=== PATIENT | male | born 1945 | race Hispanic/Latino ===

== ENCOUNTER 2016-11-10 15:16 | Emergency (ER) | payer MEDICARE, MEDICAID ==
[2016-11-10 15:17] VITALS: BMI 26.6
[2016-11-10 15:47] VITALS: RESP 18
[2016-11-10] MEDS ORDERED: Phenylephrine 1% Nasal Spray (15 ml) NAS STA (16:36)
--- NOTE | 2016-11-10 16:41 | C.PDOC ---
History Of Present Illness 71 year old patient, with a past medical history of hypertension, presents to the ED complaining of injuries after falling prior to arrival. Patient states he slipped in the rain and fell face first onto the [place]. Patient now complains of a mild headache and nasal pain. He notes he only fell due to the rain and denies any other complaints. - HPI Time Seen by Provider: 11/10/16 16:00 Chief Complaint (Nursing): Trauma History Per: Patient History/Exam Limitations: no limitations Onset/Duration Of Symptoms: Mins (just prior to arrival) Location Of Injury: Anterior: Face Severity: Mild Pain Scale Rating Of: 3 Recent travel outside of the [place]: No - Fall Fall:Prior To Injury: Slipped Past Medical History Reviewed: Historical Data, Nursing Documentation, Vital Signs Vital Signs: Last Vital Signs Temp 97.7 F 11/10/16 16:57 Pulse 66 11/10/16 16:57 Resp 18 11/10/16 16:57 BP 171/86 H 11/10/16 16:57 Pulse Ox 100 11/10/16 17:47 - Medical History PMH: Arthritis, HTN, Seizures - [facility] Procedures CLOSED ENDOSCOPIC BIOPSY OF LARGE INTESTINE (01/20/13) ESOPHAGOGASTRODUODENOSCOPY [EGD] W/CLOSED BIOPSY (01/20/13) Family History: States: Unknown Family Hx - Social History Hx Tobacco Use: No Hx Alcohol Use: No Hx Substance Use: No - Immunization History Hx Tetanus Toxoid Vaccination: Yes Hx Influenza Vaccination: Yes Hx Pneumococcal Vaccination: No Review Of Systems Except As Marked, All Systems Reviewed And Found Negative. Constitutional: Negative for: Fever ENT: Positive for: Nose Pain Cardiovascular: Negative for: Chest Pain Respiratory: Negative for: Shortness of Breath Gastrointestinal: Negative for: Nausea, Vomiting Neurological: Positive for: Headache. Negative for: Weakness, Numbness, Dizziness Physical Exam - Physical Exam Appears: Non-toxic, No Acute Distress Skin: Warm, Dry Head: Atraumatic, Normacephalic Eye(s): bilateral: Normal Inspection, PERRL, EOMI Ear(s): Bilateral: Normal Nose: Epistaxis (dried blood), Deformity, Tenderness (mild), No Septal Hematoma , Other (dry blood to bilateral nares) Oral Mucosa: Moist Throat: Normal Neck: Normal ROM, No Midline Cervical Tenderness, No Paracervical Tenderness, No Step Off Deformity, Supple Chest: Symmetrical Cardiovascular: Rhythm Regular Respiratory: Normal Breath Sounds, No Rales, No Rhonchi, No Wheezing Gastrointestinal/Abdominal: Soft, No Tenderness Back: Normal Inspection, No CVA Tenderness Extremity: Normal ROM Neurological/Psych: Oriented x3, Normal Speech, Normal Cognition Gait: Steady ED Course And Treatment O2 Sat by Pulse Oximetry: 100 (room air) Pulse Ox Interpretation: Normal Medical Decision Making Medical Decision Making: Impression: 71 y/o male with headache and nasal pain s/p fall Plan: * Head CT w/o contrast * Maxillofacial CT w/o contrast * Adacel * Phenylephrine 545: pt with nasal bone fracture. bleeding controlled. ct head neg. advise outpt f/u and return precautions Disposition - Disposition Referrals: Byron Morales MD [Staff Provider] - Disposition: HOME/ ROUTINE Disposition Time: 17:44 Condition: STABLE Additional Instructions: please follow up with ENT. return to er with worsening symptoms or concerns. Instructions: Nasal Fracture (ED), Head Injury (ED) - Clinical Impression Clinical Impression: Nasal bone fracture, Head injury - Scribe Statement Pily Landa Provider Attestation: All medical record entries made by the Scribe were at my direction and personally dictated by me. I have reviewed the chart and agree that the record accurately reflects my personal performance of the history, physical exam, medical decision making, and the department course for this patient. I have also personally directed, reviewed, and agree with the discharge instructions and disposition.
[2016-11-10 16:58] VITALS: BP 171/86; PULSE 66; TEMP 97.7
[2016-11-10 17:20] VITALS: O2SAT 100
[2016-11-10] MEDS ORDERED: Phenylephrine 1% Nasal Spray (15 ml) ONE (17:20)
--- NOTE | 2016-11-10 17:36 | CT ---
PROCEDURE: CT HEAD WITHOUT CONTRAST. HISTORY: fall COMPARISON: Comparison is made to the previous study dated 09/21/2015 TECHNIQUE: Axial computed tomography images were obtained through the head/brain without intravenous contrast. Radiation dose: Total exam DLP = 838.43 mGy-cm. This CT exam was performed using one or more of the following dose reduction techniques: Automated exposure control, adjustment of the mA and/or kV according to patient size, and/or use of iterative reconstruction technique. FINDINGS: HEMORRHAGE: No intracranial hemorrhage. BRAIN: Small encephalomalacia at the right temporal lobe at the region of previously seen hemorrhagic contusion. Mild atrophy. VENTRICLES: Unremarkable. No hydrocephalus. CALVARIUM: Unremarkable. PARANASAL SINUSES: Unremarkable as visualized. No significant inflammatory changes. MASTOID AIR CELLS: Unremarkable as visualized. No inflammatory changes. OTHER FINDINGS: None. IMPRESSION: No evidence of acute intracranial hemorrhage intracranial collection mass effect or midline shift. Small encephalomalacia at the right temporal lobe at the region of previously seen hemorrhagic contusion.
--- NOTE | 2016-11-10 17:43 | CT ---
PROCEDURE: CT MAXILLOFACIAL BONES WITHOUT CONTRAST HISTORY: fall COMPARISON: None TECHNIQUE: Contiguous axial CT images of the maxillofacial bones were obtained. Coronal and sagittal reformats were generated. Radiation dose: Total exam DLP = 825.35 mGy-cm. This CT exam was performed using one or more of the following dose reduction techniques: Automated exposure control, adjustment of the mA and/or kV according to patient size, and/or use of iterative reconstruction technique. FINDINGS: NASAL BONES: There is nondisplaced left nasal bone fracture. There is also displaced nasal septal fracture. Opacification of the left nasal cavity could be due to hemorrhage. ORBITS: Unremarkable. PARANASAL SINUSES/ MASTOIDS: Clear. MAXILLA: Unremarkable. MANDIBLE/ TEMPOROMANDIBULAR JOINTS: Unremarkable. SKULL BASE: Unremarkable. TEMPORAL BONES: Middle ears and mastoid grossly unremarkable. OTHER FINDINGS: Advanced degenerative changes at the cervical spine P IMPRESSION: Nasal bone fracture. Displaced nasal septum fracture. Opacification of the left nasal cavity could be due to hemorrhage. Otherwise no acute fracture.
== END 2016-11-10 18:05 | disposition home or self-care (01) ==
LOC: C.ER 15:16
DX: S02.2XXA Fracture of nasal bones, initial encounter for closed fracture (principal); W01.0XXA Fall on same level from slipping, tripping and stumbling without subsequent striking against object, initial encounter; Y92.480 Sidewalk as the place of occurrence of the external cause

== ENCOUNTER 2016-11-24 14:02 | Inpatient (IN) | payer MEDICARE, MEDICAID ==
[2016-11-24 14:02] VITALS: BMI 26.6
[2016-11-24 15:18] LABS: BASO # 0.1 K/uL (0.0-0.2); BASO % 0.9 % (0.0-2.0); EOS # 0.2 K/uL (0.0-0.7); EOS % 2.4 % (0.0-4.0); HEMATOCRIT 35.4 % (35.0-51.0); LYMPH # 0.8 K/uL (1.0-4.3); LYMPH % 11.9 % (20.0-40.0); MEAN CELL VOLUME 88.6 fL (80.0-94.0); MEAN CORPUSCULAR HGB CONC 32.7 g/dL (33.0-37.0); MEAN PLATELET VOLUME 7.2 fL (7.2-11.7); MONO # 0.5 K/uL (0.0-0.8); RED CELL DISTRIBUTION WIDTH 14.8 % (11.5-14.5); WHITE BLOOD COUNT 6.9 K/uL (4.8-10.8)
[2016-11-24 15:26] LABS: CHLORIDE 97 mmol/L (98-107); SODIUM 134 mmol/L (132-148)
[2016-11-24 15:29] LABS: ALB/GLOB RATIO 1.5 (1.0-2.1); AST/SGOT 28 U/L (17-59); BILIRUBIN,TOTAL 0.5 mg/dL (0.2-1.3); CARBON DIOXIDE 30 mmol/L (22-30); GFR AFRICAN-AMERICAN > 60; TOTAL PROTEIN 6.2 g/dL (6.3-8.3)
[2016-11-24 15:30] LABS: ALKALINE PHOSPHATASE 109 U/L (38-126); ALT/SGPT 24 U/L (21-72); BLOOD UREA NITROGEN 13 mg/dL (9-20); GLUCOSE,RANDOM 79 mg/dL (75-110)
[2016-11-24 15:36] LABS: INR 0.9
--- NOTE | 2016-11-24 15:42 | CT ---
PROCEDURE: CT HEAD WITHOUT CONTRAST. HISTORY: seizure COMPARISON: 11/10/2016 TECHNIQUE: Axial computed tomography images were obtained through the head/brain without intravenous contrast. Radiation dose: Total exam DLP = 981.84 mGy-cm. This CT exam was performed using one or more of the following dose reduction techniques: Automated exposure control, adjustment of the mA and/or kV according to patient size, and/or use of iterative reconstruction technique. FINDINGS: HEMORRHAGE: Very small amount of subdural blood in the interhemispheric fissure posteriorly and along the tentorium cerebelli, right greater than left. No other extra-axial collection is identified. No subarachnoid blood no intraventricular hemorrhage. BRAIN: No mass effect or edema. Minimal encephalomalacia right temporal lobe at the location of prior hemorrhagic contusion. No significant generalized atrophy. No significant chronic white matter ischemic change. No evidence of acute infarct. VENTRICLES: Unremarkable. No hydrocephalus. CALVARIUM: Unremarkable. PARANASAL SINUSES: Unremarkable as visualized. No significant inflammatory changes. MASTOID AIR CELLS: Unremarkable as visualized. No inflammatory changes. OTHER FINDINGS: None. IMPRESSION: Small subdural hemorrhage in the interhemispheric fissure and over the tentorium cerebelli. No other extra-axial collection. No parenchymal hemorrhage. No intraventricular hemorrhage. Minimal encephalomalacia right temporal lobe status post hemorrhagic contusion. These findings were discussed by telephone with Dr. Lechuga at 3:40 p.m. on 11/24/2016.
--- NOTE | 2016-11-24 15:44 | C.PDOC ---
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 Patient is unable to recall details of the event and states he "just woke up in the ambulance." Patient states he has a history of seizures and has been compliant with his Rx for Dilantin. (+) headache. no visual changes. No tongue biting. He denies nausea, vomiting, urinary/bowel incontinence, upper/lower extremity numbness/weakness. Time Seen by Provider: 11/24/16 14:50 Chief Complaint (Nursing): Seizure History Per: Patient, EMS History/Exam Limitations: no limitations Recent Seizure Activity Began: Just Before Arrival Length Of Seizures (Duration): Unknown Past Medical History Reviewed: Historical Data, Nursing Documentation, Vital Signs Vital Signs: Last Vital Signs Temp 98.6 F 11/24/16 17:23 Pulse 70 11/24/16 17:23 Resp 18 11/24/16 17:23 BP 161/64 H 11/24/16 17:23 Pulse Ox 98 11/24/16 19:14 - Medical History PMH: Arthritis, HTN, Seizures Denies: Chronic Kidney Disease Surgical History: No Surg Hx - [facility] Procedures CLOSED ENDOSCOPIC BIOPSY OF LARGE INTESTINE (01/20/13) ESOPHAGOGASTRODUODENOSCOPY [EGD] W/CLOSED BIOPSY (01/20/13) Family History: States: Unknown Family Hx - Social History Hx Tobacco Use: No Hx Alcohol Use: No Hx Substance Use: No - Immunization History Hx Tetanus Toxoid Vaccination: Yes Hx Influenza Vaccination: Yes Hx Pneumococcal Vaccination: No Review Of Systems Except As Marked, All Systems Reviewed And Found Negative. Gastrointestinal: Negative for: Nausea, Vomiting Genitourinary: Negative for: Incontinence Neurological: Positive for: Seizures, Headache Physical Exam - Physical Exam Appears: Non-toxic, No Acute Distress Skin: Normal Color, Warm, Dry Head: Normacephalic, Tenderness (left lateral), Laceration (2cm, to left parietal lobe) Eye(s): bilateral: Normal Inspection, PERRL, EOMI Ear(s): Bilateral: Normal Nose: Normal, No Discharge Oral Mucosa: Moist Tongue: Normal Appearing, No Bite Neck: Normal ROM, Supple Lymphatic: Normal Exam Chest: Symmetrical, No Deformity, No Tenderness Cardiovascular: Rhythm Regular, No Murmur Respiratory: Normal Breath Sounds, No Rales, No Rhonchi, No Wheezing Gastrointestinal/Abdominal: Soft, No Tenderness, No Guarding Back: Normal Inspection, No Vertebral Tenderness, No Paraspinal Tenderness Extremity: Normal ROM, Capillary Refill (less than 2 seconds ) Neurological/Psych: Oriented x3, Normal Speech, Normal Cognition, Other (no focal deficits ) Gait: Steady ED Course And Treatment - Laboratory Results Result Diagrams: 11/24/16 15:14 11/24/16 15:14 ECG: Interpreted By Me, Viewed By Me ECG Rhythm: Sinus Rhythm Interpretation Of ECG: Sinus Rhythm at rate 74bpm. Nonspecific changes. Rate From EC O2 Sat by Pulse Oximetry: 98 (on RA) Pulse Ox Interpretation: Normal - CT Scan/US CT Head Other Rad Studies (CT/US): Interpreted By Me, Read By Radiologist, Radiology Report Reviewed CT/US Interpretation: Accession No. : [id number]. Patient Name / ID : LAUREL ALVARENGA / [id number]. Exam Date : 11/24/2016 15:23:54 ( Approved ). Study Comment : Sex / Age : M / 71Y. Creator : Ashwin Rosales MD. Dictator : Ashwin Rosales MD. Heel Seat Pounder : Legal Project Manager : Ashwin Rosales MD. Approver2 : Report Date : 11/24/2016 15:40:58. My Comment : . PROCEDURE : CT HEAD WITHOUT CONTRAST. HISTORY: seizure. COMPARISON: 11/10/2016. TECHNIQUE: Axial computed tomography images were obtained through the head/ brain without intravenous contrast. Radiation dose: Total exam DLP = 981.84 mGy-cm. This CT exam was performed using one or more of the following dose reduction techniques: Automated exposure control, adjustment of the mA and/or kV according to patient size, and/or use of iterative reconstruction technique. FINDINGS: HEMORRHAGE: Very small amount of subdural blood in the interhemispheric fissure posteriorly and along the tentorium cerebelli, right greater than left. No other extra-axial collection is identified. No subarachnoid blood no intraventricular hemorrhage. BRAIN: No mass effect or edema. Minimal encephalomalacia right temporal lobe at the location of prior hemorrhagic contusion. No significant generalized atrophy. No significant chronic white matter ischemic change. No evidence of acute infarct. VENTRICLES : Unremarkable. No hydrocephalus. CALVARIUM: Unremarkable. PARANASAL SINUSES : Unremarkable as visualized. No significant inflammatory changes. MASTOID AIR CELLS: Unremarkable as visualized. No inflammatory changes. OTHER FINDINGS : None. IMPRESSION: Small subdural hemorrhage in the interhemispheric fissure and over the tentorium cerebelli. No other extra-axial collection. No parenchymal hemorrhage. No intraventricular hemorrhage. Minimal encephalomalacia right temporal lobe status post hemorrhagic contusion. These findings were discussed by telephone with Dr. Lechuga at 3:40 p.m. on 11/24/2016. Progress Note: labs, EKG, CT Head ordered and reviewed. Patient recieved Dilantin IV, Tylenol PO. Case discussed with Dr. Crooks, who instructs admission and repeat Head CT tomorrow. Case discussed with Dr. Murdock, who agrees with plan for admission. Laceration - Laceration Repair left partial scalp Wound Length (In cm): 2 cm Description Of Wound: Irregular Wound Cleansed With: Betadine, Sterile Saline Anesthesia: Lidocaine 1%, With Epi Wound Examination: Irrigated With Saline, No FB With Wound Exploration, No Tendon Injury With Wound Exploration Wound Closure: Ag (2) Wound Complexity: Simple Disposition - Disposition Disposition: HOSPITALIZED Disposition Time: 16:26 Condition: STABLE - Clinical Impression Clinical Impression: Subdural hemorrhage, Seizure - PA / SOLAR PANEL TECHNICIAN / Resident Statement MD/DO has reviewed & agrees with the documentation as recorded. - Scribe Statement The provider has reviewed the documentation as recorded by the Scribe (Tamiko Landa) All medical record entries made by the Scribe were at my direction and personally dictated by me. I have reviewed the chart and agree that the record accurately reflects my personal performance of the history, physical exam, medical decision making, and the department course for this patient. I have also personally directed, reviewed, and agree with the discharge instructions and disposition.
[2016-11-24] MEDS ORDERED: Phenytoin 100 mg/2 ml Inj IVP STA (15:55)
[2016-11-24] MEDS ORDERED: Bacitracin 500 Units/gm Oint Foilpak UD ONE (16:24)
[2016-11-24] MEDS ORDERED: Lidocaine 2% w Epi 1:100,000 Inj IJ ONE (16:32)
[2016-11-24 17:00] LABS: RBC URINE < 1 /hpf (0-3); URINE BACTERIA RARE (<OCC); URINE BILIRUBIN NEGATIVE (NEGATIVE); URINE BLOOD NEGATIVE (NEGATIVE); URINE COLOR Yellow (YELLOW); URINE GLUCOSE (UA) NORMAL (Normal); URINE KETONE NEGATIVE (NEGATIVE); URINE LEUKOCYTE ESTERASE NEG Leu/uL (Negative); URINE PROTEIN NEGATIVE (NEGATIVE); URINE UROBILINOGEN NORMAL mg/dL (0.2-1.0); WBC URINE < 1 /hpf (0-5)
--- NOTE | 2016-11-24 18:51 | DS ---
This is a 71-year-old gentleman with a known seizure disorder, does not have any recollection for the incident. Apparently suffered a grand mal seizure, fell, struck his head, suffered a left parietal laceration. CT showed a small amount of subdural blood layering along the tentorium. The patient is bright, awake and alert. He is oriented x 3, follows all commands. Pupils are equal, reactive. EOMs are full. Face is symmetric. He is moving all extremities with 5/5 strength. Sens ory exam is grossly intact. CT of the brain shows a very minimal amount of layering of subdural blood along the tentorium of no c linical significance. IMPRESSION AND PLAN: The patient is being admitted for seizure management to get his anticonvulsants drug level back up. My recommendation would be just simply to repeat a CT tomorrow morning. It is very unlikely that will be worsened and then from my standpoint, he can be safely discharged. Javi Crooks MD cc: 131 TT: 11/24/2016 18:51:29 jn
[2016-11-24 19:35] VITALS: RESP 20
[2016-11-25 07:44] LABS: HEMATOCRIT 38.3 % (35.0-51.0); MEAN CELL VOLUME 88.9 fL (80.0-94.0); MEAN CORPUSCULAR HEMOGLOBIN 29.9 pg (27.0-31.0); MEAN CORPUSCULAR HGB CONC 33.6 g/dL (33.0-37.0); MEAN PLATELET VOLUME 7.5 fL (7.2-11.7); RED CELL DISTRIBUTION WIDTH 14.7 % (11.5-14.5); WHITE BLOOD COUNT 6.3 K/uL (4.8-10.8)
[2016-11-25 07:48] LABS: CHLORIDE 99 mmol/L (98-107)
[2016-11-25 07:49] LABS: POTASSIUM 4.1 mmol/L (3.6-5.2); SODIUM 137 mmol/L (132-148)
[2016-11-25 07:50] LABS: BILIRUBIN,TOTAL 0.6 mg/dL (0.2-1.3); CARBON DIOXIDE 33 mmol/L (22-30); GFR AFRICAN-AMERICAN > 60
[2016-11-25 07:51] LABS: ALB/GLOB RATIO 1.4 (1.0-2.1); ALKALINE PHOSPHATASE 113 U/L (38-126); ALT/SGPT 23 U/L (21-72); AST/SGOT 24 U/L (17-59); BLOOD UREA NITROGEN 13 mg/dL (9-20); CALCIUM 8.5 mg/dl (8.6-10.4); GLUCOSE,RANDOM 86 mg/dL (75-110); TOTAL PROTEIN 6.2 g/dL (6.3-8.3)
[2016-11-25] MEDS: Multiple Vitamins Tab PO SCH (10:35)
--- NOTE | 2016-11-25 11:54 | CARD ---
APPROVED REPORT EKG Measurement Heart [id number] OR [id number] <Conclusion> Normal sinus rhythm Incomplete right bundle branch block Left anterior fascicular block Minimal voltage criteria for LVH, may be normal variant Septal infarct, age undetermined Abnormal ECG
--- NOTE | 2016-11-25 13:14 | CP.PCM.HP ---
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 Patient is unable to recall details of the event and states he "just woke up in the ambulance." Patient states he has a history of seizures and has been compliant with his Rx for Dilantin. (+) headache. no visual changes. No tongue biting. He denies nausea, vomiting, urinary/bowel incontinence, upper/lower extremity numbness/weakness. Present on Admission - Present on Admission Any Indicators Present on Admission: Yes Review of Systems - Review of Systems Systems not reviewed;Unavailable: Acuity of Condition - Constitutional Constitutional: Fatigue, Lethargy, Malaise - EENT Eyes: absent: As Per HPI, Blind Spots, Blurred Vision, Change in Vision, Decreased Night Vision, Diplopia, Discharge, Dry Eye, Exophthalmos, Floaters, Irritation, Itchy Eyes, Loss of Peripheral Vision, Pain, Photophobia, Requires Corrective Lenses, Sees Flashes, Spots in Vision, Tunnel Vision, Other Visual Disturbances, Loss of Vision, Other Nose/Mouth/Throat: absent: As Per HPI, Epistaxis, Nasal Congestion, Nasal Discharge, Nasal Obstruction, Nasal Trauma, Nose Pain, Post Nasal Drip, Sinus Pain, Sinus Pressure, Bleeding Gums, Change in Voice, Dental Pain, Dry Mouth, Dysphagia, Halitosis, Hoarsness, Lip Swelling, Mouth Lesions, Mouth Pain, Odynophagia, Sore Throat, Throat Swelling, Tongue Swelling, Facial Pain, Neck Pain, Neck Mass, Other - Cardiovascular Cardiovascular: absent: As Per HPI, Acrocyanosis, Chest Pain, Chest Pain at Rest , Chest Pain with Activity, Claudication, Diaphoresis, Dyspnea, Dyspnea on Exertion, Edema, Irregular Heart Rhythm, Pain Radiating to Arm/Neck/Jaw, Leg Edema, Leg Ulcers, Lightheadedness, Orthopnea, Palpitations, Paroxysmal Nocturnal Dyspnea, Pedal Edema, Radiating Pain, Rapid Heart Rate, Slow Heart Rate, Syncope, Other - Respiratory Respiratory: absent: As Per HPI, Cough, Dyspnea, Hemoptysis, Dyspnea on Exertion , Wheezing, Snoring, Stridor, Pain on Inspiration, Chest Congestion, Excessive Mucous Production, Change in Mucous Color, Pain with Coughing, Other - Gastrointestinal Gastrointestinal: absent: As Per HPI, Abdominal Pain, Belching, Bloating, Change in Bowel Habits, Change in Stool Character, Coffee Ground Emesis, Constipation, Cramping, Diarrhea, Dyspepsia, Dysphagia, Early Satiety, Excessive Flatus, Fecal Incontinence, Heartburn, Hematemesis, Hematochezia, Loose Stools, Melena, Nausea, Odynophagia, Temesmus, Vomiting, Other - Neurological Neurological: Abnormal Movements, Dizziness. absent: As Per HPI, Abnormal Gait , Abnormal Hearing, Abnormal Speech, Behavioral Changes, Burning Sensations, Confusion, Convulsions, Disequilibrium, Numbness, Focal Weakness, Frequent Falls , Headaches, Lack of Coordination, Loss of Vision, Memory Loss, Paresthesias, Radicular Pain, Restless Legs, Sensory Deficit, Syncope, Tingling, Tremor, Vertigo, Weakness, Other Visual Disturbances, Other - Psychiatric Psychiatric: absent: As Per HPI, Abnormal Sleep Pattern, Anhedonia, Anxiety, Auditory Hallucinations, Behavioral Changes, Change in Appetite, Change in Libido, Confusion, Depression, Difficulty Concentrating, Hallucinations, Homicidal Ideation, Hopelessness, Irritability, Memory Loss, Mood Swings, Panic Attacks, Paranoia, Suicidal Ideation, Visual Hallucinations, Tactile Hallucinations, Other Past Patient History - Infectious Disease Hx of Infectious Diseases: None - Past Medical History & Family History Past Medical History?: Yes - Past Social History Smoking Status: Former Smoker - CARDIAC Hx Hypertension: Yes - PULMONARY Hx Respiratory Disorders: No - NEUROLOGICAL Hx Seizures: Yes - HEENT Hx HEENT Problems: Yes Other/Comment: glasses for reading - RENAL Hx Chronic Kidney Disease: No - ENDOCRINE/METABOLIC Hx Endocrine Disorders: No - HEMATOLOGICAL/ONCOLOGICAL Hx Blood Disorders: No - INTEGUMENTARY Hx Dermatological Problems: No - MUSCULOSKELETAL/RHEUMATOLOGICAL Hx Arthritis: Yes - GASTROINTESTINAL Hx Gastrointestinal Disorders: No - GENITOURINARY/GYNECOLOGICAL Hx Genitourinary Disorders: No - PSYCHIATRIC Hx Substance Use: No - SURGICAL HISTORY Hx Surgeries: Yes Hx Orthopedic Surgery: Yes (LEFT SHOULDER) - ANESTHESIA Hx Anesthesia: Yes Hx Anesthesia Reactions: No Hx Malignant Hyperthermia: No Has any member of the family had a problem w/ anesthesia?: No Meds Allergies/Adverse Reactions: Allergies Allergy/AdvReac Type Severity Reaction Status Date / Time No Known Allergies Allergy Verified 11/24/16 14:13 Physical Exam - Constitutional Appears: No Acute Distress, Confused - Head Exam Head Exam: ATRAUMATIC, NORMAL INSPECTION, NORMOCEPHALIC - Eye Exam Eye Exam: EOMI, Normal appearance, PERRL Pupil Exam: NORMAL ACCOMODATION, PERRL - ENT Exam ENT Exam: Mucous Membranes Moist, Normal Exam - Respiratory Exam Respiratory Exam: Clear to Auscultation Bilateral, NORMAL BREATHING PATTERN - Cardiovascular Exam Cardiovascular Exam: REGULAR RHYTHM - GI/Abdominal Exam GI & Abdominal Exam: Normal Bowel Sounds, Soft. absent: Tenderness Results - Vital Signs Recent Vital Signs: Last Vital Signs Temp 97.7 F 11/25/16 04:25 Pulse 97 H 11/25/16 11:26 Resp 20 11/25/16 04:25 BP 163/94 H 11/25/16 11:26 Pulse Ox 100 11/25/16 11:26 - Labs Result Diagrams: 11/25/16 07:27 11/25/16 07:27 Labs: Laboratory Results - last 24 hr 11/24/16 11/24/16 11/25/16 16:02 23:50 07:27 WBC 6.3 RBC 4.30 L Hgb 12.9 Hct 38.3 MCV 88.9 MCH 29.9 MCHC 33.6 RDW 14.7 H Plt Count 223 MPV 7.5 Sodium Potassium Chloride Carbon Dioxide Anion Gap BUN Creatinine Est GFR ( Amer) Est GFR (Non-Af Amer) Random Glucose Calcium Total Bilirubin AST ALT Alkaline Phosphatase Total Protein Albumin Globulin Albumin/Globulin Ratio Urine Color Yellow Urine Clarity Clear Urine pH 7.0 Ur Specific [place] 1.010 Urine Protein Negative Urine Glucose (UA) Normal Urine Ketones Negative Urine Blood Negative Urine Nitrate Negative Urine Bilirubin Negative Urine Urobilinogen Normal Ur Leukocyte Esterase Neg Urine WBC (Auto) < 1 Urine RBC (Auto) < 1 Ur Squamous Epith Cells < 1 Urine Bacteria Rare Urine Opiates Screen Negative Urine Methadone Screen Negative Ur Barbiturates Screen Negative Phenytoin Ur Phencyclidine Scrn Negative Ur Amphetamines Screen Negative U Benzodiazepines Scrn Negative U Oth Cocaine Metabols Negative U Cannabinoids Screen Negative 11/25/16 11/25/16 07:27 07:27 WBC RBC Hgb Hct MCV MCH MCHC RDW Plt Count MPV Sodium 137 Potassium 4.1 Chloride 99 Carbon Dioxide 33 H Anion Gap 9 L BUN 13 Creatinine 0.9 Est GFR ( Amer) > 60 Est GFR (Non-Af Amer) > 60 Random Glucose 86 Calcium 8.5 L Total Bilirubin 0.6 AST 24 ALT 23 Alkaline Phosphatase 113 Total Protein 6.2 L Albumin 3.6 Globulin 2.6 Albumin/Globulin Ratio 1.4 Urine Color Urine Clarity Urine pH Ur Specific [place] Urine Protein Urine Glucose (UA) Urine Ketones Urine Blood Urine Nitrate Urine Bilirubin Urine Urobilinogen Ur Leukocyte Esterase Urine WBC (Auto) Urine RBC (Auto) Ur Squamous Epith Cells Urine Bacteria Urine Opiates Screen Urine Methadone Screen Ur Barbiturates Screen Phenytoin 18.7 Ur Phencyclidine Scrn Ur Amphetamines Screen U Benzodiazepines Scrn U Oth Cocaine Metabols U Cannabinoids Screen Assessment & Plan (1) Subdural hemorrhage Status: Suspected (2) Seizure Status: Chronic (3) Head injury Status: Acute
--- NOTE | 2016-11-25 13:14 | CP.PCM.PN ---
Subjective - Date & Time of Evaluation Date of Evaluation: 11/25/16 Time of Evaluation: 10:00 - Subjective Subjective: seen & evaluated Objective - Vital Signs/Intake and Output Vital Signs (last 24 hours): Temp Pulse Resp BP Pulse Ox 97.7 F 97 H 20 163/94 H 100 11/25/16 04:25 11/25/16 11:26 11/25/16 04:25 11/25/16 11:26 11/25/16 11:26 Intake and Output: 11/25/16 11/25/16 06:59 18:59 Output Total 1000 Balance -1000 - Medications Medications: Current Medications Acetaminophen (Tylenol 325mg Tab) 650 mg PO Q6 PRN PRN Reason: Headache Last Admin: 11/25/16 10:57 Dose: 650 mg Levetiracetam (Keppra) 500 mg PO BID [facility] Last Admin: 11/25/16 10:58 Dose: 500 mg Lisinopril (Zestril) 2.5 mg PO DAILY [facility] Last Admin: 11/25/16 12:55 Dose: 2.5 mg Multivitamins (Hexavitamin) 1 tab PO DAILY [facility] Last Admin: 11/25/16 10:35 Dose: Not Given Phenytoin Sodium (Dilantin) 100 mg PO QID [facility] Last Admin: 11/25/16 09:30 Dose: 100 mg - Labs Labs: 11/25/16 07:27 11/25/16 07:27 PT 10.1 SECONDS (9.7-12.2) 11/24/16 15:14 INR 0.9 11/24/16 15:14 APTT 31 SECONDS (21-34) 11/24/16 15:14 - Constitutional Appears: No Acute Distress - Head Exam Head Exam: ATRAUMATIC, NORMAL INSPECTION, NORMOCEPHALIC - Eye Exam Eye Exam: EOMI, Normal appearance, PERRL Pupil Exam: NORMAL ACCOMODATION, PERRL
--- NOTE | 2016-11-25 23:09 | CON ---
DATE: 11/25/2016 ATTENDING PHYSICIAN: Dr. Murdock REASON FOR CONSULTATION: Breakthrough seizures. HISTORY OF PRESENT ILLNESS: The patient is a 71-year-old gentleman with past medical history of meningitis as a child with a seizure disorder, on Dilantin. The patient had an episode of seizures followed by postictal confusion. The patient stated that he was with a friend and then saw himself in the ambulance. The patient is unable to give a detailed history. The patient does not recall how frequently gets the seizure. Does not recall when was the last seizure he had, although patient is alert, awake, oriented x 3. The patient stated that he has been on Dilantin for years as far as he recalls. In addition , the patient is complaining from unsteadiness and tendency to fall for a long time. PAST MEDICAL HISTORY: Seizure disorder, meningitis as a child. SOCIAL HISTORY: Nonsmoker, ethanol or drug abuser. ALLERGIES: No known allergic reaction to medications. FAMILY HISTORY: Noncontributory. MEDICATIONS: Dilantin. VITAL SIGNS: Blood pressure 163/94, respiration 20, temperature afebrile, pulse 97. LABORATORY DATA: Reviewed. PHYSICAL EXAMINATION: MENTAL STATUS: The patient is alert, awake, oriented x 3. Normal naming, repetition, comprehension, decreased attention span. Short-term memory, slow mental processing. Impaired calculation, recall. CRANIAL NERVES: Pupils are 2 mm bilaterally reactive. No facial asymmetry. Positive end gaze nystagmus bilaterally. No facial palsy, V1-V3 intact. MOTOR: Normal tone in upper extremities. No pronation drift. Fine finger movement impaired. Alternative movement impaired. Upper extremity, deltoid, elbow lead electrical engineer 5/5. Lower extremities, hip flexion, knee flexion and extension, ankle 5/5. Deep tendon reflexes 1-2 in the upper and lower extremities. Plantars flexion. SENSORY: Pinprick, light touch symmetrical. COORDINATION: Keibxg-dg-zaxs intact. Zxwr-au-igkb impaired. IMAGING: CAT scan of the brain reviewed, consistent with atrophy and minimal calcification in bilateral basal ganglia. IMPRESSION: Breakthrough seizures, probably secondary to low Dilantin level. The patient's Dilantin level was 3 at admission. Repeat Dilantin is pending. I strongly recommend to start the patient on Keppra rather than Dilantin because of the compliance and Dilantin needs continuous Dilantin levels and at least 750 mg of Keppra. I have started the patient on 500. Can be increased to 750, and then taper off Dilantin after discharge, 1 tablet every week or every 2 weeks. The patient does have a baseline dementia and the patient's ataxia could be secondary to patient's fluctuating Dilantin levels and longe time use of dilantin can cause neuropathy, it can be addressed as an out patient. The other option can be Lamictal, and then gradually increase Lamictal and taper off Dilantin. I strongly recommend the patient to be followed up by neurologist as an outpatient after discharge. No further workup recommended. The patient is known with a history of seizures in the past. follow up dilantin level. CAT scan did not reveal subdural hematoma or bleed. No need for EEG, as well. Thank you for the consultation. I will sign off the case. If needed, I can be called. Geronimo Crabtree MD cc: [id number] TT: 11/25/2016 23:09:14 Confirmation # [id number] Dictation # [id number] OMER
[2016-11-26] MEDS: Multiple Vitamins Tab PO SCH (10:09)
--- NOTE | 2016-11-26 10:44 | PN ---
DATE: 11/26/2016 ATTENDING PHYSICIAN: Dr. Murdock. The patient is complaining from a headache. No nausea, no vomiting. The patient is awake, alert, or iented to person, place, and time. Slow mental processing, decreased attention span, short-term maya ry. PHYSICAL EXAMINATION: VITAL SIGNS: Blood pressure 126/75, pulse 66, respirations 20. CRANIAL NERVES: Pupils are symmetrical, reactive. No facial asymmetry. No field defect. No photop hobia, no phonophobia, no nausea, no vomiting. MOTOR: Upper extremity, deltoid, elbow splicer helper 5/5. Lower extremities, hip, knee, ankle 5/5. COORDINATION: Qlkfzo-rt-hlqb intact. Uups-ta-hkml impaired. The patient is ataxic. IMPRESSION: After reviewing the CAT scan of the brain, the CAT scan is consistent with subdural smal l thin subdural hematoma in the falx cerebri and falx cerebelli extending to the left temporal region , and there is a questionable right frontal contusion. Status post a fall and soft tissue swelling in the left parietal region, and traumatic thin subdural hematoma, and questionable contrecoup contusion in the right temporal anterior region. We will repea t the CAT scan of the brain, and in addition, for his breakthrough seizures, I strongly recommend to continue the patient on Keppra and then taper off gradually Dilantin after discharge. The patient is preferable to be transferred to subacute rehab for lower extremity strengthening and a mbulation, and that is one of the reasons because of the patient's ataxia and falls, and the patient' s Dilantin should be tapered off because of ____compliant and because of the frequent falls. Thank you for the consultation. I will sign off the case. If needed, I can be called. Geronimo Crabtree MD cc: [id number] TT: 11/26/2016 10:44:00 Confirmation # [id number] Dictation # [id number]
--- NOTE | 2016-11-26 11:12 | CT ---
PROCEDURE: CT HEAD WITHOUT CONTRAST. HISTORY: f/u hematoma COMPARISON: None available. TECHNIQUE: Axial computed tomography images were obtained through the head/brain without intravenous contrast. Radiation dose: Total exam DLP = 981.84 mGy-cm. This CT exam was performed using one or more of the following dose reduction techniques: Automated exposure control, adjustment of the mA and/or kV according to patient size, and/or use of iterative reconstruction technique. FINDINGS: HEMORRHAGE: There has been no significant interval change in the small right tentorial subdural hematoma and small subdural hemorrhage along the posterior interhemispheric fissure on the right. BRAIN: There is redemonstration of a 13 mm high attenuation area in the posterior right temporal lobe with surrounding low attenuation stable since August 2015. Allred-white matter differentiation is preserved. There is no mass, mass effect or territorial infarction.There are coarse atherosclerotic calcifications in the cavernous carotid arteries. VENTRICLES: There is mild age-related global parenchymal volume loss and proportionate enlargement of the ventricles and cortical sulci. CALVARIUM: The skull base and calvarium are normal. PARANASAL SINUSES: Predominantly clear. MASTOID AIR CELLS: Predominantly clear. OTHER FINDINGS: None. IMPRESSION: No significant interval change in small right tentorial subdural hematoma and small subdural hemorrhage along the posterior interhemispheric fissure on the right. Suspect 13 mm encephalomalacia/ old contusions in the right posterior temporal lobe.
--- NOTE | 2016-11-26 13:50 | CARD ---
APPROVED REPORT EXAM: Two-dimensional and M-mode echocardiogram with Doppler and color Doppler. Other Information Quality : AverageRhythm : NSR INDICATION Syncope SEIZURE M-Mode DIMENSIONS RVDd1.25 (2.1-3.2cm)Left Atrium (MM)2.93 (2.5-4.0cm) IVSd0.74 (0.7-1.1cm)Aortic Root3.28 (2.2-3.7cm) LVDd5.43 (4.0-5.6cm)Aortic Cusp Exc.1.52 (1.5-2.0cm) PWd0.74 (0.7-1.1cm)FS (%) 32 % LVDs3.67 (2.0-3.8cm)LVEF (%)60 (>50%) Aortic Valve AoV Peak Alybihvt013.8cm/Titus Peak GR.10mmHg Mitral Valve MV E Bndtivjf36.6cm/sMV A Rknlspam05.0cm/sE/A ratio1.1 TDI E/Lateral E'0.0E/Medial E'0.0 Tricuspid Valve TR Peak Xcdlsrxx976nt/sTR Peak Gr.27eyVaYMSA40svZi LEFT VENTRICLE The left ventricle is normal size. There is normal left ventricular wall thickness. The left ventricular function is normal. The left ventricular ejection fraction is within the normal range. No regional wall motion abnormalities noted. Transmitral Doppler flow pattern is Grade I-abnormal relaxation pattern. No left ventricle thrombus noted on this study. There is no ventricular septal defect visualized. There is no left ventricular aneurysm. There is no mass noted in the left ventricle. RIGHT VENTRICLE The right ventricle is normal size. There is normal right ventricular wall thickness. The right ventricular systolic function is normal. ATRIA The left atrium size is normal. The right atrium size is normal. The interatrial septum is intact with no evidence for an atrial septal defect. AORTIC VALVE The aortic valve is normal in structure and function. No aortic regurgitation is present. There is no aortic valvular stenosis. There is no aortic valvular vegetation. MITRAL VALVE The mitral valve is normal in structure and function. There is no evidence of mitral valve prolapse. There is no mitral valve stenosis. Mitral regurgitation is mild. TRICUSPID VALVE The tricuspid valve is normal in structure and function. There is mild tricuspid regurgitation. Right ventricular systolic pressure is estimated at 30-40 mmHg. There is no tricuspid valve prolapse or vegetation. There is no tricuspid valve stenosis. PULMONIC VALVE The pulmonary valve is normal in structure and function. There is no pulmonic valvular regurgitation. There is no pulmonic valvular stenosis. GREAT VESSELS The aortic root is normal in size. The ascending aorta is normal in size. The pulmonary artery is normal. The IVC is normal in size and collapses >50% with inspiration. PERICARDIAL EFFUSION The pericardium appears normal. There is no pleural effusion. <Conclusion> The left ventricular function is normal. The left ventricular ejection fraction is within the normal range. No regional wall motion abnormalities noted. Mitral regurgitation is mild. There is mild tricuspid regurgitation. Right ventricular systolic pressure is estimated at 30-40 mmHg.
--- NOTE | 2016-11-26 15:05 | VASCLAB ---
PROCEDURE: HISTORY: syncope COMPARISON: None available. TECHNIQUE: Grayscale and duplex Doppler evaluation of the cervical carotid and vertebral arteries were performed. The common carotid, carotid bifurcations and cervical Internal Carotid Artery (ICA) and proximal External Carotid Artery (ECA) were evaluated. The vertebral arteries were evaluated for gross patency and flow direction. Report prepared by Robe Sandoval, BS, RVT FINDINGS: RIGHT CAROTID ARTERIES: 1. Common Carotid Artery: No significant focal plaque formation of the right common carotid artery. Maximum Peak Systolic velocity: 75 cm/sec: End-diastolic velocity 19 cm/sec. 2. Carotid Bifurcation: Calcific plaque formation. Maximum Peak Systolic velocity: 70 cm/sec: End-diastolic velocity 16 cm/sec. 3. Internal Carotid Artery: Minimal plaque formation of the right proximal ICA which does not result in hemodynamically significant stenosis. Plaque description: Calcific 3.1. Proximal Segment: Peak systolic velocity 99 cm/sec: End-diastolic velocity 29 cm/sec - % stenosis 0-15% 3.2. Middle Segment: Peak systolic velocity 123 cm/sec: End-diastolic velocity 36 cm/sec - % stenosis 0-15% 3.3. Distal Segment: Peak systolic velocity 130 cm/sec: End-diastolic velocity 38 cm/sec - % stenosis 0-15% 4. External Carotid Artery: No significant focal plaque formation. Peak systolic velocity 115 cm/sec 5. ICA/CCA Ratio: 1.7 LEFT CAROTID ARTERIES: 1. Common Carotid Artery: No significant focal plaque formation of the left common carotid artery. Maximum Peak Systolic velocity: 91 cm/sec: End-diastolic velocity 22 cm/sec. 2. Carotid Bifurcation: Calcific plaque formation. Maximum Peak Systolic velocity: 75 cm/sec: End-diastolic velocity 14 cm/sec. 3. Internal Carotid Artery: Minimal plaque formation of the left proximal ICA which does not result in hemodynamically significant stenosis. Plaque description: 3.1. Proximal Segment: Peak systolic velocity 82 cm/sec: End-diastolic velocity 22 cm/sec - % stenosis 0-15% 3.2. Middle Segment: Peak systolic velocity 135 cm/sec: End-diastolic velocity 38 cm/sec - % stenosis 0-15% 3.3. Distal Segment: Peak systolic velocity 130 cm/sec: End-diastolic velocity 34 cm/sec - % stenosis 0-15% 4. External Carotid Artery: No significant focal plaque formation. Peak systolic velocity 116 cm/sec 5. ICA/CCA Ratio: 1.5 VERTEBRAL ARTERIES: 1. Right Vertebral Artery: The right vertebral artery flow direction is antegrade. 2. Left Vertebral Artery: The left vertebral artery flow direction is antegrade. OTHER FINDINGS: 1. Right Brachial Blood pressure: 132 mmHg. 2. Left Brachial Blood pressure: 126 mmHg. IMPRESSION: RIGHT: Duplex scan does not suggest hemodynamically significant stenosis of the right extracranial carotid arteries. LEFT: Duplex scan does not suggest hemodynamically significant stenosis of the left extracranial carotid arteries.
--- NOTE | 2016-11-27 04:40 | CP.PCM.PN ---
Subjective - Date & Time of Evaluation Date of Evaluation: 11/26/16 Objective - Vital Signs/Intake and Output Vital Signs (last 24 hours): Temp Pulse Resp BP Pulse Ox 97.6 F 58 L 20 129/75 99 11/26/16 23:35 11/27/16 03:49 11/26/16 23:35 11/26/16 23:35 11/26/16 23:35 - Medications Medications: Current Medications Acetaminophen (Tylenol 325mg Tab) 650 mg PO Q6 PRN PRN Reason: Headache Last Admin: 11/27/16 01:16 Dose: 650 mg Levetiracetam (Keppra) 500 mg PO BID [facility] Last Admin: 11/26/16 17:35 Dose: 500 mg Lisinopril (Zestril) 2.5 mg PO DAILY [facility] Last Admin: 11/26/16 10:09 Dose: 2.5 mg Multivitamins (Hexavitamin) 1 tab PO DAILY [facility] Last Admin: 11/26/16 10:09 Dose: 1 tab Phenytoin Sodium (Dilantin) 300 mg PO HS [facility] Last Admin: 11/26/16 21:23 Dose: 300 mg - Labs Labs: 11/25/16 07:27 11/25/16 07:27 PT 10.1 SECONDS (9.7-12.2) 11/24/16 15:14 INR 0.9 11/24/16 15:14 APTT 31 SECONDS (21-34) 11/24/16 15:14
[2016-11-27 08:29] VITALS: TEMP 97.5
[2016-11-27] MEDS: Multiple Vitamins Tab PO SCH (09:33)
--- NOTE | 2016-11-27 14:52 | CP.PCM.PN ---
Subjective - Date & Time of Evaluation Date of Evaluation: 11/27/16 Time of Evaluation: 11:00 - Subjective Subjective: Pt seen and examined today states feels better , c/o mild head ache , denies any chest pain, sob, blurred vision ]no overnight events reported by RN Objective - Vital Signs/Intake and Output Vital Signs (last 24 hours): Temp Pulse Resp BP Pulse Ox 97.5 F L 68 20 138/78 99 11/27/16 07:32 11/27/16 07:32 11/27/16 07:32 11/27/16 11:45 11/27/16 07:32 - Medications Medications: Current Medications Acetaminophen (Tylenol 325mg Tab) 650 mg PO Q6 PRN PRN Reason: Headache Last Admin: 11/27/16 01:16 Dose: 650 mg Levetiracetam (Keppra) 500 mg PO BID [facility] Last Admin: 11/27/16 09:32 Dose: 500 mg Lisinopril (Zestril) 2.5 mg PO DAILY [facility] Last Admin: 11/27/16 09:33 Dose: 2.5 mg Multivitamins (Hexavitamin) 1 tab PO DAILY [facility] Last Admin: 11/27/16 09:33 Dose: 1 tab Phenytoin Sodium (Dilantin) 300 mg PO HS [facility] Last Admin: 11/26/16 21:23 Dose: 300 mg - Labs Labs: 11/25/16 07:27 11/25/16 07:27 PT 10.1 SECONDS (9.7-12.2) 11/24/16 15:14 INR 0.9 11/24/16 15:14 APTT 31 SECONDS (21-34) 11/24/16 15:14 - Constitutional Appears: Well, No Acute Distress - Head Exam Additional comments: hermelinda to left kathi e of head - Respiratory Exam Respiratory Exam: Clear to Ausculation Bilateral, NORMAL BREATHING PATTERN - Cardiovascular Exam Cardiovascular Exam: REGULAR RHYTHM - Neurological Exam Neurological Exam: Alert, Awake, CN II-XII Intact, Oriented x3 Assessment and Plan - Assessment and Plan (Free Text) Assessment: A/P 71 YR old male admitted s/p fall . with sub dural hematoma
[2016-11-27 16:05] VITALS: BP 126/76; PULSE 74; O2SAT 98
--- NOTE | 2016-11-27 22:53 | CP.PCM.DIS ---
Provider - Provider Date of Admission: 11/24/16 15:56 Attending physician: Elmer Murdock MD Hospital Course - Lab Results Lab Results: Most Recent Lab Values WBC 6.3 K/uL (4.8-10.8) 11/25/16 07:27 RBC 4.30 Mil/uL (4.40-5.90) L 11/25/16 07:27 Hgb 12.9 g/dL (12.0-18.0) 11/25/16 07:27 Hct 38.3 % (35.0-51.0) 11/25/16 07:27 MCV 88.9 fL (80.0-94.0) 11/25/16 07:27 MCH 29.9 pg (27.0-31.0) 11/25/16 07:27 MCHC 33.6 g/dL (33.0-37.0) 11/25/16 07:27 RDW 14.7 % (11.5-14.5) H 11/25/16 07:27 Plt Count 223 K/uL (130-400) 11/25/16 07:27 MPV 7.5 fL (7.2-11.7) 11/25/16 07:27 Neut % (Auto) 76.8 % (50.0-75.0) H 11/24/16 15:14 Lymph % (Auto) 11.9 % (20.0-40.0) L 11/24/16 15:14 Dixie % (Auto) 8.0 % (0.0-10.0) 11/24/16 15:14 Eos % (Auto) 2.4 % (0.0-4.0) 11/24/16 15:14 Baso % (Auto) 0.9 % (0.0-2.0) 11/24/16 15:14 Neut # 5.3 K/uL (1.8-7.0) 11/24/16 15:14 Lymph # 0.8 K/uL (1.0-4.3) L 11/24/16 15:14 Dixie # 0.5 K/uL (0.0-0.8) 11/24/16 15:14 Eos # 0.2 K/uL (0.0-0.7) 11/24/16 15:14 Baso # 0.1 K/uL (0.0-0.2) 11/24/16 15:14 PT 10.1 SECONDS (9.7-12.2) 11/24/16 15:14 INR 0.9 11/24/16 15:14 APTT 31 SECONDS (21-34) 11/24/16 15:14 Sodium 137 mmol/L (132-148) 11/25/16 07:27 Potassium 4.1 mmol/L (3.6-5.2) 11/25/16 07:27 Chloride 99 mmol/L (98-107) 11/25/16 07:27 Carbon Dioxide 33 mmol/L (22-30) H 11/25/16 07:27 Anion Gap 9 (10-20) L 11/25/16 07:27 BUN 13 mg/dL (9-20) 11/25/16 07:27 Creatinine 0.9 MG/DL (0.8-1.5) 11/25/16 07:27 Est GFR ( Amer) > 60 11/25/16 07:27 Est GFR (Non-Af Amer) > 60 11/25/16 07:27 POC Glucose (mg/dL) 82 mg/dL (65-110) 11/27/16 11:58 Random Glucose 86 mg/dL (75-110) 11/25/16 07:27 Calcium 8.5 mg/dl (8.6-10.4) L 11/25/16 07:27 Total Bilirubin 0.6 mg/dL (0.2-1.3) 11/25/16 07:27 AST 24 U/L (17-59) 11/25/16 07:27 ALT 23 U/L (21-72) 11/25/16 07:27 Alkaline Phosphatase 113 U/L (38-126) 11/25/16 07:27 Total Creatine Kinase 119 U/L (55-170) 11/24/16 15:14 CK-MB (Mass) 3.97 ng/mL (0.0-3.38) H 11/24/16 15:14 Troponin I 0.0130 ng/mL (0.00-0.120) 11/24/16 15:14 Total Protein 6.2 g/dL (6.3-8.3) L 11/25/16 07:27 Albumin 3.6 g/dL (3.5-5.0) 11/25/16 07:27 Globulin 2.6 gm/dL (2.2-3.9) 11/25/16 07:27 Albumin/Globulin Ratio 1.4 (1.0-2.1) 11/25/16 07:27 Urine Color Yellow (YELLOW) 11/24/16 16:02 Urine Clarity Clear (Clear) 11/24/16 16:02 Urine pH 7.0 (5.0-8.0) 11/24/16 16:02 Ur Specific [employer] 1.010 (1.003-1.030) 11/24/16 16:02 Urine Protein Negative mg/dL (NEGATIVE) 11/24/16 16:02 Urine Glucose (UA) Normal mg/dL (Normal) 11/24/16 16:02 Urine Ketones Negative mg/dL (NEGATIVE) 11/24/16 16:02 Urine Blood Negative (NEGATIVE) 11/24/16 16:02 Urine Nitrate Negative (NEGATIVE) 11/24/16 16:02 Urine Bilirubin Negative (NEGATIVE) 11/24/16 16:02 Urine Urobilinogen Normal mg/dL (0.2-1.0) 11/24/16 16:02 Ur Leukocyte Esterase Neg Amelia/uL (Negative) 11/24/16 16:02 Urine WBC (Auto) < 1 /hpf (0-5) 11/24/16 16:02 Urine RBC (Auto) < 1 /hpf (0-3) 11/24/16 16:02 Ur Squamous Epith Cells < 1 /hpf (0-5) 11/24/16 16:02 Urine Bacteria Rare (<OCC) 11/24/16 16:02 Urine Opiates Screen Negative (NEGATIVE) 11/24/16 23:50 Urine Methadone Screen Negative (NEGATIVE) 11/24/16 23:50 Ur Barbiturates Screen Negative (NEGATIVE) 11/24/16 23:50 Phenytoin 18.7 ug/mL (10-20) 11/25/16 07:27 Ur Phencyclidine Scrn Negative (NEGATIVE) 11/24/16 23:50 Ur Amphetamines Screen Negative (NEGATIVE) 11/24/16 23:50 U Benzodiazepines Scrn Negative (NEGATIVE) 11/24/16 23:50 U Oth Cocaine Metabols Negative (NEGATIVE) 11/24/16 23:50 U Cannabinoids Screen Negative (NEGATIVE) 11/24/16 23:50 - Hospital Course Hospital Course: Pt seen and examined today states feels better , c/o mild head ache , denies any chest pain, sob, blurred vision ]no overnight events reported by RN , pt is for discharge today Discharge Exam - Head Exam Head Exam: ATRAUMATIC, NORMAL INSPECTION, NORMOCEPHALIC - Eye Exam Eye Exam: EOMI, Normal appearance, PERRL Pupil Exam: NORMAL ACCOMODATION, PERRL - ENT Exam ENT Exam: Mucous Membranes Moist - Respiratory Exam Respiratory Exam: Clear to PA & Lateral, NORMAL BREATHING PATTERN - Cardiovascular Exam Cardiovascular Exam: REGULAR RHYTHM, +S1, +S2 - GI/Abdominal Exam GI & Abdominal Exam: Normal Bowel Sounds Discharge Plan - Follow Up Plan Condition: STABLE Disposition: REHAB FACILITY/REHAB UNIT Instructions: Subdural Hematoma (DC), Recurrent Seizures in Adults (DC) Additional Instructions: Please admit pat under Dr. Murdock service - call Dr. Murdock upon patient arrival tot facility continue medication as per Med. REc. Referrals: Elmer Murdock MD [Staff Provider] -
== END 2016-11-27 16:20 | DRG 83 ==
LOC: C.ER 14:02 → C.9E 15:56 → C.6T 19:22
PROVIDERS: ADMIT Internal Medicine; ATTEND Internal Medicine
PROC: 0HQ0XZZ Repair Scalp Skin, External Approach (ICD-10-PCS; principal; 2016-11-24)
DX: S06.5X9A Traumatic subdural hemorrhage with loss of consciousness of unspecified duration, initial encounter (principal); F05 Delirium due to known physiological condition; G40.409 Other generalized epilepsy and epileptic syndromes, not intractable, without status epilepticus; F03.90 Unspecified dementia, unspecified severity, without behavioral disturbance, psychotic disturbance, mood disturbance, and anxiety; I10 Essential (primary) hypertension; R29.6 Repeated falls; S01.01XA Laceration without foreign body of scalp, initial encounter; W19.XXXA Unspecified fall, initial encounter; M19.90 Unspecified osteoarthritis, unspecified site; Y99.9 Unspecified external cause status; Z86.61 Personal history of infections of the central nervous system; Z87.891 Personal history of nicotine dependence

== ENCOUNTER 2017-01-16 12:16 | Inpatient (IN) | payer MEDICARE, MEDICAID ==
[2017-01-16 12:17] VITALS: BMI 26.6
--- NOTE | 2017-01-16 12:51 | CT ---
PROCEDURE: CT HEAD WITHOUT CONTRAST. HISTORY: Code Stroke COMPARISON: None available. TECHNIQUE: Axial computed tomography images were obtained through the head/brain without intravenous contrast. Radiation dose: Total exam DLP = 1008 mGy-cm. This CT exam was performed using one or more of the following dose reduction techniques: Automated exposure control, adjustment of the mA and/or kV according to patient size, and/or use of iterative reconstruction technique. FINDINGS: HEMORRHAGE: Bilateral small convexity subdural hematomas are appreciated 6 mm greatest thickness at the right and 4 mm at the left. There is also a falcine subdural hematoma identified at the posterior falx extending inferiorly into the right along the superior left side of the tentorium. It tentorial subdural measures approximately 1 cm. No midline shift is identified and there is questionable limited loss of the bilateral frontal sulci. No intraparenchymal hemorrhage identified and there is no accompanying fracture of the calvarium of the skull base. Posterior fossa contents and brainstem appear normal. Instill abusive parent sinuses orbits and skullbase are remarkable only for bilateral sphenoid sinusitis. Vascular calcification identified in the cavernous internal carotid artery segments bilaterally. Diffuse cerebral atrophy chronic microangiopathy appear stable. BRAIN: Discussed above VENTRICLES: No hydrocephalus identified. CALVARIUM: Unremarkable. PARANASAL SINUSES: Sinusitis changes discussed above. MASTOID AIR CELLS: Unremarkable as visualized. No inflammatory changes. OTHER FINDINGS: None. IMPRESSION: Very mild bilateral convexity subdural hematomas are identified as well as prior fall seen extending to the left tentorium superiorly as discussed above. Limited local mass effect effaces the bilateral frontal sulci minimally. No intraparenchymal hemorrhage. No cortical edema to suggest acute or subacute brain infarction this time. MRI may be useful for follow-up or CT. Findings discussed with Dr. Arechiga by telephone 01/08/2017 12:42 p.m..
[2017-01-16 12:59] LABS: BASO % 0.4 % (0.0-2.0); EOS # 0.1 K/uL (0.0-0.7); EOS % 1.4 % (0.0-4.0); HEMOGLOBIN 12.4 g/dL (12.0-18.0); LYMPH # 0.7 K/uL (1.0-4.3); LYMPH % 10.5 % (20.0-40.0); MEAN CELL VOLUME 88.1 fL (80.0-94.0); MEAN CORPUSCULAR HEMOGLOBIN 29.6 pg (27.0-31.0); MEAN CORPUSCULAR HGB CONC 33.7 g/dL (33.0-37.0); MEAN PLATELET VOLUME 7.5 fL (7.2-11.7); MONO # 0.6 K/uL (0.0-0.8); MONO % 8.2 % (0.0-10.0); NEUT # 5.6 K/uL (1.8-7.0); NEUT % 79.5 % (50.0-75.0); RBC 4.19 Mil/uL (4.40-5.90); RED CELL DISTRIBUTION WIDTH 13.9 % (11.5-14.5)
--- NOTE | 2017-01-16 13:03 | C.PDOC ---
History Of Present Illness 71 y/o male, with PMHx of seizures, and subdural hematoma, is brought to the ED via ALS for evaluation of left sided weakness which has now resolved. As per ALS , patient was walking on the streets when he suddenly collapsed. Pt recalls falling down, and complains of mild headache. Pt was evaluated here multiple times in the past for seizures. Otherwise, denies any tongue biting, urine incontinence, or any other associated symptoms at this time. Time Seen by Provider: 01/16/17 12:18 Chief Complaint (Nursing): Weakness/Neurological Deficit History Per: EMS History/Exam Limitations: no limitations Onset/Duration Of Symptoms: Hrs Current Symptoms Are (Timing): Still Present Recent travel outside of the [place]: No Additional History Per: EMS Past Medical History Reviewed: Historical Data, Nursing Documentation, Vital Signs Vital Signs: Last Vital Signs Temp 98.2 F 01/17/17 08:00 Pulse 58 L 01/17/17 08:58 Resp 13 01/17/17 08:58 BP 105/57 L 01/17/17 08:58 Pulse Ox 100 01/17/17 11:06 - Medical History PMH: Arthritis, HTN, Seizures Denies: Chronic Kidney Disease - [facility] Procedures CLOSED ENDOSCOPIC BIOPSY OF LARGE INTESTINE (01/20/13) ESOPHAGOGASTRODUODENOSCOPY [EGD] W/CLOSED BIOPSY (01/20/13) REPAIR SCALP SKIN, EXTERNAL APPROACH (11/24/16) Family History: States: Unknown Family Hx - Social History Hx Tobacco Use: No Hx Alcohol Use: No Hx Substance Use: No - Immunization History Hx Tetanus Toxoid Vaccination: Yes Hx Influenza Vaccination: Yes Hx Pneumococcal Vaccination: No Review Of Systems Except As Marked, All Systems Reviewed And Found Negative. Constitutional: Negative for: Fever, Chills Cardiovascular: Negative for: Chest Pain Genitourinary: Negative for: Incontinence Neurological: Positive for: Weakness (left sided ), Headache (mild) Physical Exam - Physical Exam Appears: Non-toxic, No Acute Distress, Chronically Ill Skin: Normal Color, Warm, Dry Head: Normacephalic, Laceration (1cm of laceration to posterior occipital scalp) Eye(s): bilateral: Normal Inspection, EOMI Neck: Normal ROM, Supple Chest: Symmetrical Cardiovascular: Rhythm Regular, No Murmur Respiratory: Normal Breath Sounds, No Rales, No Rhonchi, No Wheezing Neurological/Psych: Oriented x3 ED Course And Treatment - Laboratory Results Result Diagrams: 01/17/17 06:34 01/17/17 06:34 ECG: Interpreted By Me, Viewed By Me ECG Rhythm: Sinus Rhythm ECG Interpretation: No Acute Changes Interpretation Of ECG: LVH. Rate From EC (bpm) O2 Sat by Pulse Oximetry: 100 (RA) Pulse Ox Interpretation: Normal - CT Scan/US Head CT Other Rad Studies (CT/US): Read By Radiologist, Radiology Report Reviewed CT/US Interpretation: FINDINGS: HEMORRHAGE: Bilateral small convexity subdural hematomas are appreciated 6 mm greatest thickness at the right and 4 mm at the left. There is also a falcine subdural hematoma identified at the posterior falx extending inferiorly into the right along the superior left side of the tentorium. It tentorial subdural measures approximately 1 cm. No midline shift is identified and there is questionable limited loss of the bilateral frontal sulci. No intraparenchymal hemorrhage identified and there is no accompanying fracture of the calvarium of the skull base. Posterior fossa contents and brainstem appear normal. Instill abusive parent sinuses orbits and skullbase are remarkable only for bilateral sphenoid sinusitis. Vascular calcification identified in the cavernous internal carotid artery segments bilaterally. Diffuse cerebral atrophy chronic microangiopathy appear stable. BRAIN: Discussed above. VENTRICLES: No hydrocephalus identified. CALVARIUM: Unremarkable. PARANASAL SINUSES: Sinusitis changes discussed above. MASTOID AIR CELLS: Unremarkable as visualized. No inflammatory changes. OTHER FINDINGS: None. IMPRESSION: Very mild bilateral convexity subdural hematomas are identified as well as prior fall seen extending to the left tentorium superiorly as discussed above. Limited local mass effect effaces the bilateral frontal sulci minimally. No intraparenchymal hemorrhage. No cortical edema to suggest acute or subacute brain infarction this time. MRI may be useful for follow-up or CT. Findings discussed with Dr. Arechiga by telephone 01/08/2017 12 :42 p.m.. Critical Care Time - Critical Care Note Total Time (in mins): 45 Documented critical care: time excludes all time spent performing seperately billable procedures. Laceration - Laceration Repair No standard instances Wound Length (In cm): 2 Description Of Wound: Linear Wound Cleansed With: Sterile Saline Anesthesia: Lidocaine 1%, With Epi Wound Examination: Irrigated With Saline Wound Closure: [place] (4) Wound Complexity: Simple NIHSS Stroke Scale - Date/Time Evaluation Performed Date Performed: 01/16/17 Time Performed: 19:00 - How Severe is the Stoke Level of Consciousness: 0=Alert LOC to Questions: 0=Both comments correct LOC to commands: 0=Obeys both correctly Best Gaze: 0=Normal Visual: 0=No visual loss Facial: 0=Normal Motor Arm - Left: 0=No drift Motor Arm - Right: 0=No drift Motor Leg - Left: 0=No drift Motor Leg - Right: 0=No drift Limb Ataxia: 0=Absent Sensory: 0=Normal Best Language: 0=No aphasia Dysarthia: 0=Normal articulation Extinction & Inattention (Neglect): 0=Normal, no object Score: 0 Severity Of Stroke: 0= No Stroke rTPA Inclusion/Exclusion - Refusal of Treatment Patient Refused Treatment: No - Inclusion Criteria for Altepase Patient is 18 years or Older: Yes The Clinical Diagnosis of Ischemic Stroke That is Causing a Potentially Disabling Neurological Deficit: No Time of Onset is Well Established to be Less Than 270 Minute Before Treatment Would Begin: Yes Risk/Benefit Discussed With Patient/Family Member Present: No - Exclusion Criteria for Altepase Active Internal Bleeding: Yes Medical Decision Making Medical Decision Making: code stroke, neuro intact on arrival. - ct shows subdural EKG, CXR, head CT, blood work, urinalysis ordered and reviewed. received call from radiology, for new subdurals. case discussed with dr maria , advises no operative intervention. updated dr guzman, dr dobson accepts icu , dr stoner accepts. no anticoagulant use, pt remains awake, alert neuro intact in er Disposition - Disposition Disposition: HOSPITALIZED Disposition Time: 01:00 Condition: CRITICAL - Clinical Impression Clinical Impression: Subdural hematoma - Scribe Statement The provider has reviewed the documentation as recorded by the Scribe Shelton Landa All medical record entries made by the Amandaibe were at my direction and personally dictated by me. I have reviewed the chart and agree that the record accurately reflects my personal performance of the history, physical exam, medical decision making, and the department course for this patient. I have also personally directed, reviewed, and agree with the discharge instructions and disposition.
[2017-01-16 13:04] LABS: ALBUMIN 3.7 g/dL (3.5-5.0); PROTHROMBIN TIME 10.6 SECONDS (9.7-12.2)
[2017-01-16 13:07] LABS: ALB/GLOB RATIO 1.4 (1.0-2.1); AST/SGOT 32 U/L (17-59); BLOOD UREA NITROGEN 14 mg/dL (9-20); GFR AFRICAN-AMERICAN > 60; GFR NON-AFRICAN AMERICAN > 60
[2017-01-16 13:08] LABS: ALT/SGPT 27 U/L (21-72); CALCIUM 8.4 mg/dl (8.6-10.4); HDL CHOLESTEROL 62 mg/dL (30-70)
--- NOTE | 2017-01-16 13:17 | RAD ---
HISTORY: Code stroke protocol. Portable study 12:55 COMPARISON: 09/20/2015 FINDINGS: LUNGS: No active pulmonary disease. Stable, chronic interstitial lung disease. PLEURA: No significant pleural effusion identified, no pneumothorax apparent. CARDIOVASCULAR: No radiographic findings to suggest acute or significant cardiovascular disease. OSSEOUS STRUCTURES: No significant abnormalities. VISUALIZED UPPER ABDOMEN: Normal. OTHER FINDINGS: None. IMPRESSION: No active disease. No significant interval change compared to the prior examination(s).
[2017-01-16] MEDS ORDERED: Lidocaine 2% w Epi 1:100,000 Inj IJ ONE (13:18)
[2017-01-16 13:19] LABS: LDL CHOLESTEROL 76 mg/dL (0-129)
[2017-01-16] MEDS ORDERED: Lidocaine 1%/Epinephrine 1:100000 30 ml vial IJ STA (13:19)
[2017-01-16] MEDS ORDERED: levETIRAcetam 1,000 MG in Sodium Chloride 0.9% 100 ML IVPB STA (16:44)
[2017-01-16 17:38] LABS: SQUAMOUS EPITHIAL < 1 /hpf (0-5); URINE BACTERIA FEW (<OCC); URINE BILIRUBIN NEGATIVE (NEGATIVE); URINE BLOOD NEGATIVE (NEGATIVE); URINE CLARITY Hazy (Clear); URINE COLOR Yellow (YELLOW); URINE GLUCOSE (UA) NORMAL (Normal); URINE LEUKOCYTE ESTERASE NEG Leu/uL (Negative); URINE NITRATE NEGATIVE (NEGATIVE); URINE PROTEIN 1+ mg/dL (NEGATIVE)
--- NOTE | 2017-01-16 17:39 | CP.PCM.CON ---
<Jabari Tanssyca KaneJameel - Last Filed: 01/16/17 18:46> History of Present Illness - History of Present Illness History of Present Illness: 71 year old male with past medical history of meningitis, epilepsy who presented to the ED by ambulance [place]. Patient was admitted to the ICU where he was seen and examined at bedside. Patient states he does not recall the fall and just remembers waking up in the hospital. Patient states he had a similar episode about 2-3 months ago where he fell but does not recall the incident. He states that he did follow up with his primary physician who changed his dose of Dilantin. Patient states he did feel a bit dizzy right before falling but does not recall anything else. Per nurse patient's sister in law states the patient has been drinking and not taking his seizure medication. The patient denies alcohol use. PMD: Dr. Murdock Medical History: Meningitis, epilepsy, cataracts Surgical History: Left shoulder surgery Medications: Dilantin and Keppra Allergies: NKDA Social: Lives with sister in law, quit smoking 8 years ago and used to smoke 2 packs per day for many years, denies alcohol and drug use. Review of Systems - Constitutional Constitutional: absent: Fever - EENT Eyes: absent: Blurred Vision Ears: absent: Decreased Hearing - Cardiovascular Cardiovascular: absent: Chest Pain, Dyspnea, Lightheadedness, Palpitations - Respiratory Respiratory: absent: Dyspnea - Gastrointestinal Gastrointestinal: Nausea, Vomiting. absent: Constipation, Diarrhea - Genitourinary Genitourinary: absent: Dysuria - Musculoskeletal Musculoskeletal: Tingling (Right Left lower Extremity calf ) - Neurological Neurological: absent: Dizziness, Headaches Past Patient History - Infectious Disease Hx of Infectious Diseases: None - Past Medical History & Family History Past Medical History?: Yes - Past Social History Smoking Status: Former Smoker - CARDIAC Hx Hypertension: Yes - PULMONARY Hx Respiratory Disorders: No - NEUROLOGICAL Hx Seizures: Yes - HEENT Hx HEENT Problems: Yes Other/Comment: glasses for reading - RENAL Hx Chronic Kidney Disease: No - ENDOCRINE/METABOLIC Hx Endocrine Disorders: No - HEMATOLOGICAL/ONCOLOGICAL Hx Blood Disorders: No - INTEGUMENTARY Hx Dermatological Problems: No - MUSCULOSKELETAL/RHEUMATOLOGICAL Hx Falls: Yes - GASTROINTESTINAL Hx Gastrointestinal Disorders: No - GENITOURINARY/GYNECOLOGICAL Hx Genitourinary Disorders: No - PSYCHIATRIC Hx Substance Use: No - SURGICAL HISTORY Hx Surgeries: Yes Hx Orthopedic Surgery: Yes (LEFT SHOULDER) - ANESTHESIA Hx Anesthesia: Yes Hx Anesthesia Reactions: No Hx Malignant Hyperthermia: No Meds Allergies/Adverse Reactions: Allergies Allergy/AdvReac Type Severity Reaction Status Date / Time No Known Allergies Allergy Verified 01/16/17 12:32 - Medications Medications: Current Medications Levetiracetam 1,000 mg/ Sodium (Chloride) 110 mls @ 420 mls/hr IVPB Q12 SEBAS Sodium Chloride (Sodium Chloride 0.9%) 1,000 mls @ 60 mls/hr IV .[id number] SEBAS Pantoprazole Sodium (Protonix Inj) 40 mg IVP DAILY SEBAS Physical Exam - Constitutional Appears: Well, No Acute Distress - Head Exam Head Exam: ATRAUMATIC, NORMAL INSPECTION - Eye Exam Eye Exam: EOMI, Normal appearance, PERRL Pupil Exam: NORMAL ACCOMODATION - Respiratory Exam Respiratory Exam: Clear to Auscultation Bilateral, NORMAL BREATHING PATTERN - Cardiovascular Exam Cardiovascular Exam: REGULAR RHYTHM, RRR, +S1, +S2. absent: JVD - GI/Abdominal Exam GI & Abdominal Exam: Normal Bowel Sounds, Soft. absent: Tenderness - Neurological Exam Neurological exam: Alert, CN II-XII Intact, Oriented x3, Reflexes Normal - Expanded Neurological Exam Expanded Patient oriented to: person, place, time Upper motor neuron: Babinski Sign: Normal Sensory exam: Lower Extremity Light Touch: Normal, Upper Extremity Light Touch: Normal Neuro motor strength exam: Left Upper Extremity: 5, Right Upper Extremity: 5, Left Lower Extremity: 5, Right Lower Extremity: 3 (secondary to pain ) Coma Scale Eye Opening: SPONTANEOUS Coma Scale Motor Response: OBEYS COMMANDS Coma Scale Verbal: Oriented Coma Scale Total: 15 - Psychiatric Exam Psychiatric exam: Normal Affect, Normal Mood - Skin Skin Exam: Dry, Intact, Normal Color, Warm Results - Vital Signs Recent Vital Signs: Last Vital Signs Temp 98.4 F 01/16/17 16:00 Pulse 74 01/16/17 16:50 Resp 16 01/16/17 16:50 BP 135/72 01/16/17 16:46 Pulse Ox 98 01/16/17 16:50 - Labs Result Diagrams: 01/16/17 12:50 01/16/17 12:50 Assessment & Plan (1) Subdural hemorrhage Assessment and Plan: 71 year old male with past medical history of meningitis, epilepsy who presented to the ED by ambulance [place] the [place]. Neuro: Alert and Oriented x3 Cranial Nerves intact no deficit on exam CT of head showed subdural hematomas f/u with repeat head CT w/o contrast Keppra 1000mg BID Neurology Consult: Dr. Robertson --> help appreciated Possible Alcohol withdrawal - sister in law states patient has been drinking although patient denies - Monitor - f/u Venous doppler secondary to right calf tenderness Pulm: No acute issues CV: No acute issues Heme: No acute issues Renal: No acute issues Replenished K+ GI: f/u swallow evaluation ID: No acute issues DVT proph - SCDs contraindication due to calf tenderness; VTE contraindication secondary to subdural GI Proph: Pepcid 20mg IVP Daily Code Status: full code Case discussed with Dr. Karissa Tan PGY-1 Status: Acute Priority: High <Adam Hancock - Last Filed: 01/16/17 19:09> Meds - Medications Medications: Current Medications Famotidine (Pepcid) 20 mg IVP Q12 SEBAS Levetiracetam 1,000 mg/ Sodium (Chloride) 110 mls @ 420 mls/hr IVPB Q12 SEBAS Sodium Chloride (Sodium Chloride 0.9%) 1,000 mls @ 60 mls/hr IV .[id number] SEBAS Last Admin: 01/16/17 17:48 Dose: 60 mls/hr Potassium Chloride (Potassium Chloride 10 Meq/100 Ml) 10 meq in 100 mls @ 100 mls/hr IVPB ONCE ONE Stop: 01/16/17 19:53 Last Admin: 01/16/17 18:59 Dose: 100 mls/hr Results - Vital Signs Recent Vital Signs: Last Vital Signs Temp 98.4 F 01/16/17 16:00 Pulse 62 01/16/17 18:50 Resp 15 01/16/17 18:50 BP 154/61 H 01/16/17 18:46 Pulse Ox 100 01/16/17 18:50 - Labs Result Diagrams: 01/16/17 12:50 01/16/17 12:50 Labs: Laboratory Results - last 24 hr 01/16/17 17:20 Urine Color Yellow Urine Clarity Hazy Urine pH 8.0 Ur Specific Ada 1.023 Urine Protein 1+ H Urine Glucose (UA) Normal Urine Ketones Negative Urine Blood Negative Urine Nitrate Negative Urine Bilirubin Negative Urine Urobilinogen 2.0 Ur Leukocyte Esterase Neg Urine WBC (Auto) 2 Urine RBC (Auto) 2 Ur Squamous Epith Cells < 1 Urine Bacteria Few H Attending/Attestation - Attestation I have personally seen and examined this patient.: Yes I have fully participated in the care of the patient.: Yes I have reviewed all pertinent clinical information: Yes Notes (Text): 01/16/17 19:08 I have seen and examined the patient. Medical records, lab studies, and imaging were reviewed by me and a management plan was formulated on multidisciplinary rounds with resident Dr. Tan. I agree with their above documented assessment and plan. Patient was subtherapeutic secondary to non-compliance because of ETOH abuse. Small traumatic SDH, Repeat head ct in am. Neurology consulted. Keppra dose increased, hopefully maintain patient on one med to improve compliance. Will monitor for withdrawal symptoms. Critical Care Time 35 minutes. Multi-disciplinary rounds were performed with house staff, nursing, speech therapy, respiratory therapy, pharmacy and nutrition with integrated input from the primary team/attending and other consulting services. The documented time is cumulative and includes review of patient data/exams/labs/chart review and examination of the patient on rounds and throughout the day; time is exclusive of any procedures or teaching time.
[2017-01-16] MEDS: Sodium Chloride 0.9% 1,000 ML IV SCH (17:48)
[2017-01-16] MEDS ORDERED: Potassium Chloride 10 mEq ER Tab PO ONE ×2 (18:52)
[2017-01-16 19:08] LABS: MAGNESIUM 1.8 mg/dL (1.6-2.3)
[2017-01-16] MEDS ORDERED: Phytonadione 10 mg/ml Inj (Adult) IV STA (20:37)
[2017-01-16] MEDS: levETIRAcetam 1,000 MG in Sodium Chloride 0.9% 100 ML IVPB SCH (21:42)
--- NOTE | 2017-01-16 23:59 | CP.PCM.HP ---
History of Present Illness - History of Present Illness History of Present Illness: 71 year old male with past medical history of meningitis, epilepsy who presented to the ED by ambulance [place]. Patient was admitted to the ICU where he was seen and examined at bedside. Patient states he does not recall the fall and just remembers waking up in the hospital. Patient states he had a similar episode about 2-3 months ago where he fell but does not recall the incident. He states that he did follow up with his primary physician who changed his dose of Dilantin. Patient states he did feel a bit dizzy right before falling but does not recall anything else. Per nurse patient's sister in law states the patient has been drinking and not taking his seizure medication. The patient denies alcohol use. PMD: Dr. Murdock Medical History: Meningitis, epilepsy, cataracts Surgical History: Left shoulder surgery Medications: Dilantin and Keppra Allergies: NKDA Social: Lives with sister in law, quit smoking 8 years ago and used to smoke 2 packs per day for many years, denies alcohol and drug use. Present on Admission - Present on Admission Any Indicators Present on Admission: Yes Review of Systems - Review of Systems Systems not reviewed;Unavailable: Altered Mental Status, Intoxicated - Constitutional Constitutional: Fatigue, Lethargy, Malaise - EENT Eyes: absent: As Per HPI, Blind Spots, Blurred Vision, Change in Vision, Decreased Night Vision, Diplopia, Discharge, Dry Eye, Exophthalmos, Floaters, Irritation, Itchy Eyes, Loss of Peripheral Vision, Pain, Photophobia, Requires Corrective Lenses, Sees Flashes, Spots in Vision, Tunnel Vision, Other Visual Disturbances, Loss of Vision, Other Nose/Mouth/Throat: absent: As Per HPI, Epistaxis, Nasal Congestion, Nasal Discharge, Nasal Obstruction, Nasal Trauma, Nose Pain, Post Nasal Drip, Sinus Pain, Sinus Pressure, Bleeding Gums, Change in Voice, Dental Pain, Dry Mouth, Dysphagia, Halitosis, Hoarsness, Lip Swelling, Mouth Lesions, Mouth Pain, Odynophagia, Sore Throat, Throat Swelling, Tongue Swelling, Facial Pain, Neck Pain, Neck Mass, Other - Cardiovascular Cardiovascular: absent: As Per HPI, Acrocyanosis, Chest Pain, Chest Pain at Rest , Chest Pain with Activity, Claudication, Diaphoresis, Dyspnea, Dyspnea on Exertion, Edema, Irregular Heart Rhythm, Pain Radiating to Arm/Neck/Jaw, Leg Edema, Leg Ulcers, Lightheadedness, Orthopnea, Palpitations, Paroxysmal Nocturnal Dyspnea, Pedal Edema, Radiating Pain, Rapid Heart Rate, Slow Heart Rate, Syncope, Other - Gastrointestinal Gastrointestinal: absent: As Per HPI, Abdominal Pain, Belching, Bloating, Change in Bowel Habits, Change in Stool Character, Coffee Ground Emesis, Constipation, Cramping, Diarrhea, Dyspepsia, Dysphagia, Early Satiety, Excessive Flatus, Fecal Incontinence, Heartburn, Hematemesis, Hematochezia, Loose Stools, Melena, Nausea, Odynophagia, Temesmus, Vomiting, Other - Genitourinary Genitourinary: absent: As Per HPI, Change in Urinary Stream, Difficulty Urinating, Dysuria, Flank Pain, Hematuria, Pyuria, Nocturia, Urinary Incontinence, Urinary Frequency, Urinary Hesitance, Urinary Urgency, Voiding Freq/Small Amts, Freq UTI, Hx Renal/Bladder Calculi, Hx /Renal Surgery, Bladder Distension, Other - Musculoskeletal Musculoskeletal: Abnormal Gait, Back Pain, Myalgias, Numbness, Stiffness, Tingling - Neurological Neurological: Dizziness, Syncope - Psychiatric Psychiatric: Confusion - Endocrine Endocrine: absent: As Per HPI, Change in Body Appearance, Change in Libido, Cold Intolorance, Deepening of Voice, Excessive Sweating, Fatigue, Flushing, Heat Intolorance, Increase in Ring/Shoe/Hat Size, Palpitations, Polydipsia, Polyphagia, Polyuria, Other Past Patient History - Infectious Disease Hx of Infectious Diseases: None - Past Medical History & Family History Past Medical History?: Yes - Past Social History Smoking Status: Former Smoker - CARDIAC Hx Hypertension: Yes - PULMONARY Hx Respiratory Disorders: No - NEUROLOGICAL Hx Seizures: Yes - HEENT Hx HEENT Problems: Yes Other/Comment: glasses for reading - RENAL Hx Chronic Kidney Disease: No - ENDOCRINE/METABOLIC Hx Endocrine Disorders: No - HEMATOLOGICAL/ONCOLOGICAL Hx Blood Disorders: No - INTEGUMENTARY Hx Dermatological Problems: No - MUSCULOSKELETAL/RHEUMATOLOGICAL Hx Falls: Yes - GASTROINTESTINAL Hx Gastrointestinal Disorders: No - GENITOURINARY/GYNECOLOGICAL Hx Genitourinary Disorders: No - PSYCHIATRIC Hx Substance Use: No - SURGICAL HISTORY Hx Surgeries: Yes Hx Orthopedic Surgery: Yes (LEFT SHOULDER) - ANESTHESIA Hx Anesthesia: Yes Hx Anesthesia Reactions: No Hx Malignant Hyperthermia: No Meds Allergies/Adverse Reactions: Allergies Allergy/AdvReac Type Severity Reaction Status Date / Time No Known Allergies Allergy Verified 01/16/17 12:32 Results - Vital Signs Recent Vital Signs: Last Vital Signs Temp 99.1 F 01/16/17 20:00 Pulse 68 01/16/17 23:30 Resp 12 01/16/17 23:30 BP 125/60 01/16/17 22:46 Pulse Ox 98 01/16/17 23:30 - Labs Result Diagrams: 01/17/17 06:34 01/17/17 06:34 Labs: Laboratory Results - last 24 hr 01/16/17 01/16/17 17:20 18:56 Phosphorus 2.7 Magnesium 1.8 Urine Color Yellow Urine Clarity Hazy Urine pH 8.0 Ur Specific [place] 1.023 Urine Protein 1+ H Urine Glucose (UA) Normal Urine Ketones Negative Urine Blood Negative Urine Nitrate Negative Urine Bilirubin Negative Urine Urobilinogen 2.0 Ur Leukocyte Esterase Neg Urine WBC (Auto) 2 Urine RBC (Auto) 2 Ur Squamous Epith Cells < 1 Urine Bacteria Few H Assessment & Plan (1) CVA (cerebral vascular accident) Status: Acute (2) Subdural hematoma Status: Acute (3) Head injury Status: Acute
[2017-01-17 06:47] LABS: BASO % 0.3 % (0.0-2.0); EOS # 0.1 K/uL (0.0-0.7); EOS % 1.7 % (0.0-4.0); HEMOGLOBIN 11.3 g/dL (12.0-18.0); LYMPH # 0.7 K/uL (1.0-4.3); LYMPH % 11.5 % (20.0-40.0); MEAN CELL VOLUME 88.3 fL (80.0-94.0); MEAN CORPUSCULAR HEMOGLOBIN 29.5 pg (27.0-31.0); MEAN CORPUSCULAR HGB CONC 33.4 g/dL (33.0-37.0); MEAN PLATELET VOLUME 8.5 fL (7.2-11.7); MONO # 0.6 K/uL (0.0-0.8); MONO % 9.8 % (0.0-10.0); NEUT # 4.6 K/uL (1.8-7.0); NEUT % 76.7 % (50.0-75.0); NRBC % 0.1 % (0.0-2.0); RBC 3.82 Mil/uL (4.40-5.90); RED CELL DISTRIBUTION WIDTH 13.5 % (11.5-14.5); WHITE BLOOD COUNT 5.9 K/uL (4.8-10.8)
[2017-01-17 06:58] LABS: ALBUMIN 2.9 g/dL (3.5-5.0)
[2017-01-17 07:01] LABS: ALB/GLOB RATIO 1.2 (1.0-2.1); AST/SGOT 35 U/L (17-59); GFR AFRICAN-AMERICAN > 60; GFR NON-AFRICAN AMERICAN > 60
[2017-01-17 07:02] LABS: ALT/SGPT 25 U/L (21-72); BLOOD UREA NITROGEN 14 mg/dL (9-20); CALCIUM 7.7 mg/dl (8.6-10.4); MAGNESIUM 1.9 mg/dL (1.6-2.3)
--- NOTE | 2017-01-17 07:48 | CON ---
DATE: ATTENDING PHYSICIAN: Elmer Murdock MD LOCATION: The patient's room number is ICU, bed 3. REASON FOR CONSULTATION: Abnormal CAT scan. CHIEF COMPLAINT: The patient was brought in by EMT with history change in mental status.. [place]. The emergency room CAT scan showed subdural hematoma from neurologic point of view. I was called in to evaluate him for further management. HISTORY OF PRESENT ILLNESS: Mr. Abdiel Basilio is a 71-year-old thinly-built male who claims that he was walking in the park. Next thing, he realized he is in the hospital. He claims that he stepped on something and next thing he realized he is in the hospital. No history of weakness, tonic-clonic activity. There is no history of significant head trauma. No similar episodes happened in the past. The patient is known to have seizure disorder being on Dilantin as well as Keppra. As per the family members stating that he is noncompliant with his medications. He is also known to be drinking regularly. PAST MEDICAL HISTORY: Meningitis, epilepsy, cataract. MEDICATIONS: Dilantin and Keppra. PERSONAL HISTORY: He quit smoking 8 years ago and history of alcohol use. ALLERGIES: NO KNOWN ALLERGIES. REVIEW OF SYSTEMS: As per H and P. PHYSICAL EXAMINATION VITAL SIGNS: Blood pressure 154/61 with mean arterial pressure of 92, respiratory rate of 16, temperature afebrile. NECK: Supple. No carotid bruits. LUNGS: Fair entry. HEART: Sounds are regular. EXTREMITIES: Distal muscle atrophy noted. NEUROLOGIC: The patient is arousable. He knows he is in the hospital. He knows what brought him to the hospital. No seizures since he has been admitted to hospital. CRANIAL NERVE EXAMINATION: Visual field intact. Pupils reactive to light. Extraocular movements normal. No nystagmus. No facial or sensory deficit. No facial asymmetry. Hearing is normal. Tongue is midline. Good gag. MOTOR EXAMINATION: He could able to lift both upper extremities against the gravity without any drift. DEEP TENDON REFLEXES: Biceps, brachioradialis, and triceps 2+. Both knees are 1+, both ankles are absent. Plantars are equivocal response on both side. COORDINATION: Ygxbfi-[id number]-[id number] test is intact. CONCLUSION: Upon reviewing his neurological examination, the patient has been presenting with postconcussion syndrome with CAT scan showed subdural hematoma. Reason for fall is not clear. Probably, he may had seizures that made him to the fall or he has stepped on something to hit his head. However, there is no clear obvious head trauma noted. The patient also is significantly suffering from bilateral symmetric sensory motor neuropathy. CT of the head reviewed by me showed a 6 mm on right side, left side 4 mm subdural hematoma. There is no mass on the right, no shift noted. Mild atrophy noted. LABORATORY DATA: Blood workup: WBC 7.0, hemoglobin 12.4, hematocrit 36.9, and platelets 205. PT 10.6, INR 1.0, PTT 29. Sodium 138, potassium 3.5, chloride 96, BUN 14, glucose 190, hemoglobin A1c 5.5, phosphorus 2.7, magnesium 1.8, protein 1+ in the urine. Phenytoin level is 0.3. RECOMMENDATIONS: 1. Knowing he is alcoholic and noncompliant with the medication, the patient should benefited with the one medication with least side effect medication, which Keppra can be continued with the therapeutic range. I would like to start him back on Keppra 1000 mg twice a day and I have recommended him to have reference program. 2. Follow up CT of the head to be done tomorrow. The patient can be kept fall precaution. The patient is not a surgical candidate. The patient could benefited with multivitamin and especially V1 to be given. Jimmy Robertson MD MTDD
--- NOTE | 2017-01-17 09:47 | CT ---
PROCEDURE: CT HEAD WITHOUT CONTRAST. HISTORY: s/p subdural COMPARISON: 01/16/2017 TECHNIQUE: Axial computed tomography images were obtained through the head/brain without intravenous contrast. Radiation dose: Total exam DLP = 924.05 mGy-cm. This CT exam was performed using one or more of the following dose reduction techniques: Automated exposure control, adjustment of the mA and/or kV according to patient size, and/or use of iterative reconstruction technique. FINDINGS: HEMORRHAGE: There is redemonstration of a right convexity subdural hematoma measuring 6 mm in maximum width with regional mass effect and effacement of ipsilateral cortical sulci. There is also no change in small left parietal subdural hematoma measuring 3 mm in with and subdural hematoma along the left interhemispheric fissure. There is also no change in left tentorial subdural hematoma. BRAIN: No midline shift or herniation. VENTRICLES: There is layering blood in the occipital horn of the left lateral ventricle. Mild age-related global volume loss. CALVARIUM: Unremarkable. PARANASAL SINUSES: There is abnormal soft tissue in the left sphenoid chamber. The remaining included paranasal sinuses are clear. MASTOID AIR CELLS: Unremarkable as visualized. No inflammatory changes. OTHER FINDINGS: None. IMPRESSION: No significant interval change in bilateral convexity, left posterior interhemispheric fissure and left tentorial subdural hematoma with regional mass effect on the right and effacement of the ipsilateral cortical sulci. Small amount of layering hemorrhage in the occipital horn of the left lateral ventricle. No evidence of midline shift or herniation. No obstructive hydrocephalus.
[2017-01-17] MEDS: levETIRAcetam 1,000 MG in Sodium Chloride 0.9% 100 ML IVPB SCH ×2 (10:12→21:53)
[2017-01-17] MEDS: Sodium Chloride 0.9% 1,000 ML IV SCH (12:53)
--- NOTE | 2017-01-17 14:54 | DS ---
HISTORY OF PRESENT ILLNESS: This is a 71-year-old individual well known to the with history of alcohol abuse, actually was seen by myself probably about a month ago with a small nonoperative subdural hematoma. Apparently, he was found down today possibly was brought to the [facility] ER and found to once again had a small acute subdural hematoma. PAST MEDICAL HISTORY, MEDICATIONS, ALLERGIES: Reviewed. PHYSICAL EXAMINATION: GENERAL: The patient has a Childwold coma score of 15. He is bright, awake, alert. He is oriented x3. HEENT: Pupils are equal and reactive. EOMs are full. NEUROLOGIC: Cranial nerves are all intact. He has 5/5 strength throughout. He has no drift. CT of the brain shows a relatively small right-sided acute subdural hematoma. There is almost no mass effect. IMPRESSION AND PLAN: My recommendation would be simply to observe the fellow overnight. Repeat the CT in the morning ____ that there is no change in the CAT scan. I think at that time he can be safely discharged. Javi Crokos MD
--- NOTE | 2017-01-17 15:57 | PN ---
DATE: 01/17/2017 TIME: 1:35 p.m. NEUROLOGICAL PROBLEM: Subdural hematoma, history of seizures, and alcohol abuse. PHYSICAL EXAMINATION: GENERAL: The patient is sleepy and easily arousable on calling his name. Denies any headache. No visual or bulbar dysfunction. He moves all 4 extremities against the gravity. VITAL SIGNS: Blood pressure 117/55, mean arterial pressure of 70, respiratory rate 16, and temperature afebrile. The patient is on ant epileptic drug Keppra, which is 1000 b.i.d. He has been doing well. No clinical seizures. The patient should have followup CT of the head and the patient should have MRI of the brain as well, when medically stable. The patient will be followed closely with you. Jimmy Robertson MD MTDD
--- NOTE | 2017-01-17 22:51 | CP.PCM.PN ---
Subjective - Date & Time of Evaluation Date of Evaluation: 01/17/17 Time of Evaluation: 10:00 - Subjective Subjective: Pt seen and examined, sitting in chair, on physiotherapy, is feeling better, asymptomatic Objective - Vital Signs/Intake and Output Vital Signs (last 24 hours): Temp Pulse Resp BP Pulse Ox 97.5 F L 67 18 94/58 L 97 01/17/17 16:00 01/17/17 20:00 01/17/17 20:00 01/17/17 20:00 01/17/17 20:00 Intake and Output: 01/17/17 01/18/17 18:59 06:59 Intake Total 1000 120 Output Total 450 200 Balance 550 -80 - Medications Medications: Current Medications Famotidine (Pepcid) 20 mg IVP Q12 [facility] Last Admin: 01/17/17 21:53 Dose: 20 mg Levetiracetam 1,000 mg/ Sodium (Chloride) 110 mls @ 420 mls/hr IVPB Q12 [facility] Last Admin: 01/17/17 21:53 Dose: 420 mls/hr Sodium Chloride (Sodium Chloride 0.9%) 1,000 mls @ 60 mls/hr IV .[id number] [facility] Last Admin: 01/17/17 12:53 Dose: 60 mls/hr Thiamine HCl (Vitamin B1 Tab) 100 mg PO DAILY [facility] Last Admin: 01/17/17 10:12 Dose: 100 mg - Labs Labs: 01/17/17 06:34 01/17/17 06:34 PT 10.6 SECONDS (9.7-12.2) 01/16/17 12:50 INR 1.0 01/16/17 12:50 APTT 29 SECONDS (21-34) 01/16/17 12:50 - Constitutional Appears: No Acute Distress - Head Exam Head Exam: ATRAUMATIC, NORMAL INSPECTION, NORMOCEPHALIC - Eye Exam Eye Exam: EOMI, Normal appearance, PERRL Pupil Exam: NORMAL ACCOMODATION, PERRL - ENT Exam ENT Exam: Mucous Membranes Moist, Normal Exam - Cardiovascular Exam Cardiovascular Exam: REGULAR RHYTHM, +S1, +S2. absent: Murmur - GI/Abdominal Exam GI & Abdominal Exam: Soft, Normal Bowel Sounds. absent: Tenderness Assessment and Plan (1) CVA (cerebral vascular accident) Status: Acute (2) Subdural hematoma Status: Acute (3) Head injury Status: Acute (4) Head injury with skull fracture Status: Acute
[2017-01-18] MEDS: Sodium Chloride 0.9% 1,000 ML IV SCH (06:29)
[2017-01-18] MEDS: levETIRAcetam 1,000 MG in Sodium Chloride 0.9% 100 ML IVPB SCH ×2 (09:30→22:26)
--- NOTE | 2017-01-18 19:25 | PN ---
DATE OF EVALUATION: 01/18/2017 TIME OF EVALUATION: 02:15 p.m. PROBLEM: Postconcussion syndrome, subdural hematoma and history of seizures. PHYSICAL EXAMINATION: VITAL SIGNS: Blood pressure 160/76, mean arterial pressure of 104, respiratory rate 16, and temperature afebrile. The patient is complaining of mild headache; however, he could able to get out of the bed and he could able to use the commode by himself. Rest of the examination is unchanged. The patient will be followed closely with you during the hospitalization. The patient is also requested to have an MRI of the brain for further localization and further progression of the epidural hematoma. Jimmy Robertson MD
--- NOTE | 2017-01-18 22:28 | CP.PCM.PN ---
Subjective - Date & Time of Evaluation Date of Evaluation: 01/18/17 Time of Evaluation: 15:00 - Subjective Subjective: pt seen and evaluted, improvng, on physical therapy and rehab Objective - Vital Signs/Intake and Output Vital Signs (last 24 hours): Temp Pulse Resp BP Pulse Ox 97.8 F 63 18 167/81 H 96 01/18/17 16:00 01/18/17 17:00 01/18/17 17:00 01/18/17 17:00 01/18/17 17:00 Intake and Output: 01/18/17 01/19/17 18:59 06:59 Intake Total 830 Output Total 350 Balance 480 - Medications Medications: Current Medications Famotidine (Pepcid) 20 mg IVP Q12 [facility] Last Admin: 01/18/17 22:27 Dose: 20 mg Levetiracetam 1,000 mg/ Sodium (Chloride) 110 mls @ 420 mls/hr IVPB Q12 [facility] Last Admin: 01/18/17 22:26 Dose: 420 mls/hr Sodium Chloride (Sodium Chloride 0.9%) 1,000 mls @ 60 mls/hr IV .[id number] [facility] Last Admin: 01/18/17 06:29 Dose: 60 mls/hr Thiamine HCl (Vitamin B1 Tab) 100 mg PO DAILY [facility] Last Admin: 01/18/17 09:30 Dose: 100 mg - Labs Labs: 01/17/17 06:34 01/17/17 06:34 PT 10.6 SECONDS (9.7-12.2) 01/16/17 12:50 INR 1.0 01/16/17 12:50 APTT 29 SECONDS (21-34) 01/16/17 12:50 - Constitutional Appears: No Acute Distress - Head Exam Head Exam: ATRAUMATIC, NORMAL INSPECTION, NORMOCEPHALIC - Eye Exam Eye Exam: EOMI, Normal appearance, PERRL Pupil Exam: NORMAL ACCOMODATION, PERRL - Respiratory Exam Respiratory Exam: Clear to Ausculation Bilateral, NORMAL BREATHING PATTERN - Cardiovascular Exam Cardiovascular Exam: REGULAR RHYTHM, +S1, +S2. absent: Murmur - GI/Abdominal Exam GI & Abdominal Exam: Soft, Normal Bowel Sounds. absent: Tenderness - Rectal Exam Rectal Exam: Deferred Assessment and Plan (1) CVA (cerebral vascular accident) Status: Acute (2) Subdural hematoma Status: Acute (3) Head injury Status: Acute (4) Subdural hemorrhage Status: Acute
[2017-01-19] MEDS: Sodium Chloride 0.9% 1,000 ML IV SCH ×2 (01:06→15:07)
[2017-01-19] MEDS: levETIRAcetam 1,000 MG in Sodium Chloride 0.9% 100 ML IVPB SCH ×2 (10:59→22:26)
--- NOTE | 2017-01-19 13:40 | MRI ---
PROCEDURE: Magnetic Resonance Angiography Brain HISTORY: R/O VASCULITIS COMPARISON: None available. TECHNIQUE: 3D time of flight MR angiography of the intracranial arteries was performed. Rotating maximum intensity projection images were generated. FINDINGS: INTERNAL CEREBRAL ARTERIES: Normal in caliber an appearance. The skull base, petrous, cavernous and supraclinoid segments are bilaterally widely patient. ANTERIOR CEREBRAL ARTERIES: Normal in caliber and appearance. A1 and A2 segments are widely patent. Smaller distal branches unremarkable, as visualized. MIDDLE CEREBRAL ARTERIES: Normal in caliber an appearance. M1 and M2 segments are widely patent. Perisylvian branches grossly symmetric. POSTERIOR CIRCULATION: Basilar Artery: Normal in caliber an appearance. Distal Vertebral Arteries: Normal in caliber an appearance. The left vertebral artery is dominant, an anatomic variant. Posterior Cerebral Arteries: Normal in caliber an appearance. Posterior Inferior Cerebellar Arteries: Normal in caliber an appearance. ANEURYSM/ VASCULAR MALFORMATIONS: None. OTHER FINDINGS: None. IMPRESSION: No evidence of vasculitis, arterial narrowing or definite significant stenosis.
--- NOTE | 2017-01-19 13:52 | MRI ---
PROCEDURE: MRI BRAIN WITHOUT CONTRAST HISTORY: [facility] COMPARISON: Head CT without contrast 01/17/2017. TECHNIQUE: Multiplanar multisequential MR imaging of the brain has been performed without intravenous contrast as requested. FINDINGS: HEMORRHAGE: Multifocal launch hemorrhage is identified once again in the interval and does not appear dramatically changed in the interval. Bilateral convexity and left parafalcine/tentorial subdural hematomas are stable remaining under 1 cm greatest thickness. The right convexity subdural remains greater in volume than the left which is rather minimal in general. Long TR white-matter changes at the right greater the left anterior inferior temporal lobe suggests contusions and minimally at the right frontal lobe laterally. Limited mass-effect identified at the inferior convexity sulci which remain slightly effaced. Sub tentorial imaging appears unremarkable as well as images of the brainstem. No hydrocephalus. No generalized mass effect. Stable diffuse cerebral atrophy an limited chronic microangiopathy are again identified. DWI: No evidence of an acute or early subacute infarction. BRAIN PARENCHYMA: Discussed in hemorrhage section above. VENTRICLES: Unremarkable. No hydrocephalus. CRANIUM: Unremarkable. ORBITS: Grossly unremarkable. PARANASAL SINUSES/MASTOIDS: Clear VASCULAR SYSTEM: Skull base flow voids intact. OTHER FINDINGS: None. IMPRESSION: No acute brain infarction or change in mass effect pattern related to the multifocal subdural hematomas at the bilateral convexities, left parafalcine and left tentorial regions. Multiple small bilateral temporal lobe contusions are identified inferiorly and possibly also the right frontal lobe posterior laterally. No definitive acute intracranial hemorrhage is appreciable and follow-up CT is recommended.
--- NOTE | 2017-01-19 14:42 | CARD ---
APPROVED REPORT EKG Measurement Heart [id number] <Conclusion> Normal sinus rhythm Left anterior fascicular block Left ventricular hypertrophy with QRS widening Cannot rule out Septal infarct, age undetermined Abnormal ECG
--- NOTE | 2017-01-19 14:43 | VASCLAB ---
PROCEDURE: Lower Extremity Venous Duplex Exam. HISTORY: right calf tenderness PRIORS: None. TECHNIQUE: Bilateral common femoral, femoral, popliteal and posterior tibial, peroneal and great saphenous veins were evaluated. Flow was assessed with color Doppler, compressibility, assessment of phasic flow and augmentation response. Report prepared by Aamir Still, T FINDINGS: RIGHT: 1. Common Femoral Vein: 1.1. Compressibility - Fully compressible: Thrombus - None : Flow - Phasic: Augmentation -Normal: Reflux - . 2. Femoral Vein: 2.1. Compressibility - Fully compressible: Thrombus - None : Flow - Phasic: Augmentation -Normal: Reflux - . 3. Popliteal Vein: 3.1. Compressibility - Fully compressible: Thrombus - None : Flow - Phasic: Augmentation -Normal: Reflux - . 4. Posterior Tibial Vein: 4.1. Compressibility - Fully compressible: Thrombus - None: Flow - : Augmentation -: Reflux - . 5. Peroneal Vein: 5.1. Compressibility - Fully compressible: Thrombus - None: Flow - : Augmentation -: Reflux - . 6. Great Saphenous Vein: 6.1. Compressibility - Fully compressible: Thrombus - None: Flow - : Augmentation - : Reflux - . LEFT: 1. Common Femoral Vein: 1.1. Compressibility - Fully compressible: Thrombus - None: Flow - Phasic: Augmentation -Normal: Reflux - . 2. Femoral Vein: 2.1. Compressibility - Fully compressible: Thrombus - None: Flow - Phasic: Augmentation -Normal: Reflux - . 3. Popliteal Vein: 3.1. Compressibility - Fully compressible: Thrombus - None : Flow - Phasic: Augmentation -Normal: Reflux - . 4. Posterior Tibial Vein: 4.1. Compressibility - Fully compressible: Thrombus - None: Flow - : Augmentation -: Reflux - . 5. Peroneal Vein: 5.1. Compressibility - Fully compressible: Thrombus - None: Flow - : Augmentation -: Reflux - . 6. Great Saphenous Vein: 6.1. Compressibility - Fully compressible: Thrombus - None: Flow - : Augmentation - : Reflux - . OTHER FINDINGS: Right: None significant. Left: None significant. IMPRESSION: Right: No evidence of deep or superficial vein thrombosis of the right lower extremity. Left: No evidence of deep or superficial vein thrombosis of the left lower extremity.
--- NOTE | 2017-01-19 23:36 | CP.PCM.PN ---
Subjective - Date & Time of Evaluation Date of Evaluation: 01/19/17 Time of Evaluation: 16:25 - Subjective Subjective: Pt seen and examined in ICU, is improving Objective - Vital Signs/Intake and Output Vital Signs (last 24 hours): Temp Pulse Resp BP Pulse Ox 97.6 F 52 L 18 144/82 97 01/19/17 15:00 01/19/17 15:00 01/19/17 15:00 01/19/17 15:00 01/19/17 15:00 Intake and Output: 01/19/17 01/20/17 18:59 06:59 Intake Total 960 Output Total 400 Balance 560 - Medications Medications: Current Medications Famotidine (Pepcid) 20 mg IVP Q12 [facility] Last Admin: 01/19/17 22:58 Dose: 20 mg Levetiracetam 1,000 mg/ Sodium (Chloride) 110 mls @ 420 mls/hr IVPB Q12 [facility] Last Admin: 01/19/17 22:26 Dose: 420 mls/hr Thiamine HCl (Vitamin B1 Tab) 100 mg PO DAILY [facility] Last Admin: 01/19/17 10:59 Dose: 100 mg - Labs Labs: 01/17/17 06:34 01/17/17 06:34 PT 10.6 SECONDS (9.7-12.2) 01/16/17 12:50 INR 1.0 01/16/17 12:50 APTT 29 SECONDS (21-34) 01/16/17 12:50
[2017-01-20 07:54] VITALS: RESP 20
--- NOTE | 2017-01-20 09:33 | PN ---
NEUROLOGICAL PROBLEM: Status post fall, postconcussion syndrome with the subdural hematoma and history of seizures, and noncompliant with the medication. PHYSICAL EXAMINATION VITAL SIGNS: Blood pressure of 150/88, mean arterial pressure of 108, respiratory rate of 16, and temperature is afebrile. DIAGNOSTIC DATA: The patient did have MRI of the brain that showed multiple contusion in the temporal lobe which probably secondary to his trauma and subdural hematoma in the temporal as well as bilateral convexities. There is no mass effect noted. No intracranial hemorrhage also not noted. MRA does not show any stenosis or vasculitis. RECOMMENDATIONS: 1. The patient is tolerating Keppra, let him continue the Keppra their recommended dose. 2. The patient should continue multivitamins and no platelets for the next 4 to 6 weeks. The patient will be followed while he is in the hospital, however, neurologically the patient is stable at present. Jimmy Robertson MD MTDD
[2017-01-20] MEDS: levETIRAcetam 1,000 MG in Sodium Chloride 0.9% 100 ML IVPB SCH ×2 (11:00→21:29)
[2017-01-21 02:40] LABS: LEVETIRACETAM 19.9 mcg/mL
--- NOTE | 2017-01-21 08:20 | CP.PCM.PN ---
Subjective - Date & Time of Evaluation Date of Evaluation: 01/20/17 Time of Evaluation: 20:45 - Subjective Subjective: pt is out of ICU, B.P is stable, bradycardic, pt is stable now Objective - Vital Signs/Intake and Output Vital Signs (last 24 hours): Temp Pulse Resp BP Pulse Ox 97.5 F L 68 20 150/78 98 01/21/17 04:20 01/21/17 04:20 01/21/17 04:20 01/21/17 04:20 01/21/17 04:20 Intake and Output: 01/21/17 01/21/17 06:59 18:59 Intake Total 470 Output Total 300 Balance 170 - Medications Medications: Current Medications Famotidine (Pepcid) 20 mg IVP Q12 [facility] Last Admin: 01/20/17 21:28 Dose: 20 mg Levetiracetam 1,000 mg/ Sodium (Chloride) 110 mls @ 420 mls/hr IVPB Q12 [facility] Last Admin: 01/20/17 21:29 Dose: 420 mls/hr Lisinopril (Zestril) 10 mg PO DAILY [facility] Last Admin: 01/20/17 12:43 Dose: 10 mg Ondansetron HCl (Zofran Inj) 4 mg IVP Q6H PRN PRN Reason: Nausea/Vomiting Last Admin: 01/20/17 21:28 Dose: 4 mg Thiamine HCl (Vitamin B1 Tab) 100 mg PO DAILY [facility] Last Admin: 01/20/17 11:00 Dose: 100 mg - Labs Labs: 01/17/17 06:34 01/17/17 06:34 PT 10.6 SECONDS (9.7-12.2) 01/16/17 12:50 INR 1.0 01/16/17 12:50 APTT 29 SECONDS (21-34) 01/16/17 12:50
[2017-01-21] MEDS: levETIRAcetam 1,000 MG in Sodium Chloride 0.9% 100 ML IVPB SCH ×2 (10:23→21:05)
--- NOTE | 2017-01-21 22:55 | CP.PCM.PN ---
Subjective - Date & Time of Evaluation Date of Evaluation: 01/21/17 - Subjective Subjective: HEADACHE, NO FEVER, NO SOB, S/P HEAD INJURY Objective - Vital Signs/Intake and Output Vital Signs (last 24 hours): Temp Pulse Resp BP Pulse Ox 98.1 F 65 20 156/75 H 99 01/21/17 15:25 01/21/17 15:25 01/21/17 15:25 01/21/17 19:54 01/21/17 15:25 Intake and Output: 01/21/17 01/22/17 18:59 06:59 Intake Total 350 340 Balance 350 340 - Medications Medications: Current Medications Acetaminophen (Tylenol 325mg Tab) 650 mg PO Q6 PRN PRN Reason: Pain, moderate (4-7) Last Admin: 01/21/17 18:17 Dose: 650 mg Famotidine (Pepcid) 20 mg IVP Q12 [facility] Last Admin: 01/21/17 21:06 Dose: 20 mg Levetiracetam 1,000 mg/ Sodium (Chloride) 110 mls @ 420 mls/hr IVPB Q12 [facility] Last Admin: 01/21/17 21:05 Dose: 420 mls/hr Lisinopril (Zestril) 10 mg PO DAILY [facility] Last Admin: 01/21/17 10:23 Dose: 10 mg Ondansetron HCl (Zofran Inj) 4 mg IVP Q6H PRN PRN Reason: Nausea/Vomiting Last Admin: 01/21/17 08:33 Dose: 4 mg Thiamine HCl (Vitamin B1 Tab) 100 mg PO DAILY [facility] Last Admin: 01/21/17 10:23 Dose: 100 mg - Labs Labs: 01/17/17 06:34 01/17/17 06:34 PT 10.6 SECONDS (9.7-12.2) 01/16/17 12:50 INR 1.0 01/16/17 12:50 APTT 29 SECONDS (21-34) 01/16/17 12:50 - Constitutional Appears: Non-toxic, No Acute Distress - Head Exam Head Exam: ATRAUMATIC, NORMAL INSPECTION, NORMOCEPHALIC - Eye Exam Eye Exam: EOMI, Normal appearance, PERRL Pupil Exam: NORMAL ACCOMODATION - ENT Exam ENT Exam: Mucous Membranes Moist, Normal Exam, Normal Oropharynx, TM's Normal Bilaterally - Neck Exam Neck Exam: Normal Inspection - Respiratory Exam Respiratory Exam: NORMAL BREATHING PATTERN - Cardiovascular Exam Cardiovascular Exam: REGULAR RHYTHM, +S1, +S2 - GI/Abdominal Exam GI & Abdominal Exam: Soft, Normal Bowel Sounds - Rectal Exam Rectal Exam: NORMAL INSPECTION - Extremities Exam Extremities Exam: Normal Capillary Refill - Neurological Exam Neurological Exam: Abnormal Gait, Alert, Awake, CN II-XII Intact, Oriented x3 Assessment and Plan (1) Hypertension Status: Chronic (2) Head injury Status: Acute (3) Low back pain Status: Chronic (4) Seizure Status: Chronic
[2017-01-22] MEDS: levETIRAcetam 1,000 MG in Sodium Chloride 0.9% 100 ML IVPB SCH ×2 (09:33→21:23)
--- NOTE | 2017-01-22 14:01 | CT ---
PROCEDURE: CT HEAD WITHOUT CONTRAST. HISTORY: f/u COMPARISON: 01/17/17 TECHNIQUE: Axial computed tomography images were obtained through the head/brain without i ntravenous contrast. Radiation dose: Total exam DLP = 1833 mGy-cm. This CT exam was performed using one or more of the following dose reduction techniques: Automated exposure control, adjustment of the mA and/or kV according to patient size, and/or use of iterative reconstruction technique. FINDINGS: HEMORRHAGE: No change of a right convexity subdural hematoma measuring 6 mm in maximum width with regional mass effect and effacement of ipsilateral cortical sulci. Left tentorial subdural hematoma is also unchanged. BRAIN: No mass effect or edema. No atrophy or chronic microvascular ischemic changes. VENTRICLES: Unremarkable. No hydrocephalus. CALVARIUM: Unremarkable. PARANASAL SINUSES: Unremarkable as visualized. No significant inflammatory changes. MASTOID AIR CELLS: Unremarkable as visualized. No inflammatory changes. OTHER FINDINGS: None. IMPRESSION: No change of a right convexity subdural hematoma measuring 6 mm in maximum width with regional mass effect and effacement of ipsilateral cortical sulci. Left tentorial subdural hematoma is also unchanged.
--- NOTE | 2017-01-22 22:09 | CP.PCM.PN ---
Subjective - Date & Time of Evaluation Date of Evaluation: 01/22/17 - Subjective Subjective: headache, confused, restless at times, no sob, no chest pain Objective - Vital Signs/Intake and Output Vital Signs (last 24 hours): Temp Pulse Resp BP Pulse Ox 97.1 F L 69 20 121/68 95 01/22/17 15:31 01/22/17 19:49 01/22/17 15:31 01/22/17 19:49 01/22/17 15:31 Intake and Output: 01/22/17 01/23/17 18:59 06:59 Intake Total 400 Output Total 600 Balance -200 - Medications Medications: Current Medications Acetaminophen (Tylenol 325mg Tab) 650 mg PO Q6 PRN PRN Reason: Pain, moderate (4-7) Last Admin: 01/21/17 18:17 Dose: 650 mg Famotidine (Pepcid) 20 mg IVP Q12 [facility] Last Admin: 01/22/17 21:23 Dose: 20 mg Levetiracetam 1,000 mg/ Sodium (Chloride) 110 mls @ 420 mls/hr IVPB Q12 [facility] Last Admin: 01/22/17 21:23 Dose: 420 mls/hr Lisinopril (Zestril) 20 mg PO DAILY [facility] Last Admin: 01/22/17 19:13 Dose: 20 mg Ondansetron HCl (Zofran Inj) 4 mg IVP Q6H PRN PRN Reason: Nausea/Vomiting Last Admin: 01/22/17 02:19 Dose: 4 mg Tamsulosin HCl (Flomax) 0.4 mg PO DAILY [facility] Last Admin: 01/22/17 13:08 Dose: 0.4 mg Thiamine HCl (Vitamin B1 Tab) 100 mg PO DAILY [facility] Last Admin: 01/22/17 09:34 Dose: 100 mg - Labs Labs: 01/17/17 06:34 01/17/17 06:34 PT 10.6 SECONDS (9.7-12.2) 01/16/17 12:50 INR 1.0 01/16/17 12:50 APTT 29 SECONDS (21-34) 01/16/17 12:50 - Constitutional Appears: Unkempt, Older Than Stated Age, Chronically Ill - Head Exam Head Exam: NORMAL INSPECTION, NORMOCEPHALIC - Eye Exam Eye Exam: EOMI, Normal appearance Pupil Exam: NORMAL ACCOMODATION - ENT Exam ENT Exam: Mucous Membranes Moist, Normal Exam, Normal Oropharynx, TM's Normal Bilaterally - Neck Exam Neck Exam: Normal Inspection - Respiratory Exam Respiratory Exam: Clear to Ausculation Bilateral, NORMAL BREATHING PATTERN - Cardiovascular Exam Cardiovascular Exam: REGULAR RHYTHM, +S1, +S2 - GI/Abdominal Exam GI & Abdominal Exam: Soft, Normal Bowel Sounds - Rectal Exam Rectal Exam: NORMAL INSPECTION - Exam Exam: NORMAL INSPECTION - Extremities Exam Extremities Exam: Full ROM, Normal Capillary Refill, Normal Inspection - Neurological Exam Neurological Exam: Abnormal Gait, Altered, Awake, CN II-XII Intact, Oriented x3 Neuro motor strength exam: Left Upper Extremity: 5, Right Upper Extremity: 5, Left Lower Extremity: 5, Right Lower Extremity: 5 - Psychiatric Exam Psychiatric exam: Anxious, Flat Affect - Skin Skin Exam: Erythema, Intact Assessment and Plan (1) Hypertension Status: Chronic (2) Head injury Status: Acute (3) Low back pain Status: Chronic (4) Seizure Status: Chronic
[2017-01-23 08:46] VITALS: BP 133/76; PULSE 83; TEMP 97.8; O2SAT 97
[2017-01-23] MEDS: levETIRAcetam 1,000 MG in Sodium Chloride 0.9% 100 ML IVPB SCH (09:35)
--- NOTE | 2017-01-23 14:09 | CP.PCM.PN ---
Subjective - Date & Time of Evaluation Date of Evaluation: 01/23/17 Time of Evaluation: 10:00 - Subjective Subjective: Pt seen and examined today , awake , alert, confused, denies any headache, chest pain, dizziness, N/V/D unsteady gait No overnight events reported by RN repeat CT head - no changes from previous CT Objective - Vital Signs/Intake and Output Vital Signs (last 24 hours): Temp Pulse Resp BP Pulse Ox 97.8 F 83 20 133/76 97 01/23/17 08:05 01/23/17 08:05 01/23/17 08:05 01/23/17 08:05 01/23/17 08:05 Intake and Output: 01/23/17 01/23/17 06:59 18:59 Intake Total 460 Balance 460 - Medications Medications: Current Medications Acetaminophen (Tylenol 325mg Tab) 650 mg PO Q6 PRN PRN Reason: Pain, moderate (4-7) Last Admin: 01/23/17 09:36 Dose: 650 mg Famotidine (Pepcid) 20 mg IVP Q12 [facility] Last Admin: 01/23/17 09:35 Dose: 20 mg Levetiracetam 1,000 mg/ Sodium (Chloride) 110 mls @ 420 mls/hr IVPB Q12 [facility] Last Admin: 01/23/17 09:35 Dose: 420 mls/hr Lisinopril (Zestril) 20 mg PO DAILY [facility] Last Admin: 01/23/17 09:36 Dose: 20 mg Ondansetron HCl (Zofran Inj) 4 mg IVP Q6H PRN PRN Reason: Nausea/Vomiting Last Admin: 01/22/17 02:19 Dose: 4 mg Tamsulosin HCl (Flomax) 0.4 mg PO DAILY [facility] Last Admin: 01/23/17 09:35 Dose: 0.4 mg Thiamine HCl (Vitamin B1 Tab) 100 mg PO DAILY [facility] Last Admin: 01/23/17 09:36 Dose: 100 mg - Labs Labs: 01/17/17 06:34 01/17/17 06:34 PT 10.6 SECONDS (9.7-12.2) 01/16/17 12:50 INR 1.0 01/16/17 12:50 APTT 29 SECONDS (21-34) 01/16/17 12:50 - Constitutional Appears: Non-toxic, No Acute Distress, Confused - Respiratory Exam Respiratory Exam: Rhonchi, NORMAL BREATHING PATTERN - Cardiovascular Exam Cardiovascular Exam: REGULAR RHYTHM, +S1, +S2 - GI/Abdominal Exam GI & Abdominal Exam: Soft, Normal Bowel Sounds - Neurological Exam Neurological Exam: Alert (confused), Awake (confused ) Assessment and Plan - Assessment and Plan (Free Text) Assessment: A/P 71 y/o male, with PMHx of seizures, and subdural hematoma, admitted s/p fall with subdural hematoma Pt has unsteady gait and confused repeat CT head -No change of a right convexity subdural hematoma measuring 6 mm in maximum width with regional mass effect and effacement of ipsilateral cortical sulci. Left tentorial subdural hematoma is also unchanged. Discharge plan discussed with sister in law sami, refused the idea of [facility] , would like to take care of him at home and PT out patient CM pat also discussed with sister in law in length regarding discharge disposition and she refused the idea of [facility] D/W with Dr. Murdock, stable for discharge home today and f/u with Dr. Murdock office in 1 week
--- NOTE | 2017-01-23 22:46 | CP.PCM.DIS ---
Provider - Provider Date of Admission: 01/16/17 13:26 Attending physician: Elmer Murdock MD Diagnosis - Discharge Diagnosis (1) Hypertension Status: Chronic (2) Head injury Status: Acute (3) Low back pain Status: Chronic (4) Seizure Status: Chronic Hospital Course - Lab Results Lab Results: Micro Results 01/16/17 Unknown Naris MRSA Culture (Admit) - Final MRSA NOT DETECTED Most Recent Lab Values WBC 5.9 K/uL (4.8-10.8) 01/17/17 06:34 RBC 3.82 Mil/uL (4.40-5.90) L 01/17/17 06:34 Hgb 11.3 g/dL (12.0-18.0) L 01/17/17 06:34 Hct 33.7 % (35.0-51.0) L 01/17/17 06:34 MCV 88.3 fL (80.0-94.0) 01/17/17 06:34 MCH 29.5 pg (27.0-31.0) 01/17/17 06:34 MCHC 33.4 g/dL (33.0-37.0) 01/17/17 06:34 RDW 13.5 % (11.5-14.5) 01/17/17 06:34 Plt Count 172 K/uL (130-400) 01/17/17 06:34 MPV 8.5 fL (7.2-11.7) 01/17/17 06:34 Neut % (Auto) 76.7 % (50.0-75.0) H 01/17/17 06:34 Lymph % (Auto) 11.5 % (20.0-40.0) L 01/17/17 06:34 Clark % (Auto) 9.8 % (0.0-10.0) 01/17/17 06:34 Eos % (Auto) 1.7 % (0.0-4.0) 01/17/17 06:34 Baso % (Auto) 0.3 % (0.0-2.0) 01/17/17 06:34 Neut # 4.6 K/uL (1.8-7.0) 01/17/17 06:34 Lymph # 0.7 K/uL (1.0-4.3) L 01/17/17 06:34 Clark # 0.6 K/uL (0.0-0.8) 01/17/17 06:34 Eos # 0.1 K/uL (0.0-0.7) 01/17/17 06:34 Baso # 0.0 K/uL (0.0-0.2) 01/17/17 06:34 PT 10.6 SECONDS (9.7-12.2) 01/16/17 12:50 INR 1.0 01/16/17 12:50 APTT 29 SECONDS (21-34) 01/16/17 12:50 Sodium 135 mmol/L (132-148) 01/17/17 06:34 Potassium 4.1 mmol/L (3.6-5.2) 01/17/17 06:34 Chloride 99 mmol/L (98-107) 01/17/17 06:34 Carbon Dioxide 27 mmol/L (22-30) 01/17/17 06:34 Anion Gap 13 (10-20) 01/17/17 06:34 BUN 14 mg/dL (9-20) 01/17/17 06:34 Creatinine 0.8 MG/DL (0.8-1.5) 01/17/17 06:34 Est GFR ( Amer) > 60 01/17/17 06:34 Est GFR (Non-Af Amer) > 60 01/17/17 06:34 POC Glucose (mg/dL) 190 mg/dL (65-110) H 01/16/17 12:21 Random Glucose 85 mg/dL (75-110) 01/17/17 06:34 Hemoglobin A1c 5.5 % (4.2-6.5) 01/16/17 12:50 Calcium 7.7 mg/dl (8.6-10.4) L 01/17/17 06:34 Phosphorus 3.1 mg/dL (2.5-4.5) 01/17/17 06:34 Magnesium 1.9 mg/dL (1.6-2.3) 01/17/17 06:34 Total Bilirubin 0.6 mg/dL (0.2-1.3) 01/17/17 06:34 AST 35 U/L (17-59) 01/17/17 06:34 ALT 25 U/L (21-72) 01/17/17 06:34 Alkaline Phosphatase 108 U/L (38-126) 01/17/17 06:34 Troponin I 0.0170 ng/mL (0.00-0.120) 01/16/17 12:50 Total Protein 5.5 g/dL (6.3-8.3) L 01/17/17 06:34 Albumin 2.9 g/dL (3.5-5.0) L D 01/17/17 06:34 Globulin 2.5 gm/dL (2.2-3.9) 01/17/17 06:34 Albumin/Globulin Ratio 1.2 (1.0-2.1) 01/17/17 06:34 Triglycerides 58 mg/dL (0-149) 01/16/17 12:50 Cholesterol 164 mg/dL (0-199) 01/16/17 12:50 LDL Cholesterol Direct 76 mg/dL (0-129) 01/16/17 12:50 HDL Cholesterol 62 mg/dL (30-70) 01/16/17 12:50 Urine Color Yellow (YELLOW) 01/16/17 17:20 Urine Clarity Hazy (Clear) 01/16/17 17:20 Urine pH 8.0 (5.0-8.0) 01/16/17 17:20 Ur Specific [place] 1.023 (1.003-1.030) 01/16/17 17:20 Urine Protein 1+ mg/dL (NEGATIVE) H 01/16/17 17:20 Urine Glucose (UA) Normal mg/dL (Normal) 01/16/17 17:20 Urine Ketones Negative mg/dL (NEGATIVE) 01/16/17 17:20 Urine Blood Negative (NEGATIVE) 01/16/17 17:20 Urine Nitrate Negative (NEGATIVE) 01/16/17 17:20 Urine Bilirubin Negative (NEGATIVE) 01/16/17 17:20 Urine Urobilinogen 2.0 mg/dL (0.2-1.0) 01/16/17 17:20 Ur Leukocyte Esterase Neg Amelia/uL (Negative) 01/16/17 17:20 Urine WBC (Auto) 2 /hpf (0-5) 01/16/17 17:20 Urine RBC (Auto) 2 /hpf (0-3) 01/16/17 17:20 Ur Squamous Epith Cells < 1 /hpf (0-5) 01/16/17 17:20 Urine Bacteria Few (<OCC) H 01/16/17 17:20 Phenytoin < 3.0 ug/mL (10-20) L 01/16/17 12:50 Levetiracetam 19.9 mcg/mL 01/17/17 17:32 Blood Type O POSITIVE 01/16/17 12:50 Antibody Screen Negative 01/16/17 12:50 - Hospital Course Hospital Course: ADMITTED WITH FALL ,HEAD INJURY AND HE WAS GIVEN PT, HE DID WELL AND HE IS FOR DISCHARGE Discharge Exam - Head Exam Head Exam: NORMAL INSPECTION, NORMOCEPHALIC - Eye Exam Eye Exam: EOMI, Normal appearance, PERRL Pupil Exam: NORMAL ACCOMODATION - ENT Exam ENT Exam: Mucous Membranes Moist, Normal Exam, Normal Oropharynx, TM's Normal Bilaterally - Neck Exam Neck exam: Normal Inspection - Respiratory Exam Respiratory Exam: NORMAL BREATHING PATTERN - Cardiovascular Exam Cardiovascular Exam: REGULAR RHYTHM, +S1, +S2 - GI/Abdominal Exam GI & Abdominal Exam: Normal Bowel Sounds - Rectal Exam Rectal Exam: NORMAL INSPECTION - Neurological Exam Neurological exam: Abnormal Gait, Alert, CN II-XII Intact, Reflexes Normal - Psychiatric Exam Psychiatric exam: Anxious, Depressed, Flat Affect - Skin Skin Exam: Intact Discharge Plan - Discharge Medications Prescriptions: Amoxicillin/Clavulanate [Augmentin 875 MG-125 MG] 1 tab PO Q12 #14 tab levETIRAcetam [Keppra] 1,000 mg PO BID #60 syr Famotidine [Pepcid] 40 mg PO DAILY #30 Thiamine [Vitamin B1 Tab] 100 mg PO DAILY #30 tab Lisinopril [Zestril] 20 mg PO DAILY #30 tab - Follow Up Plan Condition: CRITICAL Disposition: HOME/ ROUTINE Instructions: Lisinopril (By mouth), Famotidine (By mouth), Thiamine (Vitamin B -1) (By mouth), Amoxicillin/Clavulanate Potassium (By mouth), Levetiracetam (By mouth), Complete Blenderized Diet (DC), Subdural Hematoma (DC), Stroke (DC) Additional Instructions: Please follow up with Dr. Murdock office in 1 week Continue medication as per Med. REc. continue PT/OT / out patient fall precautions, seizure precautions Referrals: Jimmy Robertson MD [Staff Provider] - Elmer Murdock MD [Staff Provider] -
== END 2017-01-23 15:50 | disposition home or self-care (01) | DRG 84 ==
LOC: C.ER 12:16 → C.9E 13:26 → C.9I 14:17 → C.6T 01-18 17:15
PROVIDERS: ADMIT Internal Medicine; ATTEND Internal Medicine
DX: S06.5X9A Traumatic subdural hemorrhage with loss of consciousness of unspecified duration, initial encounter (principal); G40.909 Epilepsy, unspecified, not intractable, without status epilepticus; I10 Essential (primary) hypertension; F10.10 Alcohol abuse, uncomplicated; W19.XXXA Unspecified fall, initial encounter; K21.9 Gastro-esophageal reflux disease without esophagitis; Z87.891 Personal history of nicotine dependence; Z91.14 Patient's other noncompliance with medication regimen

== ENCOUNTER 2017-01-23 16:58 | Inpatient (IN) | payer MEDICARE, MEDICAID ==
[2017-01-23 16:58] VITALS: BMI 26.6
[2017-01-27 16:16] VITALS: BP 137/75; PULSE 76; RESP 20; TEMP 98.1; O2SAT 96
== END 2017-01-27 19:42 | DRG 643 ==
LOC: C.ER 16:58 → C.9E 17:14 → C.3T 18:59 → OBSVTOIN 21:51 → C.9I 23:44 → C.3T 01-25 13:23
PROVIDERS: ADMIT Internal Medicine; ATTEND Internal Medicine
DX: E22.2 Syndrome of inappropriate secretion of antidiuretic hormone (principal); G03.9 Meningitis, unspecified; F03.90 Unspecified dementia, unspecified severity, without behavioral disturbance, psychotic disturbance, mood disturbance, and anxiety; F10.188 Alcohol abuse with other alcohol-induced disorder; G40.909 Epilepsy, unspecified, not intractable, without status epilepticus; M19.90 Unspecified osteoarthritis, unspecified site; I10 Essential (primary) hypertension; S06.5X9D Traumatic subdural hemorrhage with loss of consciousness of unspecified duration, subsequent encounter; R26.81 Unsteadiness on feet; Z87.891 Personal history of nicotine dependence; K27.9 Peptic ulcer, site unspecified, unspecified as acute or chronic, without hemorrhage or perforation; T42.6X5A Adverse effect of other antiepileptic and sedative-hypnotic drugs, initial encounter; T46.5X5A Adverse effect of other antihypertensive drugs, initial encounter; Y90.9 Presence of alcohol in blood, level not specified

== ENCOUNTER 2017-05-25 10:08 | Emergency (ER) | payer MEDICARE, MEDICAID ==
[2017-05-25 10:09] VITALS: BMI 25.4
[2017-05-25 11:30] VITALS: O2SAT 98
--- NOTE | 2017-05-25 11:37 | C.PDOC ---
History Of Present Illness DELAY IN SEEING PATIENT DUE TO REGISTRATION PROBLEM: 71 yo M with PMHx of chronic low back pain, epilepsy, hypertension, recent hx of subdural hematoma come in for evaluation of intermittent dizziness for past few days. Pt reports, "felt lightheaded when was walking this AM" . Otherwise, pt denies recent seizure, headache, vertigo, visual changes, focal deficits, neck pain, CP, SOB, dsypnea, diaphoresis, palpitation, abd. pain, N/V/D, back pain, UTI sx. Ambulate to ED for evaluation, appears comfortable, not in any apparent distress. Time Seen by Provider: 05/25/17 11:17 Chief Complaint (Nursing): Dizziness/Lightheaded History Per: Patient Past Medical History Reviewed: Historical Data, Nursing Documentation, Vital Signs Vital Signs: Last Vital Signs Temp 97.7 F 05/25/17 14:04 Pulse 81 05/25/17 14:04 Resp 18 05/25/17 14:04 BP 159/95 H 05/25/17 14:04 Pulse Ox 98 05/25/17 14:58 - Medical History PMH: Arthritis, Fractures, HTN, Seizures Denies: HIV, Chronic Kidney Disease [facility] [place] Procedures CLOSED ENDOSCOPIC BIOPSY OF LARGE INTESTINE (01/20/13) COMMUNICATIVE/COGNITIVE INTEGRATION SKILLS TREATMENT (01/27/17) DRESSING TECHNIQUES TREATMENT USING ASSIST EQUIPMENT (01/27/17) ESOPHAGOGASTRODUODENOSCOPY [EGD] W/CLOSED BIOPSY (01/20/13) GAIT TRAINING/FUNCTIONAL AMBULATION TREATMENT (01/27/17) GROOMING/PERSONAL HYGIENE TREATMENT USING ASSIST EQUIPMENT (01/27/17) HOME MANAGEMENT TREATMENT USING ASSIST EQUIPMENT (01/27/17) REPAIR SCALP SKIN, EXTERNAL APPROACH (11/24/16) THERAPEUTIC EXERCISE TREATMENT OF MUSCULOSK LOW BACK/LE (01/27/17) Family History: States: Unknown Family Hx - Social History Hx Tobacco Use: No Hx Alcohol Use: Yes Hx Substance Use: No - Immunization History Hx Tetanus Toxoid Vaccination: No Hx Influenza Vaccination: Yes Hx Pneumococcal Vaccination: No Review Of Systems Except As Marked, All Systems Reviewed And Found Negative. Constitutional: Negative for: Fever, Chills Eyes: Negative for: Vision Change ENT: Negative for: Ear Discharge, Nose Discharge Cardiovascular: Negative for: Chest Pain, Palpitations, Orthopnea, Paroxysmal Noc. Dyspnea, Edema, Light Headedness Respiratory: Negative for: Cough, Shortness of Breath, Wheezing Gastrointestinal: Negative for: Nausea, Vomiting, Abdominal Pain, Diarrhea Genitourinary: Negative for: Incontinence Musculoskeletal: Negative for: Neck Pain, Back Pain Neurological: Positive for: Dizziness. Negative for: Weakness, Numbness, Change in Speech, Seizures, Altered Mental Status, Headache Physical Exam - Physical Exam Appears: Well, Non-toxic, No Acute Distress Skin: Normal Color, Warm, No Rash Head: Normacephalic Eye(s): bilateral: PERRL, EOMI Ear(s): Bilateral: Normal Nose: No Flaring, No Discharge, No Deformity Oral Mucosa: Moist Tongue: Normal Appearing, No Lesions Lips: Normal Appearing Throat: No Exudate Neck: Supple Cardiovascular: Rhythm Regular, No Murmur, No JVD, Other ((-) carotid bruits B/L ) Respiratory: No Decreased Breath Sounds, No Accessory Muscle Use, No Rales, No Rhonchi Gastrointestinal/Abdominal: Soft, No Tenderness, No Distention, No Guarding Extremity: No Normal ROM, No Pedal Edema, No Deformity, No Swelling Neurological/Psych: Oriented x3, Normal Speech, Normal Motor, Normal Sensation, Normal Reflexes ED Course And Treatment - Laboratory Results Result Diagrams: 05/25/17 11:42 05/25/17 11:42 Lab Interpretation: No Acute Changes ECG: Interpreted By Me (ED attending), Viewed By Me ECG Interpretation: No Acute Changes Interpretation Of ECG: SR@75/min, LAD, LAFB, LVH, no acute ST-T changes. Compare to old EKG from 04/14/17- same, no new acute changes. O2 Sat by Pulse Oximetry: 98 (RA) Pulse Ox Interpretation: Normal - Other Rad CXR X-Ray: Viewed By Me, Read By Radiologist Interpretation: Chest x-ray two views. History: Shortness of breath. Comparison 01/24/2017. Findings: Biapical pleural thickening with upper lobe granulomatous changes. Right hilar prominence. Two small rounded nodular densities at the lung bases may represent nipple shadows. Chronic interstitial lung markings. Calcification at the aortic knob. Degenerative changes in the spine. Postsurgical changes at the left bony glenoid. Paravertebral osteophytosis. Impression: Biapical pleural thickening with upper lobe granulomatous changes. Right hilar prominence. Two small rounded nodular densities at the lung bases may represent nipple shadows. Chronic interstitial lung markings. Calcification at the aortic knob. - CT Scan/US CT - Head Other Rad Studies (CT/US): Read By Radiologist, Radiology Report Reviewed CT/US Interpretation: PROCEDURE: CT HEAD WITHOUT CONTRAST. HISTORY: dizziness , headache. COMPARISON: None available. TECHNIQUE: Axial computed tomography images were obtained through the head/brain without intravenous contrast. Radiation dose: Total exam DLP = 869 mGy-cm. This CT exam was performed using one or more of the following dose reduction techniques: Automated exposure control, adjustment of the mA and/or kV according to patient size, and/or use of iterative reconstruction technique. FINDINGS: HEMORRHAGE: Persistent chronic right frontoparietal subdural extra-axial collection measuring 4.7 x 0.6 centimeters. No significant adjacent mass effect on the ventricles. BRAIN: No mass effect or edema. Scattered focal lucencies in the subcortical and periventricular white matter suggestive for chronic microvascular ischemic change. Bilateral basal ganglia calcifications. Confluent low attenuation within the anterior left temporal lobe suggestive for encephalomalacia from chronic infarction. VENTRICLES: Unremarkable. No hydrocephalus. CALVARIUM: Unremarkable. PARANASAL SINUSES: Unremarkable as visualized. No significant inflammatory changes. MASTOID AIR CELLS: Unremarkable as visualized. No inflammatory changes. OTHER FINDINGS: Intracranial vascular calcifications. IMPRESSION: Persistent 4.7 x 0.6 centimeter right frontoparietal subdural extra-axial collection without adjacent significant mass effect on the ventricles. This may be better evaluated with MRI if clinically indicated. Confluent low attenuation seen within the anterior right temporal lobe which may represent encephalomalacia from chronic infarction. Again correlation with MRI may be helpful if clinically indicated. Chronic microvascular ischemic changes. Intracranial vascular calcifications. Progress Note: Pt was OBS in ED for 3 hurs and reports some improvement in symptoms. Pt walked in ED with baseline gait, no dizziness encounter. Afebrile , hemodynamicaly stable. NOn-toxic. Neuorlogicaly intact. Blodo work review and appears at baseline. EKG, CXR- no new acute changes. CT head results review- no new acute changes. Case discussed with ED attending, discahrge with outpt f/u recommend at present time. results review and discussed with pt, agrees with discharges and outpt f/u now. NIHSS Stroke Scale - Date/Time Evaluation Performed Date Performed: 05/25/17 Time Performed: 11:48 When Was NIHSS Performed: Baseline - How Severe is the Stroke Level of Consciousness: 0=Alert LOC to Questions: 0=Both comments correct Best Gaze: 0=Normal Visual: 0=No visual loss Facial: 0=Normal Motor Arm - Left: 0=No drift Motor Arm - Right: 0=No drift Motor Leg - Left: 0=No drift Motor Leg - Right: 0=No drift Limb Ataxia: 0=Absent Sensory: 0=Normal Best Language: 0=No aphasia Dysarthia: 0=Normal articulation Extinction & Inattention (Neglect): 0=Normal, no object Disposition Counseled Patient/Family Regarding: Studies Performed, Diagnosis, Need For Followup - Disposition Referrals: Elmer Murdock MD [Staff Provider] - Disposition: HOME/ ROUTINE Disposition Time: 12:54 Condition: STABLE Additional Instructions: Follow up with PMD, Neurology in 2-3 days for re-evaluation. Return to ED if any worsening or new changes. Instructions: Dizziness (ED) Forms: [employer] (Czech) - Clinical Impression Clinical Impression: Dizziness
[2017-05-25 11:45] LABS: BASO % 0.3 % (0.0-2.0); EOS # 0.1 K/uL (0.0-0.7); EOS % 0.8 % (0.0-4.0); HEMATOCRIT 42.6 % (35.0-51.0); LYMPH # 0.7 K/uL (1.0-4.3); LYMPH % 6.6 % (20.0-40.0); MEAN CELL VOLUME 86.3 fL (80.0-94.0); MEAN CORPUSCULAR HEMOGLOBIN 28.6 pg (27.0-31.0); MEAN CORPUSCULAR HGB CONC 33.1 g/dL (33.0-37.0); MEAN PLATELET VOLUME 7.8 fL (7.2-11.7); MONO # 0.5 K/uL (0.0-0.8); MONO % 4.7 % (0.0-10.0); PLATELET COUNT 238 K/uL (130-400); RED CELL DISTRIBUTION WIDTH 13.3 % (11.5-14.5)
[2017-05-25 11:51] LABS: WHITE BLOOD COUNT 10.8 K/uL (4.8-10.8)
[2017-05-25 12:00] LABS: ALB/GLOB RATIO 1.8 (1.0-2.1); ALKALINE PHOSPHATASE 87 U/L (38-126); ALT/SGPT 39 U/L (21-72); AST/SGOT 40 U/L (17-59); BILIRUBIN,TOTAL 0.6 mg/dL (0.2-1.3); BLOOD UREA NITROGEN 14 mg/dL (9-20); CALCIUM 8.4 mg/dl (8.6-10.4); CARBON DIOXIDE 31 mmol/L (22-30); CHLORIDE 94 mmol/L (98-107); GFR AFRICAN-AMERICAN > 60; GLUCOSE,RANDOM 94 mg/dL (75-110); POTASSIUM 3.9 mmol/L (3.6-5.2); SODIUM 132 mmol/L (132-148); TOTAL PROTEIN 6.6 g/dL (6.3-8.3)
[2017-05-25 12:15] LABS: EOSINOPHIL 2 % (0-4); NEUTROPHIL 85 % (50-75); TOTAL CELLS COUNTED 100
[2017-05-25 12:17] LABS: URINE BILIRUBIN NEGATIVE (NEGATIVE); URINE BLOOD NEGATIVE (NEGATIVE); URINE COLOR Yellow (YELLOW); URINE GLUCOSE (UA) NORMAL (Normal); URINE KETONE NEGATIVE (NEGATIVE); URINE LEUKOCYTE ESTERASE NEG Leu/uL (Negative); URINE PROTEIN NEGATIVE (NEGATIVE); URINE UROBILINOGEN NORMAL mg/dL (0.2-1.0); WBC URINE < 1 /hpf (0-5)
[2017-05-25] MEDS ORDERED: Sodium Chloride 0.9% 1,000 ML IV ONE (12:26)
[2017-05-25 12:32] LABS: THYROID STIMULATING HORMONE 1.86 mIU/L (0.46-4.68)
--- NOTE | 2017-05-25 12:32 | RAD ---
Chest x-ray two views History: Shortness of breath. Comparison 01/24/2017 Findings: Biapical pleural thickening with upper lobe granulomatous changes. Right hilar prominence. Two small rounded nodular densities at the lung bases may represent nipple shadows. Chronic interstitial lung markings. Calcification at the aortic knob. Degenerative changes in the spine. Postsurgical changes at the left bony glenoid. Paravertebral osteophytosis. Impression: Biapical pleural thickening with upper lobe granulomatous changes. Right hilar prominence. Two small rounded nodular densities at the lung bases may represent nipple shadows. Chronic interstitial lung markings. Calcification at the aortic knob.
[2017-05-25] MEDS ORDERED: Sodium Chloride 0.9% 1,000 ML ONE (12:37)
--- NOTE | 2017-05-25 12:49 | CT ---
PROCEDURE: CT HEAD WITHOUT CONTRAST. HISTORY: dizziness, headache COMPARISON: None available. TECHNIQUE: Axial computed tomography images were obtained through the head/brain without intravenous contrast. Radiation dose: Total exam DLP = 869 mGy-cm. This CT exam was performed using one or more of the following dose reduction techniques: Automated exposure control, adjustment of the mA and/or kV according to patient size, and/or use of iterative reconstruction technique. FINDINGS: HEMORRHAGE: Persistent chronic right frontoparietal subdural extra-axial collection measuring 4.7 x 0.6 centimeters. No significant adjacent mass effect on the ventricles. BRAIN: No mass effect or edema. Scattered focal lucencies in the subcortical and periventricular white matter suggestive for chronic microvascular ischemic change. Bilateral basal ganglia calcifications. Confluent low attenuation within the anterior left temporal lobe suggestive for encephalomalacia from chronic infarction. VENTRICLES: Unremarkable. No hydrocephalus. CALVARIUM: Unremarkable. PARANASAL SINUSES: Unremarkable as visualized. No significant inflammatory changes. MASTOID AIR CELLS: Unremarkable as visualized. No inflammatory changes. OTHER FINDINGS: Intracranial vascular calcifications. IMPRESSION: Persistent 4.7 x 0.6 centimeter right frontoparietal subdural extra-axial collection without adjacent significant mass effect on the ventricles. This may be better evaluated with MRI if clinically indicated. Confluent low attenuation seen within the anterior right temporal lobe which may represent encephalomalacia from chronic infarction. Again correlation with MRI may be helpful if clinically indicated. Chronic microvascular ischemic changes. Intracranial vascular calcifications.
[2017-05-25 14:08] VITALS: BP 159/95; PULSE 81; RESP 18; TEMP 97.7
--- NOTE | 2017-05-26 21:55 | CARD ---
APPROVED REPORT EKG Measurement Heart [id number] <Conclusion> Normal sinus rhythm Left anterior fascicular block Left ventricular hypertrophy with QRS widening Cannot rule out Anteroseptal infarct, age undetermined Abnormal ECG
== END 2017-05-25 15:20 | disposition home or self-care (01) ==
LOC: C.ER 10:08
DX: R42 Dizziness and giddiness (principal); I10 Essential (primary) hypertension
CPT/HCPCS: 70450; 71020; 80053; 81001; 83880; 84443; 84484; 85025; 85610; 85730; 93005; 96361; 96374; 99285; J2405; J7040

== ENCOUNTER 2017-11-04 15:42 | Emergency (ER) | payer MEDICARE, OTHER ==
[2017-11-04 15:43] VITALS: BMI 25.4
--- NOTE | 2017-11-04 17:02 | C.PDOC ---
History Of Present Illness 72 y/o male presents to the ER complaining of left clavicular pain. Patient fell and had an adducted shoulder 5 days ago at home. Patient states that the fall was accidental. He is taking occasional Tylenol without improvement. Denies having ETOH use, seizure activity, and other injuries. Time Seen by Provider: 11/04/17 16:22 Chief Complaint (Nursing): Upper Extremity Problem/Injury History Per: Patient History/Exam Limitations: no limitations Onset/Duration Of Symptoms: Days Current Symptoms Are (Timing): Still Present Severity: Moderate Past Medical History Reviewed: Historical Data, Nursing Documentation, Vital Signs Vital Signs: Last Vital Signs Temp 98.0 F 11/04/17 16:08 Pulse 67 11/04/17 16:08 Resp 19 11/04/17 16:08 BP 167/90 H 11/04/17 16:08 Pulse Ox 100 11/04/17 18:43 - Medical History PMH: Arthritis, Fractures, HTN, Seizures Denies: HIV, Chronic Kidney Disease Other Surgeries: Hx of surgeries - [facility] Procedures CLOSED ENDOSCOPIC BIOPSY OF LARGE INTESTINE (01/20/13) COMMUNICATIVE/COGNITIVE INTEGRATION SKILLS TREATMENT (01/27/17) DRESSING TECHNIQUES TREATMENT USING ASSIST EQUIPMENT (01/27/17) ESOPHAGOGASTRODUODENOSCOPY [EGD] W/CLOSED BIOPSY (01/20/13) GAIT TRAINING/FUNCTIONAL AMBULATION TREATMENT (01/27/17) GROOMING/PERSONAL HYGIENE TREATMENT USING ASSIST EQUIPMENT (01/27/17) HOME MANAGEMENT TREATMENT USING ASSIST EQUIPMENT (01/27/17) REPAIR SCALP SKIN, EXTERNAL APPROACH (11/24/16) THERAPEUTIC EXERCISE TREATMENT OF MUSCULOSK LOW BACK/LE (01/27/17) Family History: States: No Known Family Hx - Social History Hx Tobacco Use: No Hx Alcohol Use: Yes (Former; Takes Librium) Hx Substance Use: No - Immunization History Hx Tetanus Toxoid Vaccination: No Hx Influenza Vaccination: Yes Hx Pneumococcal Vaccination: No Review Of Systems Except As Marked, All Systems Reviewed And Found Negative. Musculoskeletal: Positive for: Other (left clavicular pain) Physical Exam - Physical Exam Appears: Non-toxic, No Acute Distress Skin: Normal Color, Warm, Ecchymosis (region of ecchymosis to left clavicular region ( 30 x 30 cm) ) Head: Atraumatic, Normacephalic Eye(s): bilateral: Normal Inspection Nose: Normal Oral Mucosa: Moist Neck: Supple Chest: Symmetrical Cardiovascular: Rhythm Regular Respiratory: Normal Breath Sounds, No Rales, No Rhonchi, No Wheezing Extremity: Normal ROM (left shoulder), Deformity (obvious deformity of left clavicle) Neurological/Psych: Oriented x3, Normal Speech, Normal Motor (left arm), Normal Sensation (left arm) ED Course And Treatment O2 Sat by Pulse Oximetry: 100 (RA) Pulse Ox Interpretation: Normal - Other Rad L shoulde X-Ray: Interpreted by Me (+ L clavicular fx, no pna/pnx/rib fx/shoulder fx/ disloc.) Progress Note: ice pack, sling, motrin, tramadol Reevaluation Time: 17:03 Reassessment Condition: Improved - Physician Consult Information Outcome Of Conversation: 1700: d/w Dr. Torito Foreman- nhi. 1700: d/w Dr. Baez- Ortho Laboratory Technical Specialist- requests CT scan and d/c home. will f/u in office. 1800: pt's PMD is Dr. Murdock- nhi. Medical Decision Making Medical Decision Making: L clavicular fx from fall ADDucted shoulder 5 days ago. OLD L shoulder surgery, no new shoulder injuries Disposition Doctor Will See Patient In The: Office Counseled Patient/Family Regarding: Studies Performed, Diagnosis - Disposition Referrals: Cordell Baez III, MD [Staff Provider] - Elmer Murdock MD [Staff Provider] - Disposition: HOME/ ROUTINE Disposition Time: 17:59 Condition: GOOD Additional Instructions: Keep L arm sling in place at all times, because moving the L shoulder can do more damage with the broken pieces of the clavicle! ice packs 1/2 hour per hour, nothing hot. Motrin 400-600 mg every 6 hours as needed for pain Tramadol 50 mg (narcotic) 1 tab every 6 hours (and before sleep) as needed for more severe pain Call Dr. Baez's office tomorrow (Orthopedic Surgeon) to make an appointment for outpatient follow-up. Dr. Murdock is aware Prescriptions: traMADol [Ultram] 50 mg PO Q6H PRN #20 tab PRN Reason: pain Instructions: Clavicle Fracture Forms: [email or web address] [facility] ([place]epali) - Clinical Impression Clinical Impression: Closed left clavicular fracture - Scribe Statement The provider has reviewed the documentation as recorded by the Scribe Edwar Jean Provider Attestation: All medical record entries made by the Amandaibe were at my direction and personally dictated by me. I have reviewed the chart and agree that the record accurately reflects my personal performance of the history, physical exam, medical decision making, and the department course for this patient. I have also personally directed, reviewed, and agree with the discharge instructions and disposition.
--- NOTE | 2017-11-04 17:06 | RAD ---
PROCEDURE: Radiographs of the Left Shoulder HISTORY: fall 5days ago COMPARISON: No prior. FINDINGS: BONES: There is comminuted fracture of the distal left clavicle without disruption of the acromioclavicular joint at this time. degenerative changes seen there instead as well as at the glenohumeral joint. The major fracture fragment is displaced inferiorly the with of the midshaft of the left clavicle. Orthopedic hermelinda are identified at the glenoid process region. JOINTS: As above. SOFT TISSUES: Soft tissue edema surrounds the fracture site at the distal left clavicle. OTHER FINDINGS: None. IMPRESSION: Comminuted distal left clavicle fracture with inferior distraction of the major fracture fragment but without apparent disruption of the acromioclavicular or glenohumeral joints.
--- NOTE | 2017-11-04 18:19 | CT ---
PROCEDURE: CT left clavicle/shoulder HISTORY: L clavicle Fx: CT shoulder and clavicle together COMPARISON: Not available TECHNIQUE: 2.5 mm contiguous axial sections were acquired through the left clavicle and shoulder. Sagittal and coronal images were reformatted from the axial scan. FINDINGS: There is a displaced, comminuted fracture of the distal left clavicle. No other fracture is identified. The acromioclavicular articulation is intact. There is mild acromioclavicular degenerative arthritis. The glenohumeral articulation is intact. There is evidence of old ORIF of the glenoid. The humeral head is intact. There is extensive subpleural and centrilobular pulmonary emphysema. IMPRESSION: Comminuted, displaced distal clavicular fracture with preservation of the acromioclavicular articulation.
[2017-11-04 18:51] VITALS: BP 170/92; PULSE 73; RESP 18; TEMP 97.9; O2SAT 99
== END 2017-11-04 18:48 | disposition home or self-care (01) ==
LOC: C.ER 15:42
DX: S42.032A Displaced fracture of lateral end of left clavicle, initial encounter for closed fracture (principal); W18.39XA Other fall on same level, initial encounter; Y92.009 Unspecified place in unspecified non-institutional (private) residence as the place of occurrence of the external cause

== ENCOUNTER 2017-12-12 22:43 | Emergency (ER) | payer MEDICARE, OTHER ==
[2017-12-12 22:43] VITALS: BMI 25.4
--- NOTE | 2017-12-12 23:08 | C.PDOC ---
History Of Present Illness 72 year old male presents to the ED for evaluation and having a witnessed seizure. Patient reports he was with his friends when he started seizing, patient does not remember the event, no urinary incontinence and did not bite his tongue. Patient suffers from seizures currently taking Kepra 500 mg twice a day. Patient's dose was recently increased to 500 months ago. Patient's last seizure was 1-2 months ago, quit drinking 8 years ago. Patient is not taking any new medications. Patient denies CP, LOC, weakness, numbness, SOB, headache, head injury. Time Seen by Provider: 12/12/17 23:04 Chief Complaint (Nursing): Seizure History Per: Patient, EMS History/Exam Limitations: no limitations Recent Seizure Activity Began: Just Before Arrival Number Of Seizures: One Length Of Seizures (Duration): Unknown Quality Of Seizure: Generalized Precipitating Factor(s): None Post-ictal Period: No Severity: None Recent travel outside of the [place]: No Additional History Per: Patient, EMS Past Medical History Reviewed: Historical Data, Nursing Documentation, Vital Signs Vital Signs: Last Vital Signs Temp 97.9 F 12/12/17 22:54 Pulse 72 12/12/17 22:54 Resp 16 12/12/17 22:54 BP 187/91 H 12/12/17 22:54 Pulse Ox 98 12/13/17 01:55 - Medical History PMH: Arthritis, Fractures, HTN, Seizures Denies: HIV, Chronic Kidney Disease Other Surgeries: right eye cataract and left shoulder Fx with pins and rods - [facility] Procedures CLOSED ENDOSCOPIC BIOPSY OF LARGE INTESTINE (01/20/13) COMMUNICATIVE/COGNITIVE INTEGRATION SKILLS TREATMENT (01/27/17) DRESSING TECHNIQUES TREATMENT USING ASSIST EQUIPMENT (01/27/17) ESOPHAGOGASTRODUODENOSCOPY [EGD] W/CLOSED BIOPSY (01/20/13) GAIT TRAINING/FUNCTIONAL AMBULATION TREATMENT (01/27/17) GROOMING/PERSONAL HYGIENE TREATMENT USING ASSIST EQUIPMENT (01/27/17) HOME MANAGEMENT TREATMENT USING ASSIST EQUIPMENT (01/27/17) REPAIR SCALP SKIN, EXTERNAL APPROACH (11/24/16) THERAPEUTIC EXERCISE TREATMENT OF MUSCULOSK LOW BACK/LE (01/27/17) Family History: States: Unknown Family Hx - Social History Hx Tobacco Use: No Hx Alcohol Use: Yes Hx Substance Use: No - Immunization History Hx Tetanus Toxoid Vaccination: No Hx Influenza Vaccination: Yes Hx Pneumococcal Vaccination: No Review Of Systems Constitutional: Negative for: Fever, Chills, Weakness, Malaise Eyes: Negative for: Pain, Vision Change, Conjunctivae Inflammation ENT: Negative for: Ear Pain, Ear Discharge, Nose Pain Cardiovascular: Negative for: Chest Pain, Palpitations, Orthopnea, Paroxysmal Noc. Dyspnea, Edema, Light Headedness Respiratory: Negative for: Cough, Shortness of Breath, SOB with Excertion, Pleuritic Pain, Sputum, Wheezing Gastrointestinal: Negative for: Nausea, Vomiting, Abdominal Pain, Diarrhea, Constipation, Melena Genitourinary: Negative for: Dysuria, Frequency, Incontinence, Hematuria Musculoskeletal: Negative for: Neck Pain, Back Pain, Hand Pain Skin: Negative for: Rash Neurological: Positive for: Seizures. Negative for: Weakness, Numbness, Incoordination, Confusion, Altered Mental Status, Headache, Dizziness Psych: Negative for: Anxiety, Depression Physical Exam - Physical Exam Appears: Non-toxic, No Acute Distress Skin: Normal Color, Warm, Dry Head: Atraumatic, Normacephalic Eye(s): bilateral: Normal Inspection, PERRL, EOMI Ear(s): Bilateral: Normal Oral Mucosa: Moist Tongue: Normal Appearing, No Lesions Lips: Normal Appearing, No Lesions Teeth: Normal Dentition Gingiva: Normal Appearing Throat: Normal Neck: Normal, Normal ROM, Supple Chest: Symmetrical Cardiovascular: Rhythm Regular Respiratory: Normal Breath Sounds, No Rales, No Rhonchi, No Wheezing Gastrointestinal/Abdominal: Soft, No Tenderness, No Guarding, No Rebound Extremity: Normal ROM, No Tenderness, No Swelling Extremity: Bilateral: Atraumatic, No Pedal Edema, Normal Color And Temperature, Normal ROM Neurological/Psych: Oriented x3, Normal Speech, Normal Cognition, Normal Cranial Nerves, Normal Motor, Normal Sensation, Normal Reflexes Gait: Steady ED Course And Treatment - Laboratory Results Result Diagrams: 12/12/17 23:20 12/12/17 23:20 ECG: Interpreted By Me, Viewed By Me ECG Rhythm: Sinus Rhythm, R BBB, PVC (occasional) Interpretation Of ECG: Occasional PVCs. UT 180. QRS 128. Qt 430. QTC 464. RBBB, left antefascicular block, LVH, no ischemic changes Rate From EC (BPM) O2 Sat by Pulse Oximetry: 98 (ON RA) Pulse Ox Interpretation: Normal - CT Scan/US CT head Other Rad Studies (CT/US): Read By Radiologist, Radiology Report Reviewed CT/US Interpretation: Name: COLETTE BARRAGAN Age: 72Years M Date: 12/12/2017. Requesting Physician: ScoutnicolshilpaalphonseKirsten kelly : 1945. [facility] Procedure Ordered As Accession Number of Images. CT HEAD WO CT HEAD W O CONTRAST [id number]. Provided Clinical History: seziure. EXAM: CT Head Without Intravenous Contrast. EXAM DATE/TIME: 12/12/2017 11:13 PM. CLINICAL HISTORY: 72 years old, male; Pain; Headache; Patient HX: 05-25-17; Additional info: Seziure. TECHNIQUE: Axial computed tomography images of the head/brain without intravenous contrast. All CT scans at this facility use at least one of these dose optimization techniques: automated. exposure control; mA and/or kV adjustment per patient size (includes targeted exams where dose is. matched to clinical indication); or iterative reconstruction. Coronal and sagittal reformatted images were created and reviewed. COMPARISON: No relevant prior studies available. FINDINGS: Brain: Moderate white matter disease and volume loss are identified. There is no acute infarct or. edema. No hemorrhage. Ventricles: Normal. No ventriculomegaly. Bones/joints: Normal. No acute fracture. Sinuses: Normal as visualized. No acute sinusitis. Mastoid air cells: Normal as visualized. No mastoid effusion. Soft tissues: Normal. IMPRESSION: There are no acute concerning abnormalities. Thank you for allowing us to participate in the care of your patient. Dictated and Authenticated by: Rachel Yuong MD Medical Decision Making Medical Decision Making: Impression: seizure Plan: * CT head * Labs * UA Disposition Counseled Patient/Family Regarding: Diagnosis, Need For Followup - Disposition Referrals: [facility] [Outside] [facility] [Outside] [facility] [place] [Outside] Elmer Murdock MD [Staff Provider] - Wilder Tucker MD [Staff Provider] - Disposition: HOME/ ROUTINE Disposition Time: 01:55 Condition: GOOD Additional Instructions: return if seizures continue Forms: [employer] (Yoruba) - Clinical Impression Clinical Impression: Seizure, Generalized-onset seizures - Scribe Statement The provider has reviewed the documentation as recorded by the Scribe Lucas Gilliland All medical record entries made by the Scribe were at my direction and personally dictated by me. I have reviewed the chart and agree that the record accurately reflects my personal performance of the history, physical exam, medical decision making, and the department course for this patient. I have also personally directed, reviewed, and agree with the discharge instructions and disposition.
[2017-12-12 23:25] LABS: BASO % 0.9 % (0.0-2.0); EOS # 0.1 K/uL (0.0-0.7); EOS % 2.6 % (0.0-4.0); HEMOGLOBIN 12.4 g/dL (12.0-18.0); LYMPH # 1.3 K/uL (1.0-4.3); LYMPH % 26.9 % (20.0-40.0); MEAN CELL VOLUME 86.8 fL (80.0-94.0); MEAN CORPUSCULAR HEMOGLOBIN 28.9 pg (27.0-31.0); MEAN CORPUSCULAR HGB CONC 33.3 g/dL (33.0-37.0); MEAN PLATELET VOLUME 8.1 fL (7.2-11.7); MONO # 0.5 K/uL (0.0-0.8); MONO % 9.9 % (0.0-10.0); NEUT # 2.9 K/uL (1.8-7.0); NEUT % 59.7 % (50.0-75.0); RBC 4.27 Mil/uL (4.40-5.90); RED CELL DISTRIBUTION WIDTH 14.2 % (11.5-14.5)
[2017-12-12 23:27] LABS: WHITE BLOOD COUNT 4.8 K/uL (4.8-10.8)
[2017-12-12 23:31] LABS: PROTHROMBIN TIME 10.5 SECONDS (9.7-12.2)
[2017-12-12 23:35] LABS: ALB/GLOB RATIO 1.7 (1.0-2.1); ALT/SGPT 29 U/L (21-72); AST/SGOT 25 U/L (17-59); BLOOD UREA NITROGEN 15 mg/dL (9-20); CALCIUM 8.5 mg/dl (8.6-10.4); GFR AFRICAN-AMERICAN > 60; GFR NON-AFRICAN AMERICAN > 60
[2017-12-12 23:42] LABS: URINE BILIRUBIN NEGATIVE (NEGATIVE); URINE BLOOD NEGATIVE (NEGATIVE); URINE CLARITY Clear (Clear); URINE COLOR Straw (YELLOW); URINE GLUCOSE (UA) NORMAL (Normal); URINE LEUKOCYTE ESTERASE NEG Leu/uL (Negative); URINE PROTEIN NEGATIVE (NEGATIVE); URINE UROBILINOGEN NORMAL mg/dL (0.2-1.0)
[2017-12-12 23:54] LABS: BARBITURATES, UR NEGATIVE (NEGATIVE); BENZODIAZEPINES, UR NEGATIVE (NEGATIVE); OPIATES, UR NEGATIVE (NEGATIVE); PHENCYCLIDINE, UR NEGATIVE (NEGATIVE)
[2017-12-13 06:41] VITALS: BP 157/90; PULSE 79; RESP 20; TEMP 98.4; O2SAT 99
--- NOTE | 2017-12-13 11:17 | CT ---
PROCEDURE: CT HEAD WITHOUT CONTRAST. HISTORY: Seizures COMPARISON: 05/25/2017. TECHNIQUE: Axial computed tomography images were obtained through the head/brain without intravenous contrast. Radiation dose: Total exam DLP = 869.18 mGy-cm. This CT exam was performed using one or more of the following dose reduction techniques: Automated exposure control, adjustment of the mA and/or kV according to patient size, and/or use of iterative reconstruction technique. FINDINGS: HEMORRHAGE: No intracranial hemorrhage. 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 There are mild chronic microangiopathic changes. There is no mass, mass effect or abnormal extra-axial fluid collection. There are coarse atherosclerotic calcifications in the cavernous carotid arteries. VENTRICLES: There is mild age-related global parenchymal volume loss and proportionate enlargement of the ventricles and cortical sulci. CALVARIUM: The skull base and calvarium are normal. PARANASAL SINUSES: Predominantly clear. MASTOID AIR CELLS: Predominantly clear. OTHER FINDINGS: None. IMPRESSION: No acute intracranial abnormality. No significant interval change. A preliminary report was provided by [employer].
--- NOTE | 2017-12-14 19:54 | CARD ---
APPROVED REPORT EKG Measurement Heart [id number] IL [id number] [id number] <Conclusion> Sinus rhythm with occasional premature ventricular complexes Right bundle branch block Left anterior fascicular block Bifascicular block Voltage criteria for left ventricular hypertrophy Cannot rule out Anteroseptal infarct, age undetermined Abnormal ECG
== END 2017-12-13 06:30 | disposition home or self-care (01) ==
LOC: C.ER 22:43
DX: R56.9 Unspecified convulsions (principal); I10 Essential (primary) hypertension; Z87.891 Personal history of nicotine dependence
CPT/HCPCS: 70450; 80053; 80185; 81001; 82948; 85025; 85610; 85730; 93005; 99285; G0480

== ENCOUNTER 2018-04-19 07:33 | Inpatient (IN) | payer MEDICARE, OTHER ==
[2018-04-19 07:39] VITALS: BMI 24.7
--- NOTE | 2018-04-19 07:50 | C.PDOC ---
Addendum entered and electronically signed by Ramona Adhikari PA-C 04/22/18 19:08: Addendum Addendum: 04/22/18 19:08 signature Original Note: History Of Present Illness 72 year old male presents to the ED for evaluation of right upper quadrant abdominal pain which began two days ago. Although patient has complaint of left shoulder pain in triage, he did not mention pain to the area until he was asked. Patient states he underwent surgery to the area and has been experiencing left shoulder pain for years. He denies fever, chills, chest pain and shortness of breath. Chief Complaint (Nursing): Abdominal Pain History Per: Patient History/Exam Limitations: no limitations Onset/Duration Of Symptoms: Days (2) Current Symptoms Are (Timing): Still Present Location Of Pain/Discomfort: RUQ Radiation Of Pain To:: None Quality Of Discomfort: "Pain" Associated Symptoms: denies: Fever, Chills, Chest Pain Additional History Per: Patient Past Medical History Reviewed: Historical Data, Nursing Documentation, Vital Signs Vital Signs: Last Vital Signs Temp 97.9 F 04/19/18 07:39 Pulse 83 04/19/18 07:39 Resp 18 04/19/18 07:39 BP 116/73 04/19/18 07:39 Pulse Ox 95 04/19/18 07:39 - Medical History PMH: Arthritis, Fractures (lft shoulder), HTN, Hypercholesterolemia, Seizures Denies: HIV, Chronic Kidney Disease Surgical History: No Surg Hx - [facility] Procedures CLOSED ENDOSCOPIC BIOPSY OF LARGE INTESTINE (01/20/13) COMMUNICATIVE/COGNITIVE INTEGRATION SKILLS TREATMENT (01/27/17) DRESSING TECHNIQUES TREATMENT USING ASSIST EQUIPMENT (01/27/17) ESOPHAGOGASTRODUODENOSCOPY [EGD] W/CLOSED BIOPSY (01/20/13) GAIT TRAINING/FUNCTIONAL AMBULATION TREATMENT (01/27/17) GROOMING/PERSONAL HYGIENE TREATMENT USING ASSIST EQUIPMENT (01/27/17) HOME MANAGEMENT TREATMENT USING ASSIST EQUIPMENT (01/27/17) REPAIR SCALP SKIN, EXTERNAL APPROACH (11/24/16) THERAPEUTIC EXERCISE TREATMENT OF MUSCULOSK LOW BACK/LE (01/27/17) Family History: States: Unknown Family Hx - Social History Hx Tobacco Use: No Hx Alcohol Use: No Hx Substance Use: No - Immunization History Hx Tetanus Toxoid Vaccination: No Hx Influenza Vaccination: Yes Hx Pneumococcal Vaccination: No Review Of Systems Constitutional: Negative for: Fever, Chills Cardiovascular: Negative for: Chest Pain Respiratory: Negative for: Shortness of Breath Gastrointestinal: Positive for: Abdominal Pain (right upper quadrant ). Negative for: Nausea, Vomiting Physical Exam - Physical Exam Appears: Non-toxic, No Acute Distress Skin: Normal Color, Warm, Dry Head: Atraumatic, Normacephalic Eye(s): bilateral: Normal Inspection Oral Mucosa: Moist Neck: Supple Chest: Symmetrical, No Deformity, No Tenderness Cardiovascular: Rhythm Regular, No Murmur Respiratory: Normal Breath Sounds, No Rales, No Rhonchi, No Wheezing Gastrointestinal/Abdominal: Soft, Tenderness (right upper quadrant ), No Guarding, No Rebound Extremity: Normal ROM, Capillary Refill (less than 2 seconds ) Neurological/Psych: Oriented x3, Normal Speech, Normal Cognition ED Course And Treatment - Laboratory Results Result Diagrams: 04/19/18 08:12 04/19/18 08:12 ECG: Interpreted By Me, Viewed By Me ECG Rhythm: Sinus Rhythm Interpretation Of ECG: Sinus rhythm at 78bpm. No acute changes. Rate From EC O2 Sat by Pulse Oximetry: 95 (on RA ) Pulse Ox Interpretation: Normal - Other Rad CXR X-Ray: Viewed By Me, Read By Radiologist Interpretation: Date of service: 04/19/2018. PROCEDURE: CHEST RADIOGRAPH, 1 VIEW. HISTORY: Abdominal pain. COMPARISON: 05/25/2017. FINDINGS: LUNGS: The lungs are well inflated and clear. PLEURA: No pneumothorax or pleural effusion. CARDIOVASCULAR: The heart is normal in size. No aortic atheroscler otic calcifications present. OSSEOUS STRUCTURES: There is an old comminuted displaced fracture in the left distal. Postsurgical changes in the left glenoid. VISUALIZED UPPER ABDOMEN: Normal. OTHER FINDINGS: None. IMPRESSION: No active pulmonary disease. - CT Scan/US Abdominal US Other Rad Studies (CT/US): Read By Radiologist, Radiology Report Reviewed CT/US Interpretation: Accession No. : [id number]. Patient Name / ID : LAUREL ALVARENGA / [id number]. Exam Date : 04/19/2018 08:32:41 ( Approved ). Study Comment : Sex / Age : M / 72Y. Creator : Ramy Denton MD. Dictator : Ramy Denton MD. Test Man : Mash Grinder : Ramy Denton MD. Approver2 : Report Date : 04/19/2018 09:18:58. My Comment : . Date of service: 04/19/2018. HISTORY: ruq pain. COMPARISON: None. TECHNIQUE: Sonographic evaluation of the right upper quadrant of the abdomen. FINDINGS: LIVER: Measures 15.5 cm in length. Normal echogenicity of the liver parenchyma. The common hepatic duct appears to measure 8.6 mm without choledocholithiasis appreciated. GALLBLADDER: Gallbladder is mildly distended with cholelithiasis in the lumen but no sonographic Vu sign, mural thickening or pericholecystic fluid collection evident. COMMON BILE DUCT: Measures 6.0 mm. No stones. No dilatation. PANCREAS: The pancreas is obscured by overlying bowel gas. RIGHT KIDNEY: Measures 9.2 cm in length. Normal ech ogenicity. No calculus, mass, or hydronephrosis. AORTA: No aneurysmal dilatation. IVC: Unremarkable. OTHER FINDINGS: None . IMPRESSION: Cholelithiasis identified in the gallbladder which is otherwise unremarkable. No sonographic Vu sign is reported. However, the common hepatic duct juan c sures 8.6 mm with common bile duct measuring 6.0 mm without choledocholithiasis. Consider follow-up MRCP exam or HIDA scan. Pancreas is not evaluated due to extensive overlying bowel gas. Progress Note: Bloodwork, urinalysis, US Abdomen, CXR, and EKG ordered and reviewed. Zosyn IV, Protonix IVP, and Toradol IVP given. Disposition - Disposition Disposition: HOME/ ROUTINE Disposition Time: 14:56 Condition: STABLE Forms: [facility] ([place]) - Clinical Impression Clinical Impression: Abdominal pain - PA / CLIENT SERVICES REPRESENTATIVE / Resident Statement MD/DO has reviewed & agrees with the documentation as recorded. - Scribe Statement The provider has reviewed the documentation as recorded by the Scribe (Tamiko Landa) All medical record entries made by the Scribe were at my direction and personally dictated by me. I have reviewed the chart and agree that the record accurately reflects my personal performance of the history, physical exam, medical decision making, and the department course for this patient. I have also personally directed, reviewed, and agree with the discharge instructions and disposition. Decision To Admit - Pt Status Changed To: Hospital Disposition Of: Observation - . Bed Request Type: Regular Admitting Physician: Elmer Murdock Patient Diagnosis: Abdominal pain
[2018-04-19 08:16] LABS: BASO # 0.1 K/uL (0.0-0.2); BASO % 0.8 % (0.0-2.0); EOS % 0.3 % (0.0-4.0); HEMOGLOBIN 12.7 g/dL (12.0-18.0); LYMPH # 0.9 K/uL (1.0-4.3); MEAN CELL VOLUME 86.5 fL (80.0-94.0); MEAN CORPUSCULAR HEMOGLOBIN 29.2 pg (27.0-31.0); MEAN CORPUSCULAR HGB CONC 33.7 g/dL (33.0-37.0); MEAN PLATELET VOLUME 7.6 fL (7.2-11.7); MONO # 0.9 K/uL (0.0-0.8); MONO % 5.9 % (0.0-10.0); NEUT # 13.3 K/uL (1.8-7.0); PLATELET COUNT 224 K/uL (130-400); RBC 4.36 Mil/uL (4.40-5.90); RED CELL DISTRIBUTION WIDTH 13.6 % (11.5-14.5)
[2018-04-19 08:17] LABS: WHITE BLOOD COUNT 15.3 K/uL (4.8-10.8)
[2018-04-19 08:25] LABS: INR 1.2; PROTHROMBIN TIME 13.1 SECONDS (9.7-12.2)
[2018-04-19 08:31] LABS: ALB/GLOB RATIO 1.6 (1.0-2.1); ALT/SGPT 25 U/L (21-72); AST/SGOT 23 U/L (17-59); BLOOD UREA NITROGEN 28 mg/dL (9-20); CALCIUM 9.2 mg/dl (8.6-10.4); GFR NON-AFRICAN AMERICAN 60; LIPASE 54 U/L (23-300)
--- NOTE | 2018-04-19 09:13 | RAD ---
Date of service: 04/19/2018 PROCEDURE: CHEST RADIOGRAPH, 1 VIEW HISTORY: Abdominal pain COMPARISON: 05/25/2017. FINDINGS: LUNGS: The lungs are well inflated and clear. PLEURA: No pneumothorax or pleural effusion. CARDIOVASCULAR: The heart is normal in size. No aortic atherosclerotic calcifications present. OSSEOUS STRUCTURES: There is an old comminuted displaced fracture in the left distal. Postsurgical changes in the left glenoid. VISUALIZED UPPER ABDOMEN: Normal. OTHER FINDINGS: None. IMPRESSION: No active pulmonary disease.
--- NOTE | 2018-04-19 09:22 | US ---
Date of service: 04/19/2018 HISTORY: ruq pain COMPARISON: None. TECHNIQUE: Sonographic evaluation of the right upper quadrant of the abdomen. FINDINGS: LIVER: Measures 15.5 cm in length. Normal echogenicity of the liver parenchyma. The common hepatic duct appears to measure 8.6 mm without choledocholithiasis appreciated. GALLBLADDER: Gallbladder is mildly distended with cholelithiasis in the lumen but no sonographic Vu sign, mural thickening or pericholecystic fluid collection evident. COMMON BILE DUCT: Measures 6.0 mm. No stones. No dilatation. PANCREAS: The pancreas is obscured by overlying bowel gas. RIGHT KIDNEY: Measures 9.2 cm in length. Normal echogenicity. No calculus, mass, or hydronephrosis. AORTA: No aneurysmal dilatation. IVC: Unremarkable. OTHER FINDINGS: None . IMPRESSION: Cholelithiasis identified in the gallbladder which is otherwise unremarkable. No sonographic Vu sign is reported. However, the common hepatic duct measures 8.6 mm with common bile duct measuring 6.0 mm without choledocholithiasis. Consider follow-up MRCP exam or HIDA scan. Pancreas is not evaluated due to extensive overlying bowel gas.
[2018-04-19 09:38] LABS: LYMPHOCYTE 5 % (20-40); MONOCYTE 6 % (0-10); NEUTROPHIL 89 % (50-75); PLATELET ESTIMATE NORMAL (NORMAL); TOTAL CELLS COUNTED 100
[2018-04-19] MEDS ORDERED: Piperacillin/Tazobact 3.375 gm 100 ML IV STA (11:28)
[2018-04-19] MEDS ORDERED: Piperacillin/Tazobact 3.375 gm 100 ML IVPB ONE (11:59)
[2018-04-19 12:56] LABS: SQUAMOUS EPITHIAL 1 /hpf (0-5); URINE BACTERIA RARE (<OCC); URINE BILIRUBIN NEGATIVE (NEGATIVE); URINE BLOOD NEGATIVE (NEGATIVE); URINE CLARITY Hazy (Clear); URINE COLOR Amber (YELLOW); URINE GLUCOSE (UA) NORMAL (Normal); URINE LEUKOCYTE ESTERASE NEG Leu/uL (Negative); URINE PROTEIN 1+ mg/dL (NEGATIVE)
--- NOTE | 2018-04-19 14:32 | CP.PCM.CON ---
<Skyla Reece - Last Filed: 04/19/18 19:00> History of Present Illness - History of Present Illness History of Present Illness: General Surgery consult - Dr. Felix Pt is a 72 y/o male, PMH of HLD and seizures, presented to the ED with constant, sharp, RUQ pain that began this morning. Since admittance, the pain has subsided and is only reproduced with palpation. As per pt, the pain does not radiate to any other location and is not associated with food intake. Walking and lying flat tend to make his pain worse. Pt has experienced this pain several times before, and claims it usually goes away on its own or with tylenol. Pt reports chills, headache, cough, and some trouble urinating; but denies nausea/vomiting, diarrhea/constipation, hematuria, melena, hematochezia, dysuria, chest pain, SOB, or palpitations. PMH: seizure disorder, HLD PSH: L shoulder; melanoma removal (stomach and face) All: NKDA Social: former 3 pack/day smoker for approx 50 yrs, quit 7 yrs ago; former alcohol drinker: several 6 packs/wk, quit approx 8 yrs ago, denies any drugs Review of Systems - Review of Systems All systems: reviewed and no additional remarkable complaints except (as per HPI) Past Patient History - Infectious Disease Hx of Infectious Diseases: None - Past Medical History & Family History Past Medical History?: Yes Past Family History: Reviewed and not pertinent - Past Social History Smoking Status: Former Smoker Alcohol: None Drugs: Denies - CARDIAC Hx Hypercholesterolemia: Yes Hx Hypertension: Yes - PULMONARY Hx Respiratory Disorders: Yes - NEUROLOGICAL Hx Seizures: Yes - HEENT Hx HEENT Problems: Yes - RENAL Hx Chronic Kidney Disease: No - ENDOCRINE/METABOLIC Hx Endocrine Disorders: No - HEMATOLOGICAL/ONCOLOGICAL Hx Human Immunodeficiency Virus (HIV): No - INTEGUMENTARY Hx Dermatological Problems: No - MUSCULOSKELETAL/RHEUMATOLOGICAL Hx Arthritis: Yes Hx Fractures: Yes (lft shoulder) - GASTROINTESTINAL Hx Gastrointestinal Disorders: Yes - GENITOURINARY/GYNECOLOGICAL Hx Genitourinary Disorders: No - PSYCHIATRIC Hx Substance Use: No - SURGICAL HISTORY Hx Surgeries: Yes Hx Orthopedic Surgery: Yes (LEFT SHOULDER) Other/Comment: "I HAVE PINS IN MY LEFT SHOULDER" PER PATIENT - ANESTHESIA Hx Anesthesia: Yes Hx Anesthesia Reactions: No Hx Malignant Hyperthermia: No Meds Allergies/Adverse Reactions: Allergies Allergy/AdvReac Type Severity Reaction Status Date / Time No Known Allergies Allergy Verified 04/19/18 07:38 Physical Exam - Constitutional Appears: Well, Non-toxic, No Acute Distress - Head Exam Head Exam: ATRAUMATIC, NORMOCEPHALIC - Eye Exam Eye Exam: Normal appearance. absent: Conjunctival injection, Scleral icterus - ENT Exam ENT Exam: Mucous Membranes Moist, Normal Oropharynx - Respiratory Exam Respiratory Exam: NORMAL BREATHING PATTERN. absent: Accessory Muscle Use, Respiratory Distress - Cardiovascular Exam Cardiovascular Exam: RRR - GI/Abdominal Exam GI & Abdominal Exam: Soft, Tenderness (RUQ and RLQ moderate tenderness to palpation). absent: Distended, Guarding, Rebound Additional comments: positive ann's sign - Extremities Exam Extremities exam: Positive for: pedal pulses present. Negative for: calf tenderness, pedal edema - Neurological Exam Neurological exam: Alert, Oriented x3 - Psychiatric Exam Psychiatric exam: Normal Affect, Normal Mood - Skin Skin Exam: Dry, Intact, Normal Color, Warm Results - Vital Signs Recent Vital Signs: Last Vital Signs Temp 97.8 F 04/19/18 13:27 Pulse 65 04/19/18 13:27 Resp 18 04/19/18 13:27 BP 141/74 04/19/18 13:27 Pulse Ox 95 04/19/18 14:27 - Labs Result Diagrams: 04/19/18 08:12 04/19/18 08:12 Labs: Laboratory Results - last 24 hr 04/19/18 04/19/18 04/19/18 08:12 08:12 08:12 WBC 15.3 H D RBC 4.36 L Hgb 12.7 Hct 37.7 MCV 86.5 MCH 29.2 MCHC 33.7 RDW 13.6 Plt Count 224 MPV 7.6 Neut % (Auto) 87.0 H Lymph % (Auto) 6.0 L [place] % (Auto) 5.9 Eos % (Auto) 0.3 Baso % (Auto) 0.8 Neut # (Auto) 13.3 H Lymph # (Auto) 0.9 L [place] # (Auto) 0.9 H Eos # (Auto) 0.0 Baso # (Auto) 0.1 Neutrophils % (Manual) 89 H Lymphocytes % (Manual) 5 L Monocytes % (Manual) 6 Platelet Estimate Normal RBC Morphology Normal PT 13.1 H INR 1.2 APTT 38 H Sodium 143 Potassium 4.2 Chloride 102 Carbon Dioxide 27 Anion Gap 17 BUN 28 H Creatinine 1.2 Est GFR ( Amer) > 60 Est GFR (Non-Af Amer) 60 Random Glucose 85 Calcium 9.2 Total Bilirubin 1.1 AST 23 ALT 25 Alkaline Phosphatase 103 Total Protein 6.6 Albumin 4.0 Globulin 2.5 Albumin/Globulin Ratio 1.6 Lipase 54 Urine Color Urine Clarity Urine pH Ur Specific [place] Urine Protein Urine Glucose (UA) Urine Ketones Urine Blood Urine Nitrate Urine Bilirubin Urine Urobilinogen Ur Leukocyte Esterase Urine WBC (Auto) Urine RBC (Auto) Ur Squamous Epith Cells Urine Bacteria Hyaline Casts 04/19/18 12:42 WBC RBC Hgb Hct MCV MCH MCHC RDW Plt Count MPV Neut % (Auto) Lymph % (Auto) [place] % (Auto) Eos % (Auto) Baso % (Auto) Neut # (Auto) Lymph # (Auto) [place] # (Auto) Eos # (Auto) Baso # (Auto) Neutrophils % (Manual) Lymphocytes % (Manual) Monocytes % (Manual) Platelet Estimate RBC Morphology PT INR APTT Sodium Potassium Chloride Carbon Dioxide Anion Gap BUN Creatinine Est GFR ( Amer) Est GFR (Non-Af Amer) Random Glucose Calcium Total Bilirubin AST ALT Alkaline Phosphatase Total Protein Albumin Globulin Albumin/Globulin Ratio Lipase Urine Color [place] Urine Clarity Hazy Urine pH 5.0 Ur Specific [place] 1.024 Urine Protein 1+ H Urine Glucose (UA) Normal Urine Ketones Negative Urine Blood Negative Urine Nitrate Negative Urine Bilirubin Negative Urine Urobilinogen 2.0 Ur Leukocyte Esterase Neg Urine WBC (Auto) 4 Urine RBC (Auto) 1 Ur Squamous Epith Cells 1 Urine Bacteria Rare Hyaline Casts 6-10 H Assessment & Plan - Assessment and Plan (Free Text) Assessment: 72M with RUQ abdominal pain: symptomatic cholelithiasis vs appendicitis Plan: F/U CT abdomen and pelvis with PO/IV contrast--clinical picture concerning for gallbladder disease but no signs of cholecystitis on imaging, and LFT's wnl. Evaluate for other causes NPO F/U CBC/CMP/Mag/Phos Possible OR for cholecystectomy 04/20 or 04/21 pending further diagnostic work up and medical clearance documented by Dr. Murdock IVF IV antibiotics PRN nausea and pain medications Discussed with Dr. Elvira Reece, PGY2 <Sergo Felix - Last Filed: 04/25/18 17:30> Results - Vital Signs Recent Vital Signs: Last Vital Signs Temp 97.4 F L 04/22/18 15:30 Pulse 72 04/22/18 15:30 Resp 20 04/22/18 15:30 BP 174/91 H 04/22/18 15:30 Pulse Ox 97 04/22/18 15:30 - Labs Result Diagrams: 04/22/18 06:45 04/22/18 06:45 Attending/Attestation - Attestation I have personally seen and examined this patient.: Yes I have fully participated in the care of the patient.: Yes I have reviewed all pertinent clinical information: Yes Notes (Text): Pt was seen and examined at bedside Agree with above note and assessment Pt with upper abdominal pain and nausea Abdomen: Soft, tender in RUQ ,ND Labs and radiology reviewed Ass: Cholecystitis with Cholelithiasis Plan: NPO, IVF, IV antibiotics Medical clearance C.w current mx Plan d.w pt in detail. Risk and Benefit explained in detail
--- NOTE | 2018-04-19 16:23 | NM ---
Date of service: 04/19/2018 PROCEDURE: Nuclear Medicine Hepatobiliary Scan HISTORY: Right upper quadrant pain. COMPARISON: April 19, 2018 abdominal ultrasound. TECHNIQUE: 5.3 mCi of technetium 99m Mebrofenin was administered intravenously. Planar images of the abdomen were obtained at 5 min intervals to 60 mins. Delayed images were also obtained. FINDINGS: LIVER: Timely and homogenous uptake. COMMON BILE DUCT: identified at 15 mins. GALLBLADDER: identified at 20 mins. SMALL BOWEL: Identified at 40 mins. IMPRESSION: Normal Hepatobiliary Scan. The cystic duct is patent.
[2018-04-19] MEDS: Lactated Ringer's 1,000 ML IV SCH (17:17)
[2018-04-19] MEDS: Piperacillin/Tazobact 3.375 GM in Sodium Chloride 100 ML IVPB SCH ×2 (17:17→22:04)
[2018-04-19] MEDS ORDERED: Iohexol 300 100 ML IJ ONE (17:28)
[2018-04-19] MEDS ORDERED: Iohexol 240 (50 ml) PO ONE (17:30)
[2018-04-19] MEDS: levETIRAcetam 500 MG in Sodium Chloride 0.9% 100 ML IVPB SCH (21:57)
--- NOTE | 2018-04-19 22:07 | CP.PCM.HP ---
Past Patient History - Infectious Disease Hx of Infectious Diseases: None - Past Medical History & Family History Past Medical History?: Yes Past Family History: Reviewed and not pertinent - Past Social History Smoking Status: Former Smoker Alcohol: None Drugs: Denies - CARDIAC Hx Hypercholesterolemia: Yes Hx Hypertension: Yes - PULMONARY Hx Respiratory Disorders: Yes - NEUROLOGICAL Hx Seizures: Yes - HEENT Hx HEENT Problems: Yes - RENAL Hx Chronic Kidney Disease: No - ENDOCRINE/METABOLIC Hx Endocrine Disorders: No - HEMATOLOGICAL/ONCOLOGICAL Hx Human Immunodeficiency Virus (HIV): No - INTEGUMENTARY Hx Dermatological Problems: No - MUSCULOSKELETAL/RHEUMATOLOGICAL Hx Arthritis: Yes Hx Fractures: Yes (lft shoulder) - GASTROINTESTINAL Hx Gastrointestinal Disorders: Yes - GENITOURINARY/GYNECOLOGICAL Hx Genitourinary Disorders: No - PSYCHIATRIC Hx Substance Use: No - SURGICAL HISTORY Hx Surgeries: Yes Hx Orthopedic Surgery: Yes (LEFT SHOULDER) Other/Comment: "I HAVE PINS IN MY LEFT SHOULDER" PER PATIENT - ANESTHESIA Hx Anesthesia: Yes Hx Anesthesia Reactions: No Hx Malignant Hyperthermia: No Meds Allergies/Adverse Reactions: Allergies Allergy/AdvReac Type Severity Reaction Status Date / Time No Known Allergies Allergy Verified 04/19/18 07:38 Results - Vital Signs Recent Vital Signs: Last Vital Signs Temp 98.1 F 04/19/18 19:00 Pulse 59 L 04/19/18 19:00 Resp 20 04/19/18 19:00 BP 124/78 04/19/18 19:00 Pulse Ox 96 04/19/18 19:00 - Labs Result Diagrams: 04/19/18 08:12 04/19/18 08:12 Labs: Laboratory Results - last 24 hr 04/19/18 04/19/18 04/19/18 08:12 08:12 08:12 WBC 15.3 H D RBC 4.36 L Hgb 12.7 Hct 37.7 MCV 86.5 MCH 29.2 MCHC 33.7 RDW 13.6 Plt Count 224 MPV 7.6 Neut % (Auto) 87.0 H Lymph % (Auto) 6.0 L [place] % (Auto) 5.9 Eos % (Auto) 0.3 Baso % (Auto) 0.8 Neut # (Auto) 13.3 H Lymph # (Auto) 0.9 L Real # (Auto) 0.9 H Eos # (Auto) 0.0 Baso # (Auto) 0.1 Neutrophils % (Manual) 89 H Lymphocytes % (Manual) 5 L Monocytes % (Manual) 6 Platelet Estimate Normal RBC Morphology Normal PT 13.1 H INR 1.2 APTT 38 H Sodium 143 Potassium 4.2 Chloride 102 Carbon Dioxide 27 Anion Gap 17 BUN 28 H Creatinine 1.2 Est GFR ( Amer) > 60 Est GFR (Non-Af Amer) 60 Random Glucose 85 Calcium 9.2 Total Bilirubin 1.1 AST 23 ALT 25 Alkaline Phosphatase 103 Total Protein 6.6 Albumin 4.0 Globulin 2.5 Albumin/Globulin Ratio 1.6 Lipase 54 Urine Color Urine Clarity Urine pH Ur Specific [place] Urine Protein Urine Glucose (UA) Urine Ketones Urine Blood Urine Nitrate Urine Bilirubin Urine Urobilinogen Ur Leukocyte Esterase Urine WBC (Auto) Urine RBC (Auto) Ur Squamous Epith Cells Urine Bacteria Hyaline Casts 04/19/18 12:42 WBC RBC Hgb Hct MCV MCH MCHC RDW Plt Count MPV Neut % (Auto) Lymph % (Auto) Real % (Auto) Eos % (Auto) Baso % (Auto) Neut # (Auto) Lymph # (Auto) Real # (Auto) Eos # (Auto) Baso # (Auto) Neutrophils % (Manual) Lymphocytes % (Manual) Monocytes % (Manual) Platelet Estimate RBC Morphology PT INR APTT Sodium Potassium Chloride Carbon Dioxide Anion Gap BUN Creatinine Est GFR ( Amer) Est GFR (Non-Af Amer) Random Glucose Calcium Total Bilirubin AST ALT Alkaline Phosphatase Total Protein Albumin Globulin Albumin/Globulin Ratio Lipase Urine Color [place] Urine Clarity Hazy Urine pH 5.0 Ur Specific [place] 1.024 Urine Protein 1+ H Urine Glucose (UA) Normal Urine Ketones Negative Urine Blood Negative Urine Nitrate Negative Urine Bilirubin Negative Urine Urobilinogen 2.0 Ur Leukocyte Esterase Neg Urine WBC (Auto) 4 Urine RBC (Auto) 1 Ur Squamous Epith Cells 1 Urine Bacteria Rare Hyaline Casts 6-10 H
[2018-04-20] MEDS: Piperacillin/Tazobact 3.375 GM in Sodium Chloride 100 ML IVPB SCH ×4 (03:06→21:08)
[2018-04-20] MEDS: Lactated Ringer's 1,000 ML IV SCH ×6 (03:08→22:45)
[2018-04-20 07:18] LABS: BASO % 0.5 % (0.0-2.0); EOS # 0.1 K/uL (0.0-0.7); EOS % 1.5 % (0.0-4.0); HEMOGLOBIN 11.9 g/dL (12.0-18.0); LYMPH # 0.8 K/uL (1.0-4.3); LYMPH % 8.4 % (20.0-40.0); MEAN CELL VOLUME 86.1 fL (80.0-94.0); MEAN CORPUSCULAR HEMOGLOBIN 29.5 pg (27.0-31.0); MEAN CORPUSCULAR HGB CONC 34.3 g/dL (33.0-37.0); MEAN PLATELET VOLUME 7.9 fL (7.2-11.7); MONO # 0.5 K/uL (0.0-0.8); MONO % 4.8 % (0.0-10.0); NEUT # 8.1 K/uL (1.8-7.0); NEUT % 84.8 % (50.0-75.0); NRBC % 0.1 % (0.0-2.0); PLATELET COUNT 211 K/uL (130-400); RBC 4.05 Mil/uL (4.40-5.90); RED CELL DISTRIBUTION WIDTH 13.7 % (11.5-14.5); WHITE BLOOD COUNT 9.5 K/uL (4.8-10.8)
--- NOTE | 2018-04-20 08:00 | CP.PCM.PN ---
<Reji Melo Mary - Last Filed: 04/20/18 08:02> Subjective - Date & Time of Evaluation Date of Evaluation: 04/20/18 Time of Evaluation: 07:56 - Subjective Subjective: General Surgery: Dr Felix Pt S&E, NAEO, still with RUQ pain. Pt has been NPO. Having BMs. Denies n/v, f/c. Objective - Vital Signs/Intake and Output Vital Signs (last 24 hours): Temp Pulse Resp BP Pulse Ox 97.8 F 73 20 152/82 H 94 L 04/20/18 05:00 04/20/18 05:00 04/20/18 05:00 04/20/18 05:00 04/20/18 05:00 Intake and Output: 04/20/18 04/20/18 06:59 18:59 Intake Total 1650 Balance 1650 - Medications Medications: Current Medications Folic Acid (Folic Acid) 1 mg PO DAILY [facility] Lactated Ringer's (Lactated Ringer's) 1,000 mls @ 125 mls/hr IV .Q8H [facility] Last Admin: 04/20/18 03:08 Dose: 125 mls/hr Piperacillin Sod/Tazobactam (Sod 3.375 gm/ Sodium Chloride) 100 mls @ 200 m ls/hr IVPB Q6H [facility]; Protocol Last Admin: 04/20/18 03:06 Dose: 200 mls/hr Levetiracetam 500 mg/ Sodium (Chloride) 105 mls @ 420 mls/hr IVPB Q12H [facility] Last Admin: 04/19/18 21:57 Dose: 420 mls/hr Influenza Virus Vaccine (Fluzone Quad [id number]) 60 mcg IM .ONCE ONE Stop: 04/21/18 10:01 Morphine Sulfate (Morphine) 2 mg IVP Q4 PRN PRN Reason: Pain, moderate (4-7) Multivitamins (Hexavitamin) 1 tab PO DAILY [facility] Rosuvastatin Calcium (Crestor) 5 mg PO HS [facility] Last Admin: 04/19/18 22:07 Dose: 5 mg - Labs Labs: 04/20/18 07:10 04/19/18 08:12 PT 13.1 SECONDS (9.7-12.2) H 04/19/18 08:12 INR 1.2 04/19/18 08:12 APTT 38 SECONDS (21-34) H 04/19/18 08:12 - Constitutional Appears: Non-toxic, No Acute Distress - Eye Exam Eye Exam: Normal appearance - Respiratory Exam Respiratory Exam: absent: Respiratory Distress - Cardiovascular Exam Cardiovascular Exam: REGULAR RHYTHM - GI/Abdominal Exam GI & Abdominal Exam: Soft, Tenderness (RUQ). absent: Distended, Hernia, Mass - Neurological Exam Neurological Exam: Alert, Awake Assessment and Plan - Assessment and Plan (Free Text) Assessment: 72M with biliary colic vs cholecystitis Plan: pending medical clearance plan for lap jordyn 04/21 ok for CLD today d/w Dr Elvira Melo, PGY4 <Sergo Felix B - Last Filed: 04/25/18 17:31> Objective - Vital Signs/Intake and Output Vital Signs (last 24 hours): Temp Pulse Resp BP Pulse Ox 97.4 F L 72 20 174/91 H 97 04/22/18 15:30 04/22/18 15:30 04/22/18 15:30 04/22/18 15:30 04/22/18 15:30 - Labs Labs: 04/22/18 06:45 04/22/18 06:45 PT 13.1 SECONDS (9.7-12.2) H 04/19/18 08:12 INR 1.2 04/19/18 08:12 APTT 38 SECONDS (21-34) H 04/19/18 08:12 Attending/Attestation - Attestation I have personally seen and examined this patient.: Yes I have fully participated in the care of the patient.: Yes I have reviewed all pertinent clinical information, including history, physical exam and plan: Yes Notes (Text): Pt was seen and examined at bedside Agree with above note and assessment Pt is improving clinically Pt is medically cleared for Lap Cholecystectomy OR for Lap Cholecystectomy tomorrow Consent NPO,IVF IV antibiotics Plan d.w pt in detail. Risk and Benefit explained in detail
[2018-04-20 08:08] LABS: ALB/GLOB RATIO 1.3 (1.0-2.1); ALBUMIN 3.2 g/dL (3.5-5.0); ALT/SGPT 23 U/L (21-72); AST/SGOT 21 U/L (17-59); BLOOD UREA NITROGEN 29 mg/dL (9-20); CALCIUM 8.6 mg/dl (8.6-10.4); GFR NON-AFRICAN AMERICAN 60
[2018-04-20] MEDS: levETIRAcetam 500 MG in Sodium Chloride 0.9% 100 ML IVPB SCH ×2 (08:17→21:04)
[2018-04-20 08:24] LABS: BANDS 1 % (0-2); EOSINOPHIL 1 % (0-4); LYMPHOCYTE 7 % (20-40); MONOCYTE 4 % (0-10); NEUTROPHIL 87 % (50-75); PLATELET ESTIMATE NORMAL (NORMAL); TOTAL CELLS COUNTED 100
--- NOTE | 2018-04-20 08:44 | CP.PCM.CON ---
History of Present Illness - History of Present Illness History of Present Illness: PGY6 GI Fellow Consult Note Patient is a 72yo male with PMHx significant for melanoma, seizure disorder, hyperlipidemia, H pylori gastritis (unknown status), diverticulosis who presented to the ED with abdominal pain. Patient states that he had been having diffuse abdominal pain, worst in the periumbilical area and RUQ for two days p rior to admission. In that time frame, patient had been suffering with constipation. Did not take any medications at home to try and treat his symptoms. As symptoms did not improve and he could not pass stool, he came to the ED for further evaluation. Denies any weight loss, nausea, vomiting, hemato chezia, melena, dysphagia, odynophagia. Since arrival, he had had U/S and CT scan revealing retained stool on the left side and gallstones without evidence of acute cholecystitis. He has passed BM since admission and does admit to some improvement in symptoms. 12 system ROS performed and negative except where stated PMHx: See HPI PSHx: Left shoulder repair, melanoma removed from abdomen, face FHx: Discussed with patient and denies any pertinent family history Social: Former 3ppd tobacco use for 50 years (quit 7 yrs ago), Former EtOH abuse (quit 8 years ago); Denies illicit drug use Endo: EGD/Colon - 2012 - H pylori gastritis, hiatal hernia, duodenitis, diverticulosis, hemorrhoids Past Patient History - Infectious Disease Hx of Infectious Diseases: None - Past Medical History & Family History Past Medical History?: Yes Past Family History: Reviewed and not pertinent - Past Social History Smoking Status: Former Smoker Alcohol: None Drugs: Denies - CARDIAC Hx Hypercholesterolemia: Yes Hx Hypertension: Yes - PULMONARY Hx Respiratory Disorders: Yes - NEUROLOGICAL Hx Seizures: Yes - HEENT Hx HEENT Problems: Yes - RENAL Hx Chronic Kidney Disease: No - ENDOCRINE/METABOLIC Hx Endocrine Disorders: No - HEMATOLOGICAL/ONCOLOGICAL Hx Human Immunodeficiency Virus (HIV): No - INTEGUMENTARY Hx Dermatological Problems: No - MUSCULOSKELETAL/RHEUMATOLOGICAL Hx Arthritis: Yes Hx Fractures: Yes (lft shoulder) - GASTROINTESTINAL Hx Gastrointestinal Disorders: Yes - GENITOURINARY/GYNECOLOGICAL Hx Genitourinary Disorders: No - PSYCHIATRIC Hx Substance Use: No - SURGICAL HISTORY Hx Surgeries: Yes Hx Orthopedic Surgery: Yes (LEFT SHOULDER) Other/Comment: "I HAVE PINS IN MY LEFT SHOULDER" PER PATIENT - ANESTHESIA Hx Anesthesia: Yes Hx Anesthesia Reactions: No Hx Malignant Hyperthermia: No Meds Allergies/Adverse Reactions: Allergies Allergy/AdvReac Type Severity Reaction Status Date / Time No Known Allergies Allergy Verified 04/19/18 07:38 - Medications Medications: Current Medications Folic Acid (Folic Acid) 1 mg PO DAILY [facility] Lactated Ringer's (Lactated Ringer's) 1,000 mls @ 125 mls/hr IV .Q8H [facility] Last Admin: 04/20/18 08:22 Dose: Not Given Piperacillin Sod/Tazobactam (Sod 3.375 gm/ Sodium Chloride) 100 mls @ 200 mls/hr IVPB Q6H [facility]; Protocol Last Admin: 04/20/18 03:06 Dose: 200 mls/hr Levetiracetam 500 mg/ Sodium (Chloride) 105 mls @ 420 mls/hr IVPB Q12H [facility] Last Admin: 04/20/18 08:17 Dose: 420 mls/hr Influenza Virus Vaccine (Fluzone Quad [id number]) 60 mcg IM .ONCE ONE Stop: 04/21/18 10:01 Morphine Sulfate (Morphine) 2 mg IVP Q4 PRN PRN Reason: Pain, moderate (4-7) Multivitamins (Hexavitamin) 1 tab PO DAILY [facility] Rosuvastatin Calcium (Crestor) 5 mg PO HS [facility] Last Admin: 04/19/18 22:07 Dose: 5 mg Physical Exam - Constitutional Appears: Non-toxic, No Acute Distress - Eye Exam Eye Exam: EOMI, PERRL - ENT Exam ENT Exam: Mucous Membranes Moist - Respiratory Exam Respiratory Exam: Clear to Auscultation Bilateral. absent: Rales, Rhonchi, Wheezes - Cardiovascular Exam Cardiovascular Exam: RRR, +S1, +S2 - GI/Abdominal Exam GI & Abdominal Exam: Normal Bowel Sounds, Soft, Tenderness (periumbilical, RUQ). absent: Distended, Firm, Guarding, Organomegaly, Rigid - Extremities Exam Extremities exam: Positive for: normal inspection. Negative for: pedal edema - Neurological Exam Neurological exam: Alert, Oriented x3 - Psychiatric Exam Psychiatric exam: Normal Affect, Normal Mood - Skin Skin Exam: Dry, Warm Results - Vital Signs Recent Vital Signs: Last Vital Signs Temp 97.3 F L 04/20/18 07:57 Pulse 62 04/20/18 07:57 Resp 20 04/20/18 07:57 BP 153/83 H 04/20/18 07:57 Pulse Ox 94 L 04/20/18 07:57 - Labs Result Diagrams: 04/20/18 07:10 04/20/18 07:10 Labs: Laboratory Results - last 24 hr 04/19/18 04/19/18 04/20/18 08:12 12:42 07:10 WBC 9.5 RBC 4.05 L Hgb 11.9 L Hct 34.9 L MCV 86.1 MCH 29.5 MCHC 34.3 RDW 13.7 Plt Count 211 MPV 7.9 Neut % (Auto) 84.8 H Lymph % (Auto) 8.4 L [place] % (Auto) 4.8 Eos % (Auto) 1.5 Baso % (Auto) 0.5 Neut # (Auto) 8.1 H Lymph # (Auto) 0.8 L [place] # (Auto) 0.5 Eos # (Auto) 0.1 Baso # (Auto) 0.0 Neutrophils % (Manual) 89 H 87 H Band Neutrophils % 1 Lymphocytes % (Manual) 5 L 7 L Monocytes % (Manual) 6 4 Eosinophils % (Manual) 1 Platelet Estimate Normal Normal RBC Morphology Normal Normal Sodium Potassium Chloride Carbon Dioxide Anion Gap BUN Creatinine Est GFR ( Amer) Est GFR (Non-Af Amer) Random Glucose Calcium Phosphorus Magnesium Total Bilirubin AST ALT Alkaline Phosphatase Total Protein Albumin Globulin Albumin/Globulin Ratio Urine Color [place] Urine Clarity Hazy Urine pH 5.0 Ur Specific [place] 1.024 Urine Protein 1+ H Urine Glucose (UA) Normal Urine Ketones Negative Urine Blood Negative Urine Nitrate Negative Urine Bilirubin Negative Urine Urobilinogen 2.0 Ur Leukocyte Esterase Neg Urine WBC (Auto) 4 Urine RBC (Auto) 1 Ur Squamous Epith Cells 1 Urine Bacteria Rare Hyaline Casts 6-10 H Blood Type Antibody Screen 04/20/18 04/20/18 07:10 07:10 WBC RBC Hgb Hct MCV MCH MCHC RDW Plt Count MPV Neut % (Auto) Lymph % (Auto) [place] % (Auto) Eos % (Auto) Baso % (Auto) Neut # (Auto) Lymph # (Auto) [place] # (Auto) Eos # (Auto) Baso # (Auto) Neutrophils % (Manual) Band Neutrophils % Lymphocytes % (Manual) Monocytes % (Manual) Eosinophils % (Manual) Platelet Estimate RBC Morphology Sodium 137 Potassium 3.9 Chloride 102 Carbon Dioxide 24 Anion Gap 15 BUN 29 H Creatinine 1.2 Est GFR ( Amer) > 60 Est GFR (Non-Af Amer) 60 Random Glucose 65 L Calcium 8.6 Phosphorus 3.2 Magnesium 2.0 Total Bilirubin 1.2 AST 21 ALT 23 Alkaline Phosphatase 76 Total Protein 5.7 L Albumin 3.2 L Globulin 2.5 Albumin/Globulin Ratio 1.3 Urine Color Urine Clarity Urine pH Ur Specific [place] Urine Protein Urine Glucose (UA) Urine Ketones Urine Blood Urine Nitrate Urine Bilirubin Urine Urobilinogen Ur Leukocyte Esterase Urine WBC (Auto) Urine RBC (Auto) Ur Squamous Epith Cells Urine Bacteria Hyaline Casts Blood Type O POSITIVE Antibody Screen Negative Assessment & Plan - Assessment and Plan (Free Text) Assessment: Patient is a 72yo male with PMHx significant for melanoma, seizure disorder, hyperlipidemia, H pylori gastritis (unknown status), diverticulosis who presented to the ED with abdominal pain -Constipation -Gallstones -Anemia Plan: -Patient admits to symptom improvement since admission, better after defecation -CT and U/S reviewed by me - left sided retained fecal material noted; 2cm gallstone in GB -Recommend ongoing bowel regimen with Miralax 17g PO BID -Liquid diet per surgical service -Plan for laparoscopic cholecystectomy tomorrow per surgery -If symptoms recur postoperatively, consider endoscopic evaluation -Check H pylori stool antigen to confirm eradication - Date & Time Date: 04/20/18 Time: 08:30
--- NOTE | 2018-04-20 09:31 | HP ---
CHIEF COMPLAINT: Right upper quadrant abdominal pain x2 days. HISTORY OF PRESENT ILLNESS: This is a 72-year-old white male, known to me with history of hypertension, hyperlipidemia, seizure disorder, on medications. He is compliant with diet, medication, followup; and he is not drinking more recently. For last two days, he is having right upper quadrant abdominal pain associated with nausea, no vomiting, no diarrhea. He has dyspepsia with heartburn. He denies any fever, chills, or rigors. His pain is radiating to the right flank area; not associated with any dysuria, hematuria, or pyuria. It is not positional. There is no history of any injury to the stomach. The patient denies any cough, sore throat, or runny nose. The patient denies any history of polyuria, polydipsia, or polyphagia. He denies any history of hematuria or pyuria. He denies any sneezing, but he has congestion. No fever. No chills. PAST MEDICAL HISTORY: Hypertension, seizure disorder, hyperlipidemia. SOCIAL HISTORY: He is ex-smoker, ex-alcohol user. CURRENT MEDICATIONS: At home, he is on Keppra, folic acid, and multivitamins. PHYSICAL EXAMINATION: GENERAL: An elderly male, in minimal distress. VITAL SIGNS: Blood pressure 124/78, pulse 59, respiratory rate 20, temperature 98.1. SKIN: No bruises. No purpura. No petechiae. No ecchymosis. HEENT: Atraumatic. Normocephalic. Negative pallor. Negative jaundice. Extraocular movements are intact. NECK: Supple. No JVD. No lymph node. No thyromegaly. No carotid bruit. CHEST WALL: Bilateral symmetrical expansion. No masses. BREAST: Negative for any masses. LUNGS: Bilaterally clear. No rales. No rhonchi. CARDIOVASCULAR SYSTEM: S1 and S2 regular. No heave noted. RECTAL: Enlarged prostate. ABDOMEN: Right upper quadrant tenderness with bowel sounds are present. CENTRAL NERVOUS SYSTEM: Awake, alert, and oriented to time and place. ASSESSMENT: 1. Right upper quadrant abdominal pain, rule out coronary artery disease, rule out cholecystitis versus pancreatitis versus gastritis versus duodenitis. 2. Dehydration. 3. Seizure disorder. PLAN: Admit. Detailed orders written. Seen and examined. Elmer Murdock MD [facility] # [id number]
[2018-04-20] MEDS: Multiple Vitamins Tab PO SCH (09:45)
[2018-04-20] MEDS ORDERED: Enoxaparin 40 mg Syringe SC SCH (10:00)
--- NOTE | 2018-04-20 10:16 | CT ---
Date of service: 04/19/2018 PROCEDURE: CT Abdomen and Pelvis with contrast HISTORY: RUQ and RLQ abdominal pain, R/O appendicitis COMPARISON: April 19, 2018. Abdominal ultrasound and hepatobiliary scan. TECHNIQUE: Intravenous contrast dose: 100 cc Omnipaque 300. Radiation dose: Total exam DLP = 421.70 mGy-cm. This CT exam was performed using one or more of the following dose reduction techniques: Automated exposure control, adjustment of the mA and/or kV according to patient size, and/or use of iterative reconstruction technique. FINDINGS: LOWER THORAX: Left lower lobe, lingular and right lower lobe infiltrates likely infectious/inflammatory. LIVER: Unremarkable. No gross lesion or ductal dilatation. Patent portal venous system is satisfactorily visualized without evidence portal vein thrombosis or the stigmata of portal hypertension. GALLBLADDER AND BILE DUCTS: Gallstones identified on the recent ultrasound are not readily apparent. Gallbladder remains dilated. PANCREAS: Unremarkable. No gross lesion or ductal dilatation. SPLEEN: Innumerable cystic lesions in the spleen. Limitations of the technique/technology preclude differentiating malignant etiologies from infectious/inflammatory once. ADRENALS: Unremarkable. No mass. KIDNEYS AND URETERS: Unremarkable. No hydronephrosis. No solid mass. VASCULATURE: Unremarkable. No aortic aneurysm. No atherosclerotic calcification or mural plaque present. BOWEL: Constipation without fecal impaction or obstruction. APPENDIX: A normal appendix is visualized in it's entirety. PERITONEUM: Unremarkable. No free fluid. No free air. LYMPH NODES: Unremarkable. No enlarged lymph nodes. BLADDER: Unremarkable. REPRODUCTIVE: Enlarged prostate with periurethral calcifications consistent with chronic prostatitis. BONES: No acute fracture. OTHER FINDINGS: Bilateral inguinal hernias left larger than right. The left inguinal hernia contains colon and small bowel. The right inguinal hernia contains small bowel only. No evidence of incarceration or obstruction. IMPRESSION: Multifocal bilateral infiltrates likely pneumonia. Markedly abnormal spleen. Etiologies include neoplasm and infection/inflammatory process ease. Additional benign and/or incidental findings described above. Concordant results (preliminary interpretation) provided by [employer]. Procedure Completed: 21:03. Preliminary Report: Dictated and Authenticated: 22:00. Final Interpretation: 22:12. April 20, 2018
[2018-04-20] MEDS: POLYETHYLENE GLYCOL 3350 17 GM/Dose PACKET PO SCH ×2 (10:51→17:31)
--- NOTE | 2018-04-20 12:32 | CARD ---
APPROVED REPORT Date of service: 04/19/2018 EKG Measurement Heart [id number] <Conclusion> Normal sinus rhythm Left anterior fascicular block Left ventricular hypertrophy with QRS widening Cannot rule out Septal infarct, age undetermined Abnormal ECG
--- NOTE | 2018-04-20 22:27 | CP.PCM.PN ---
Subjective - Subjective Subjective: dictated Objective - Vital Signs/Intake and Output Vital Signs (last 24 hours): Temp Pulse Resp BP Pulse Ox 97.5 F L 64 20 149/79 95 04/20/18 15:48 04/20/18 15:48 04/20/18 15:48 04/20/18 15:48 04/20/18 16:11 Intake and Output: 04/20/18 04/21/18 18:59 06:59 Intake Total 1380 Balance 1380 - Medications Medications: Current Medications Folic Acid (Folic Acid) 1 mg PO DAILY [facility] Last Admin: 04/20/18 09:45 Dose: 1 mg Lactated Ringer's (Lactated Ringer's) 1,000 mls @ 125 mls/hr IV .Q8H [facility] Last Admin: 04/20/18 17:31 Dose: Not Given Piperacillin Sod/Tazobactam (Sod 3.375 gm/ Sodium Chloride) 100 mls @ 200 mls/hr IVPB Q6H [facility]; Protocol Last Admin: 04/20/18 21:08 Dose: 200 mls/hr Levetiracetam 500 mg/ Sodium (Chloride) 105 mls @ 420 mls/hr IVPB Q12H [facility] Last Admin: 04/20/18 21:04 Dose: 420 mls/hr Influenza Virus Vaccine (Fluzone Quad [id number]) 60 mcg IM .ONCE ONE Stop: 04/21/18 10:01 Morphine Sulfate (Morphine) 2 mg IVP Q4 PRN PRN Reason: Pain, moderate (4-7) Multivitamins (Hexavitamin) 1 tab PO DAILY [facility] Last Admin: 04/20/18 09:45 Dose: 1 tab Polyethylene Glycol (Miralax) 17 gm PO BID [facility] Last Admin: 04/20/18 17:31 Dose: Not Given Rosuvastatin Calcium (Crestor) 5 mg PO HS [facility] Last Admin: 04/20/18 21:05 Dose: 5 mg - Labs Labs: 04/20/18 07:10 04/20/18 07:10 PT 13.1 SECONDS (9.7-12.2) H 04/19/18 08:12 INR 1.2 04/19/18 08:12 APTT 38 SECONDS (21-34) H 04/19/18 08:12
[2018-04-21] MEDS: Piperacillin/Tazobact 3.375 GM in Sodium Chloride 100 ML IVPB SCH ×4 (04:00→22:18)
[2018-04-21 07:10] LABS: BASO % 0.6 % (0.0-2.0); EOS # 0.2 K/uL (0.0-0.7); EOS % 2.6 % (0.0-4.0); HEMOGLOBIN 12.5 g/dL (12.0-18.0); LYMPH # 0.8 K/uL (1.0-4.3); MEAN CELL VOLUME 86.6 fL (80.0-94.0); MEAN CORPUSCULAR HEMOGLOBIN 29.3 pg (27.0-31.0); MEAN CORPUSCULAR HGB CONC 33.8 g/dL (33.0-37.0); MEAN PLATELET VOLUME 8.1 fL (7.2-11.7); MONO # 0.6 K/uL (0.0-0.8); NEUT # 5.6 K/uL (1.8-7.0); NEUT % 77.8 % (50.0-75.0); RBC 4.28 Mil/uL (4.40-5.90); RED CELL DISTRIBUTION WIDTH 13.5 % (11.5-14.5); WHITE BLOOD COUNT 7.2 K/uL (4.8-10.8)
[2018-04-21 07:24] LABS: ALB/GLOB RATIO 1.5 (1.0-2.1); ALBUMIN 3.3 g/dL (3.5-5.0); ALT/SGPT 25 U/L (21-72); AST/SGOT 18 U/L (17-59); BLOOD UREA NITROGEN 15 mg/dL (9-20); CALCIUM 8.6 mg/dl (8.6-10.4); GFR NON-AFRICAN AMERICAN > 60
[2018-04-21] MEDS ORDERED: Lidocaine/Epinephrine 1% 1:100000 10 ML IJ ONE ×2 (08:15→08:18)
[2018-04-21] MEDS ORDERED: Bupivacaine 0.25% 20 ML INJ IJ ONE (08:15)
[2018-04-21] MEDS ORDERED: Propofol 10 mg/ml Inj (20 ML) ONE (08:27)
[2018-04-21] MEDS ORDERED: Midazolam 2 MG/2 ML VIAL ONE (08:27)
[2018-04-21] MEDS ORDERED: Rocuronium 10 mg/ml (5 ml) ONE (08:28)
[2018-04-21] MEDS ORDERED: Neostigmine Methylsulfate 3mg/3ml Syringe IV ONE (09:46)
[2018-04-21] MEDS ORDERED: Influenza Vaccine 60 MCG/0.5 ML SYR (3 yr & up) IM ONE (10:00)
[2018-04-21] MEDS: Lactated Ringer's 1,000 ML IV SCH ×4 (10:05→21:54)
[2018-04-21] MEDS: Multiple Vitamins Tab PO SCH (10:05)
[2018-04-21] MEDS: POLYETHYLENE GLYCOL 3350 17 GM/Dose PACKET PO SCH ×3 (10:05→17:24)
[2018-04-21] MEDS: levETIRAcetam 500 MG in Sodium Chloride 0.9% 100 ML IVPB SCH ×2 (10:06→19:42)
--- NOTE | 2018-04-21 10:14 | PCM.SURG1 ---
Surgeon's Initial Post Op Note - Surgeon's Notes Surgeon: Sergo Felix MD Mechanical Drawing Teacher: THALIA Worrell Type of Anesthesia: General Endo Pre-Operative Diagnosis: Acute Cholecystitis and Cholelithiasis. Abdominal Pain. Leucocytosis Operative Findings: Acute Cholecystitis and Cholelithiasis. Extensive peritoneal Adhesions. Pericholecystic fluid collection Post-Operative Diagnosis: Acute Cholecystitis and Cholelithiasis. Extensive peritoneal Adhesions. Pericholecystic fluid collection Operation Performed: Robotic Cholecystectomy. Robotic Enterolysis. Robotic drainage of Pericholecystic Collection Specimen/Specimens Removed: Gallbladder Estimated Blood Loss: EBL {In ML}: 20 Blood Products Given: N/A Drains Used: No Drains Post-Op Condition: Good Date of Surgery/Procedure: 04/21/18 Time of Surgery/Procedure: 10:15
[2018-04-21] MEDS: HYDROmorphone 0.5 mg/0.5 ml ISec IVP PRN ×4 (10:30→11:30)
[2018-04-21] MEDS ORDERED: HYDROmorphone 0.5 mg/0.5 ml ISec ONE (10:31)
--- NOTE | 2018-04-21 10:49 | PN ---
DATE: 04/20/2018 SUBJECTIVE: The patient feels better. He has minimal right upper quadrant abdominal pain, positive for cholecystitis, and he is for OR. He is medically stable. No fever. No chills. PHYSICAL EXAMINATION: VITAL SIGNS: Blood pressure is 149/79, pulse 64, respiratory rate 20, temperature 97.5. LUNGS: Clear. CARDIOVASCULAR SYSTEM: S1, S2, regular. ABDOMEN: Soft. ASSESSMENT: 1. Acute cholecystitis. 2. Hypertension. PLAN: Medically stable. Elmer Murdock MD
[2018-04-21] MEDS ORDERED: Lactated Ringer's 1,000 ML IV ONE ×2 (11:28)
[2018-04-21 12:21] VITALS: RESP 20
--- NOTE | 2018-04-21 19:44 | PN ---
DATE: 04/21/2018 LOCATION: 350, bed B. SUBJECTIVE: This is a 72-year-old male seen initially for GI consultation on 04/20/2018. We examined again today, without any significant clinical changes with intermittent periods of complaint of severe abdominal pain. The entire chart is reviewed, including but not limited to the most recent lab and radiology study results, current and the previous medication list, current and the previous medical events, and today's lab results show normal CBC, with albumin 3.3, total protein 5.5. Official report of CAT scan of the abdomen and the pelvis reviewed, indicative of pneumonia with abnormal spleen size with possible neoplasm or inflammatory changes. PHYSICAL EXAMINATION: GENERAL: A 72-year-old male. VITAL SIGNS: Afebrile, with pulse of 82, respiratory rate 20 to 22, blood pressure of 150/72. HEENT: Showed dry oral mucous membranes. Nonicteric sclerae. LUNGS: Few scattered crepitations. Decreased air entry at bases. HEART: Positive S1 and S2. ABDOMEN: Mild abdominal distention and generalized tenderness. The patient is status post robotic cholecystectomy, with status post drainage of pericholecystic collection. EXTREMITIES: Without significant clubbing, cyanosis, or edema. NEUROLOGIC: No reported new neurological deficits, sensory or motor. SUGGESTIONS: 1. Agree with your plan. 2. Proton pump inhibitors IV. 3. Guaiac ordered daily x3. 4. Peripheral hyperalimentation in the meantime. 5. Further recommendations to follow. Veronica Sanchez MD
--- NOTE | 2018-04-21 21:30 | CP.PCM.PN ---
Subjective - Subjective Subjective: dictated Objective - Vital Signs/Intake and Output Vital Signs (last 24 hours): Temp Pulse Resp BP Pulse Ox 98.0 F 89 20 154/90 H 94 L 04/21/18 15:00 04/21/18 15:00 04/21/18 15:00 04/21/18 15:00 04/21/18 15:00 Intake and Output: 04/21/18 04/22/18 18:59 06:59 Intake Total 1200 Balance 1200 - Medications Medications: Current Medications Folic Acid (Folic Acid) 1 mg PO DAILY [facility] Last Admin: 04/21/18 10:05 Dose: Not Given Lactated Ringer's (Lactated Ringer's) 1,000 mls @ 125 mls/hr IV .Q8H [facility] Last Admin: 04/21/18 16:12 Dose: Not Given Piperacillin Sod/Tazobactam (Sod 3.375 gm/ Sodium Chloride) 100 mls @ 200 mls/hr IVPB Q6H [facility]; Protocol Last Admin: 04/21/18 16:18 Dose: 200 mls/hr Levetiracetam 500 mg/ Sodium (Chloride) 105 mls @ 420 mls/hr IVPB Q12H [facility] Last Admin: 04/21/18 19:42 Dose: 420 mls/hr Morphine Sulfate (Morphine) 2 mg IVP Q4 PRN PRN Reason: Pain, moderate (4-7) Multivitamins (Hexavitamin) 1 tab PO DAILY [facility] Last Admin: 04/21/18 10:05 Dose: Not Given Polyethylene Glycol (Miralax) 17 gm PO BID [facility] Last Admin: 04/21/18 17:24 Dose: Not Given Rosuvastatin Calcium (Crestor) 5 mg PO HS [facility] Last Admin: 04/20/18 21:05 Dose: 5 mg - Labs Labs: 04/21/18 06:47 04/21/18 06:47 PT 13.1 SECONDS (9.7-12.2) H 04/19/18 08:12 INR 1.2 04/19/18 08:12 APTT 38 SECONDS (21-34) H 04/19/18 08:12
--- NOTE | 2018-04-22 03:37 | PN ---
DATE: 04/21/2018 SUBJECTIVE: Postop, no fever. Some mild pain. PHYSICAL EXAMINATION: VITAL SIGNS: Blood pressure 154/90, pulse 89, respiratory rate 20, and temperature 98. LUNGS: Clear. ABDOMEN: Postop bowel sounds are present. ASSESSMENT: 1. Status post cholecystectomy. 2. Hypertension. 3. Seizure disorder. PLAN: Continue postop care. Monitor the patient. Elmer Murdock MD
[2018-04-22] MEDS: Piperacillin/Tazobact 3.375 GM in Sodium Chloride 100 ML IVPB SCH ×2 (04:10→09:24)
[2018-04-22 06:54] LABS: BASO % 0.9 % (0.0-2.0); EOS # 0.2 K/uL (0.0-0.7); EOS % 2.8 % (0.0-4.0); HEMOGLOBIN 11.4 g/dL (12.0-18.0); LYMPH # 0.8 K/uL (1.0-4.3); LYMPH % 14.8 % (20.0-40.0); MEAN CELL VOLUME 86.3 fL (80.0-94.0); MEAN CORPUSCULAR HEMOGLOBIN 29.8 pg (27.0-31.0); MEAN CORPUSCULAR HGB CONC 34.6 g/dL (33.0-37.0); MONO # 0.5 K/uL (0.0-0.8); MONO % 9.5 % (0.0-10.0); NEUT # 3.9 K/uL (1.8-7.0); RBC 3.83 Mil/uL (4.40-5.90); RED CELL DISTRIBUTION WIDTH 13.8 % (11.5-14.5); WHITE BLOOD COUNT 5.4 K/uL (4.8-10.8)
[2018-04-22 07:55] LABS: ALB/GLOB RATIO 1.2 (1.0-2.1); ALBUMIN 2.8 g/dL (3.5-5.0); ALT/SGPT 36 U/L (21-72); AST/SGOT 38 U/L (17-59); BLOOD UREA NITROGEN 10 mg/dL (9-20); CALCIUM 8.1 mg/dl (8.6-10.4); GFR NON-AFRICAN AMERICAN > 60
[2018-04-22] MEDS: levETIRAcetam 500 MG in Sodium Chloride 0.9% 100 ML IVPB SCH (08:26)
[2018-04-22] MEDS: POLYETHYLENE GLYCOL 3350 17 GM/Dose PACKET PO SCH (09:25)
[2018-04-22] MEDS: Multiple Vitamins Tab PO SCH (09:25)
[2018-04-22] MEDS ORDERED: Oxycodone/Acetaminophen 5/325 mg Tab PO PRN (09:38)
--- NOTE | 2018-04-22 09:40 | CP.PCM.PN ---
<Skyla Reece - Last Filed: 04/22/18 10:36> Subjective - Date & Time of Evaluation Date of Evaluation: 04/22/18 Time of Evaluation: 06:40 - Subjective Subjective: General surgery progress note for Dr. Felix Pt seen and examined at bedside this AM. No adverse events overnight. patient tolerated his full liquid diet yesterday and was eating a regular diet this AM. Patient has some pain that is well managed with current regimen. Objective - Vital Signs/Intake and Output Vital Signs (last 24 hours): Temp Pulse Resp BP Pulse Ox 97.3 F L 60 20 155/76 H 95 04/22/18 07:22 04/22/18 07:22 04/22/18 07:22 04/22/18 07:22 04/22/18 07:22 Intake and Output: 04/22/18 04/22/18 06:59 18:59 Intake Total 2300 Output Total 500 Balance 1800 - Medications Medications: Current Medications Folic Acid (Folic Acid) 1 mg PO DAILY [facility] Last Admin: 04/22/18 09:25 Dose: 1 mg Levetiracetam 500 mg/ Sodium (Chloride) 105 mls @ 420 mls/hr IVPB Q12H [facility] Last Admin: 04/22/18 08:26 Dose: 420 mls/hr Multivitamins (Hexavitamin) 1 tab PO DAILY [facility] Last Admin: 04/22/18 09:25 Dose: 1 tab Oxycodone/Acetaminophen (Percocet 5/325 Mg Tab) 1 tab PO Q4H PRN PRN Reason: Pain, moderate (4-7) Stop: 04/25/18 09:39 Polyethylene Glycol (Miralax) 17 gm PO BID [facility] Last Admin: 04/22/18 09:25 Dose: 17 gm Rosuvastatin Calcium (Crestor) 5 mg PO HS [facility] Last Admin: 04/21/18 22:18 Dose: 5 mg - Labs Labs: 04/22/18 06:45 04/22/18 06:45 PT 13.1 SECONDS (9.7-12.2) H 04/19/18 08:12 INR 1.2 04/19/18 08:12 APTT 38 SECONDS (21-34) H 04/19/18 08:12 - Constitutional Appears: Well, Non-toxic, No Acute Distress - Head Exam Head Exam: ATRAUMATIC, NORMOCEPHALIC - Eye Exam Eye Exam: Normal appearance. absent: Conjunctival injection, Scleral icterus - ENT Exam ENT Exam: Mucous Membranes Moist, Normal Oropharynx - Respiratory Exam Respiratory Exam: NORMAL BREATHING PATTERN. absent: Accessory Muscle Use, Respiratory Distress - GI/Abdominal Exam GI & Abdominal Exam: Soft, Tenderness (RUQ). absent: Distended Additional comments: surgical incision dressing C/D/I - Extremities Exam Extremities Exam: absent: Calf Tenderness, Pedal Edema, Tenderness - Neurological Exam Neurological Exam: Alert, Awake, Oriented x3 - Psychiatric Exam Psychiatric exam: Normal Affect, Normal Mood - Skin Skin Exam: Dry, Normal Color, Warm Assessment and Plan - Assessment and Plan (Free Text) Assessment: 72M POD#1 s/p laparoscopic cholecystectomy Plan: Continue diet as tolerated Switch to PO pain medicine D/C antibiotics and IVF If patient tolerates diet and PO pain medicine patient is clear for DC from a surgical standpoint with follow up in Dr. Felix's office in [address] Felix, who agrees with above Skyla Reece PGY2 <Sergo Felix - Last Filed: 04/25/18 17:33> Objective - Vital Signs/Intake and Output Vital Signs (last 24 hours): Temp Pulse Resp BP Pulse Ox 97.4 F L 72 20 174/91 H 97 04/22/18 15:30 04/22/18 15:30 04/22/18 15:30 04/22/18 15:30 04/22/18 15:30 - Labs Labs: 04/22/18 06:45 04/22/18 06:45 PT 13.1 SECONDS (9.7-12.2) H 04/19/18 08:12 INR 1.2 04/19/18 08:12 APTT 38 SECONDS (21-34) H 04/19/18 08:12 Attending/Attestation - Attestation I have personally seen and examined this patient.: Yes I have fully participated in the care of the patient.: Yes I have reviewed all pertinent clinical information, including history, physical exam and plan: Yes Notes (Text): Pt was seen and examined at bedside Agree with above note and assessment Pt is improved clinically Tolerating diet Can be DC home f.u as out pt Local wound care Plan d.w pt in detail.
--- NOTE | 2018-04-22 13:47 | PN ---
DATE: 04/22/2018 LOCATION: 350, bed A. SUBJECTIVE: This is a 72-year-old male seen and examined in rounds without significant clinical changes or reported active bleeding. The patient is status post left cholecystectomy, somewhat tolerating oral intake well. No actual chest pain or palpitation. No reported active bleeding. PHYSICAL EXAMINATION: GENERAL: A 72-year-old male. VITAL SIGNS: Afebrile with pulse of 64, respiratory rate 20 to 22, blood pressure of 150/72. HEENT: Showed pale, dry oral mucous membranes. Nonicteric sclerae. LUNGS: Few scattered crepitations. Decreased air entry at bases. HEART: Positive S1 and S2. ABDOMEN: Soft with mild generalized tenderness. No mass or organomegaly. No rebound tenderness or guarding. EXTREMITIES: Without significant edema, clubbing, or cyanosis. LABORATORY DATA: Today's lab result showed hemoglobin of 11.4, hematocrit 33.1 with normal white blood cells and normal platelet count with calcium 8.1, total protein 5.1, albumin 2.8. IMPRESSION: 1. Status post cholecystectomy. 2. Anemia, most likely secondary to above. 3. Re-exacerbation of peptic ulcer disease. 4. Known history of, but not limited to melanoma, seizure disorder with hyperlipidemia. 5. Known history of diverticulosis without recent history of diverticulitis. SUGGESTIONS: 1. Continue current management. 2. Peripheral hyperalimentation. 3. Advance diet as tolerated. 4. Further recommendation to follow. Veronica Sanchez MD
[2018-04-22] MEDS ORDERED: guaiFENesin DM 200 mg-20 mg/10 ml UD PO PRN (14:25)
[2018-04-22 16:00] VITALS: BP 174/91; PULSE 72; TEMP 97.4; O2SAT 97
--- NOTE | 2018-04-22 17:00 | CP.PCM.PN ---
Subjective - Date & Time of Evaluation Date of Evaluation: 04/22/18 Time of Evaluation: 11:00 Objective - Vital Signs/Intake and Output Vital Signs (last 24 hours): Temp Pulse Resp BP Pulse Ox 97.4 F L 72 20 174/91 H 97 04/22/18 15:30 04/22/18 15:30 04/22/18 15:30 04/22/18 15:30 04/22/18 15:30 Intake and Output: 04/22/18 04/22/18 06:59 18:59 Intake Total 2300 630 Output Total 500 350 Balance 1800 280 - Medications Medications: Current Medications Folic Acid (Folic Acid) 1 mg PO DAILY [facility] Last Admin: 04/22/18 09:25 Dose: 1 mg Guaifenesin/Dextromethorphan (Robitussin Dm) 10 ml PO Q4H PRN PRN Reason: Cough and congestion Last Admin: 04/22/18 14:47 Dose: 10 ml Levetiracetam 500 mg/ Sodium (Chloride) 105 mls @ 420 mls/hr IVPB Q12H [facility] Last Admin: 04/22/18 08:26 Dose: 420 mls/hr Multivitamins (Hexavitamin) 1 tab PO DAILY [facility] Last Admin: 04/22/18 09:25 Dose: 1 tab Oxycodone/Acetaminophen (Percocet 5/325 Mg Tab) 1 tab PO Q4H PRN PRN Reason: Pain, moderate (4-7) Stop: 04/25/18 09:39 Polyethylene Glycol (Miralax) 17 gm PO BID [facility] Last Admin: 04/22/18 09:25 Dose: 17 gm Rosuvastatin Calcium (Crestor) 5 mg PO HS [facility] Last Admin: 04/21/18 22:18 Dose: 5 mg - Labs Labs: 04/22/18 06:45 04/22/18 06:45 PT 13.1 SECONDS (9.7-12.2) H 04/19/18 08:12 INR 1.2 04/19/18 08:12 APTT 38 SECONDS (21-34) H 04/19/18 08:12 Assessment and Plan - Assessment and Plan (Free Text) Assessment: 72 year old male, s/p robotic cholecystectomy, seen and examined. Alert and orientedx3, tolerating diet, no acute pain noted. Cleared by surgery, discussed with DR Murdock, plan to discharge home today. Advised to follow up with surgery and PMD in 1 week.
--- NOTE | 2018-04-22 22:09 | CP.PCM.DIS ---
Provider - Provider Date of Admission: 04/21/18 18:26 Attending physician: Elmer Murdock MD Hospital Course - Lab Results Lab Results: Most Recent Lab Values WBC 5.4 K/uL (4.8-10.8) 04/22/18 06:45 RBC 3.83 Mil/uL (4.40-5.90) L 04/22/18 06:45 Hgb 11.4 g/dL (12.0-18.0) L 04/22/18 06:45 Hct 33.1 % (35.0-51.0) L 04/22/18 06:45 MCV 86.3 fL (80.0-94.0) 04/22/18 06:45 MCH 29.8 pg (27.0-31.0) 04/22/18 06:45 MCHC 34.6 g/dL (33.0-37.0) 04/22/18 06:45 RDW 13.8 % (11.5-14.5) 04/22/18 06:45 Plt Count 225 K/uL (130-400) 04/22/18 06:45 MPV 8.0 fL (7.2-11.7) 04/22/18 06:45 Neut % (Auto) 72.0 % (50.0-75.0) 04/22/18 06:45 Lymph % (Auto) 14.8 % (20.0-40.0) L 04/22/18 06:45 Moore % (Auto) 9.5 % (0.0-10.0) 04/22/18 06:45 Eos % (Auto) 2.8 % (0.0-4.0) 04/22/18 06:45 Baso % (Auto) 0.9 % (0.0-2.0) 04/22/18 06:45 Neut # (Auto) 3.9 K/uL (1.8-7.0) 04/22/18 06:45 Lymph # (Auto) 0.8 K/uL (1.0-4.3) L 04/22/18 06:45 Moore # (Auto) 0.5 K/uL (0.0-0.8) 04/22/18 06:45 Eos # (Auto) 0.2 K/uL (0.0-0.7) 04/22/18 06:45 Baso # (Auto) 0.0 K/uL (0.0-0.2) 04/22/18 06:45 Neutrophils % (Manual) 87 % (50-75) H 04/20/18 07:10 Band Neutrophils % 1 % (0-2) 04/20/18 07:10 Lymphocytes % (Manual) 7 % (20-40) L 04/20/18 07:10 Monocytes % (Manual) 4 % (0-10) 04/20/18 07:10 Eosinophils % (Manual) 1 % (0-4) 04/20/18 07:10 Platelet Estimate Normal (NORMAL) 04/20/18 07:10 RBC Morphology Normal 04/20/18 07:10 PT 13.1 SECONDS (9.7-12.2) H 04/19/18 08:12 INR 1.2 04/19/18 08:12 APTT 38 SECONDS (21-34) H 04/19/18 08:12 Sodium 138 mmol/L (132-148) 04/22/18 06:45 Potassium 3.8 mmol/L (3.6-5.2) 04/22/18 06:45 Chloride 104 mmol/L (98-107) 04/22/18 06:45 Carbon Dioxide 27 mmol/L (22-30) 04/22/18 06:45 Anion Gap 11 (10-20) 04/22/18 06:45 BUN 10 mg/dL (9-20) 04/22/18 06:45 Creatinine 1.1 mg/dL (0.8-1.5) 04/22/18 06:45 Est GFR ( Amer) > 60 04/22/18 06:45 Est GFR (Non-Af Amer) > 60 04/22/18 06:45 Random Glucose 77 mg/dL (75-110) 04/22/18 06:45 Calcium 8.1 mg/dl (8.6-10.4) L 04/22/18 06:45 Phosphorus 3.1 mg/dL (2.5-4.5) 04/22/18 06:45 Magnesium 1.9 mg/dL (1.6-2.3) 04/22/18 06:45 Total Bilirubin 0.6 mg/dL (0.2-1.3) 04/22/18 06:45 AST 38 U/L (17-59) 04/22/18 06:45 ALT 36 U/L (21-72) 04/22/18 06:45 Alkaline Phosphatase 54 U/L (38-126) 04/22/18 06:45 Total Protein 5.1 g/dL (6.3-8.3) L 04/22/18 06:45 Albumin 2.8 g/dL (3.5-5.0) L 04/22/18 06:45 Globulin 2.4 gm/dL (2.2-3.9) 04/22/18 06:45 Albumin/Globulin Ratio 1.2 (1.0-2.1) 04/22/18 06:45 Lipase 54 U/L (23-300) 04/19/18 08:12 Urine Color [place] (YELLOW) 04/19/18 12:42 Urine Clarity Hazy (Clear) 04/19/18 12:42 Urine pH 5.0 (5.0-8.0) 04/19/18 12:42 Ur Specific [place] 1.024 (1.003-1.030) 04/19/18 12:42 Urine Protein 1+ mg/dL (NEGATIVE) H 04/19/18 12:42 Urine Glucose (UA) Normal mg/dL (Normal) 04/19/18 12:42 Urine Ketones Negative mg/dL (NEGATIVE) 04/19/18 12:42 Urine Blood Negative (NEGATIVE) 04/19/18 12:42 Urine Nitrate Negative (NEGATIVE) 04/19/18 12:42 Urine Bilirubin Negative (NEGATIVE) 04/19/18 12:42 Urine Urobilinogen 2.0 mg/dL (0.2-1.0) 04/19/18 12:42 Ur Leukocyte Esterase Neg [place]/uL (Negative) 04/19/18 12:42 Urine WBC (Auto) 4 /hpf (0-5) 04/19/18 12:42 Urine RBC (Auto) 1 /hpf (0-3) 04/19/18 12:42 Ur Squamous Epith Cells 1 /hpf (0-5) 04/19/18 12:42 Urine Bacteria Rare (<OCC) 04/19/18 12:42 Hyaline Casts 6-10 /lpf (0-2) H 04/19/18 12:42 Stool H. pylori Ag Not detected (Not Detected) 04/20/18 14:54 H. pylori Source Stool 04/20/18 14:54 Blood Type O POSITIVE 04/20/18 07:10 Antibody Screen Negative 04/20/18 07:10 Discharge Exam - Head Exam Head Exam: ATRAUMATIC, NORMOCEPHALIC Discharge Plan - Discharge Medications Prescriptions: Acetaminophen [Tylenol 325mg tab] 650 mg PO Q6H PRN 7 Days tab PRN Reason: Pain, Moderate (4-7) - Follow Up Plan Condition: STABLE Disposition: HOME/ ROUTINE Instructions: Cholecystectomy (DC), Acute Abdomen (Belly Pain), Adult (DC) Additional Instructions: Call Dr. Felix's office for follow up visit in 2 weeks Do not lift more than 15 pounds for 4 weeks You may remove the outer bandaids next Thursday but leave the white tape underneath until they fall off, you may shower but keep band-aids dry until Thursday Do not soak incisions in water--no swimming or baths If you take pain medicine take stool softeners Call Dr. Felix's office for any fevers >100.4, severe nausea and vomiting, severe abdominal pain, or any other concerning symptoms Referrals: Sergo Felix MD [Staff Provider] -
--- NOTE | 2018-04-23 16:11 | DS ---
DISCHARGE DIAGNOSES: 1. Acute cholecystitis. 2. Dehydration. 3. Seizure disorder. HISTORY OF PRESENT ILLNESS: This is a 72-year-old white male who is having right upper quadrant pain, found to have acute cholecystitis. He underwent cholecystectomy and he is being discharged with outpatient followup. Condition upon discharge is stable. He was seen by Surgery. PHYSICAL EXAMINATION: VITAL SIGNS: Blood pressure 154/76, pulse 60, respiratory rate 20, temperature 97.3. LUNGS: Clear. ABDOMEN: Postop bowel sounds are present. RECTAL: Negative. MOTOR VEHICLES INSPECTOR: Awake, alert and oriented x3. ASSESSMENT: 1. Acute cholecystitis. 2. Hypertension. 3. Seizure disorder. PLAN: Discharge the patient home. Elmer Murdock MD
--- NOTE | 2018-04-25 04:01 | OP ---
PROCEDURE DATE: 04/21/2018 PREOPERATIVE DIAGNOSES: 1. Acute cholecystitis and cholelithiasis. 2. Leukocytosis. 3. Abdominal pain. POSTOPERATIVE DIAGNOSES: 1. Acute cholecystitis and cholelithiasis. 2. Leukocytosis. 3. Abdominal pain. 4. Extensive postinfectious peritoneal adhesions with fluid collection. PROCEDURES DONE: 1. Robotic cholecystectomy. 2. Robotic drainage of pericholecystic fluid collections. 3. Robotic enterolysis. SURGEON: Sergo Felix MD FRONT DESK SPECIALIST: EARLE Worrell ANESTHESIA: General endotracheal tube anesthesia. ESTIMATED BLOOD LOSS: Around 20 mL. DRAIN: None: PATHOLOGY: Gallbladder with gallstone was sent for the pathology. COMPLICATIONS: None. INTRAOPERATIVE FINDINGS: The patient had acute cholecystitis with extensive postinfectious peritoneal as well as colonic and duodenal adhesion to the gallbladder, and the patient had extensive pericholecystic fluid collection due to the [id number] cholecystitis and all the fluid was suctioned out. DESCRIPTION OF PROCEDURE: On intraoperative steps, this 72-year-old male was diagnosed with acute cholecystitis and cholelithiasis, and the patient was consented for laparoscopic-assisted robotic cholecystectomy, possible open. Brought to the OR, placed supine on the operating table. After induction of the anesthesia, the abdomen was prepped and draped in the usual sterile fashion. A supraumbilical transverse incision was made after incising the skin, subcutaneous tissue and the fascia. The robotic camera port was placed. Pneumo was created. Another three 8mm port was placed in upper abdomen and robot was brought in. Camera arm as well as arm one and two were docked, and the gallbladder was identified. The gallbladder appeared to be extremely edematous and thickened, and there was pericholecystic, omental as well as intestinal adhesion. The first extensive lysis of adhesion was done. The duodenum as well as the colon was . The omentum was also dissected, and after complete enterolysis, Calot's triangle was entered. The anterior and posterior leaflets were dissected. The intraoperative Firefly was used. The top-down approach was done and critical view of the safety was also identified. After that, the cystic duct and common bile duct junction were also identified. The cystic duct was clipped at three places and the cystic artery was also clipped at three places and cut in between two clips nearby the gallbladder, and the gallbladder was dissected free from the gallbladder fossa. The patient had extensive inflammatory process in the right upper quadrant and there was a lot of fluid collection in the perihepatic area as well as in the pericholecystic area, and all the fluid was suctioned out, and the gallbladder was taken in EndoCatch bag, taken out through the umbilical port site and sent off the table for the pathology. There was proper hemostasis in each and every part of the procedure. After complete proper hemostasis, all instruments were taken out. Robot was undocked. All the ports were taken out under vision. Pneumo was deflated. The umbilical port site was closed in two layers, the fascia with 0 Vicryl interrupted sutures, skin with 4-0 Monocryl and dry sterile dressing was applied. The patient tolerated the procedure well. Count of instrument was correct. There was no apparent complication. The patient was extubated in OR and sent to the postanesthesia care unit in stable condition. Sergo Felix MD [facility]
== END 2018-04-22 17:35 | disposition home or self-care (01) | DRG 418 ==
LOC: C.ER 07:33 → C.3T 14:53 → OBSVTOIN 04-21 18:26
PROVIDERS: ADMIT Internal Medicine; ATTEND Internal Medicine
PROC: 0DNW4ZZ Release Peritoneum, Percutaneous Endoscopic Approach (ICD-10-PCS; 2018-04-21)
PROC: 0DN84ZZ Release Small Intestine, Percutaneous Endoscopic Approach (ICD-10-PCS; 2018-04-21)
PROC: 0DNE4ZZ Release Large Intestine, Percutaneous Endoscopic Approach (ICD-10-PCS; 2018-04-21)
PROC: 0D9W4ZZ Drainage of Peritoneum, Percutaneous Endoscopic Approach (ICD-10-PCS; 2018-04-21)
PROC: 8E0W4CZ Robotic Assisted Procedure of Trunk Region, Percutaneous Endoscopic Approach (ICD-10-PCS; 2018-04-21)
PROC: 0FT44ZZ Resection of Gallbladder, Percutaneous Endoscopic Approach (ICD-10-PCS; principal; 2018-04-21 13:00)
DX: K80.12 Calculus of gallbladder with acute and chronic cholecystitis without obstruction (principal); R18.8 Other ascites; E86.0 Dehydration; K66.0 Peritoneal adhesions (postprocedural) (postinfection); G40.909 Epilepsy, unspecified, not intractable, without status epilepticus; D64.9 Anemia, unspecified; Z87.891 Personal history of nicotine dependence